=== PATIENT | male | born 1945 | race Asian ===

== ENCOUNTER 2022-03-04 07:07 | Day surgery (SDC) | payer MEDICARE ==
[2022-03-04] MEDS ORDERED: SODIUM CHLORIDE 0.9% 500 ML 500 ML IV SCH (08:00)
[2022-03-04] MEDS: SODIUM CHLORIDE 0.9% 1000 ML 1,000 ML IV SCH ×2 (08:05→10:15)
[2022-03-04 08:22] LABS: Calcium 8.8 mg/dL (8.4-10.2)
[2022-03-04] MEDS ORDERED: ASPIRIN 325 MG TAB PO NR (08:27)
[2022-03-04] MEDS ORDERED: DOBUTamine 100 MG in DEXTROSE 5% IN WATER 92 ML IV ONE (09:00)
[2022-03-04] MEDS ORDERED: HEPARIN/NS 5000 UNIT/500ML 1,000 ML IR ONE (09:47)
[2022-03-04] MEDS ORDERED: HEPARIN 10,000 UNITS/10 ML VIAL ONE (09:47)
[2022-03-04] MEDS ORDERED: LIDOCAINE (2%) 20 MG/1 ML VIAL 50 ML MDV INFILTRATI ONE (09:48)
[2022-03-04] MEDS ORDERED: MIDAZOLAM 2 MG/2 ML INJ ONE (09:48)
[2022-03-04] MEDS ORDERED: fentaNYL 100 MCG/2 ML INJ ONE (09:48)
[2022-03-04] MEDS ORDERED: NITROGLYCERIN SYRINGE 0 ML ONE (09:49)
[2022-03-04] MEDS ORDERED: DOBUTamine/D5W 500 MG/250 ML 500 MG/250 ML BAG IV ONE (09:52)
[2022-03-04] MEDS ORDERED: ASPIRIN EC 325 MG TAB PO SCH ×2 (10:00)
[2022-03-04] MEDS ORDERED: CLOPIDOGREL 75 MG TAB PO ONE (10:30)
[2022-03-04] MEDS ORDERED: traMADol 50 MG TAB PO PRN (11:45)
[2022-03-04] MEDS ORDERED: HYDROcodone/ACETAMINOPHEN 5-325 MG TAB PO PRN (11:45)
--- NOTE | 2022-03-04 12:02 | Short Stay Summary ---
Short Stay Documentation Date of service: 03/04/22 - History H&P: obtained from office - Allergies and Medications Current Medications: Allergies No Known Allergies Allergy (Verified 09/17/13 02:48) Home Medications Medication Instructions Recorded Confirmed Last Taken Type Aspirin EC [Halfprin EC] 81 mg PO DAILY 09/16/13 03/04/22 03/03/22 History Famotidine [Pepcid] 20 mg PO DAILY #30 tablet 09/20/13 03/04/22 03/03/22 Rx AtorvaSTATin [Lipitor] 20 mg PO BID 03/04/22 03/04/22 03/03/22 History Clopidogrel [Plavix] 75 mg PO QDAY 03/04/22 03/04/22 03/04/22 History Glimepiride [Amaryl] 2 mg PO QAM 03/04/22 03/04/22 03/03/22 History Ketoconazole 2% [Nizoral] 1 applicatio TP QDAY 03/04/22 03/04/22 03/03/22 History Losartan [Cozaar] 100 mg PO QDAY 03/04/22 03/04/22 03/03/22 History Phenytoin [Dilantin] 100 mg PO BID 03/04/22 03/04/22 03/03/22 History allopurinoL [Zyloprim] 100 mg PO QDAY 03/04/22 03/04/22 03/03/22 History carvediloL [Coreg] 25 mg PO BID 03/04/22 03/04/22 03/03/22 History hydroCHLOROthiazide 1 cap PO DAILY 03/04/22 03/04/22 03/01/22 History [Hydrochlorothiazide] Active Medications Hydrocodone Bitart/Acetaminophen (Hydrocodone/Acetaminophen 5-325 Mg Tab) 1 each PO Q4H PRN PRN Reason: Pain, Moderate (4-6) Sodium Chloride (Nacl 0.9% 500 Ml) 500 mls @ 50 mls/hr IV DIRECT REID Stop: 03/04/22 17:59 Sodium Chloride (Nacl 0.9% 1000 Ml) 1,000 mls @ 75 mls/hr IV DIRECT REID Last Admin: 03/04/22 10:15 Dose: 75 mls/hr Dobutamine HCl 100 mg/ (Dextrose) 100 mls @ 24.494 mls/hr IV ONCE ONE; Protocol Stop: 03/04/22 13:04 Last Admin: 03/04/22 11:15 Dose: 0 mls Tramadol HCl (Tramadol 50 Mg Tab) 50 mg PO Q4H PRN PRN Reason: Pain, Mild (1-3) - Brief post op/procedure progress note Date of procedure: 03/04/22 Pre-op diagnosis: Aortic stenosis Post-op diagnosis: same Anesthesia: local Estimated blood loss: minimal - Hospital course Hospital course: Patient presents today for cardiac cath. Patient tolerated procedure well with no complications. Patient to be discharged home and follow-up in the office as an outpatient. See cardiac cath report for full detail - Disposition Condition at discharge: Good Disposition: 01 HOME / SELF CARE / HOMELESS - Discharge Diagnoses (1) Chronic renal insufficiency Status: Acute (2) CAD (coronary artery disease) Status: Chronic (3) Cardiomyopathy Status: Chronic (4) Diabetes Status: Chronic (5) HTN (hypertension) Status: Chronic (6) History of CVA (cerebrovascular accident) Status: Chronic Short Stay Discharge Plan Activity: advance as tolerated Diet: low fat, low cholesterol, low salt Wound: keep clean and dry, per your surgeon's advice Follow up with: TOI STOUT [Other] - 7 Days CLARA ZEE MD [Staff Physician] - 03/17/22 8:30 am (Patient with follow- up appointment in our [place] office on 03/17/2022 at 8:30 AM. Phone #[phone])
[2022-03-04 16:06] VITALS: BP 144/60
--- NOTE | 2022-03-04 16:28 | Cardiac Catherization Report ---
DATE OF SERVICE: 03/04/2022 LEFT AND RIGHT HEART CATHETERIZATION CLINICAL INFORMATION: A 76-year-old male with history of coronary arterial disease with myocardial infarction 10 years ago with PCI of the LAD and RCA, has a stroke, had an echocardiogram, which shows decreased LV function from 5 years ago down to 25% with suspected aortic stenosis and has moderate fixed anterior apical, apical, and inferior segment defects, here for left and right heart catheterization, done with moderate sedation, started at 10:34, finished at 11:24 ,which is 50 minutes of moderate sedation. DESCRIPTION OF PROCEDURE: Procedure was done via the right common femoral artery, 6-Nauruan groin sheath sewn in, sterile technique and local anesthesia. A 6-Nauruan groin sheath placed in the common femoral vein. The right heart catheterization was done first, which revealed wedge of 16 mmHg, PA of 34/15 mmHg, RV is 40/10 mmHg, RA was mean of 13 mmHg. Aortic sat was 88%, RV sat was 67%, RA sat was 70%, PA sat 67%. The patient's SVR was 730. The patient's cardiac output by Bro was 7.34 and cardiac index 4.06. Then left heart catheterization was done and left systemt engaged_ with JL4 catheter. Left main is large and patent, mild luminal irregularities. LAD proximal has in-stent restenosis of 99%. Diagonal 1 small, was patent and the mid to distal LAD is filled via collaterals. Ramus is a small to medium caliber vessel, ostial 99% lesion. Circumflex is a large caliber vessel, mid 30%, bifurcates to a medium to large OM1 that is patent with mild luminal irregularities. OM2 is medium caliber, was patent, mild luminal irregularities. We see extensive collateralization from left to right feeding into the distal RCA into the mid-portion. RCA engaged with an AR mod catheter, comes from left coronary cusp. Proximal is patent, mid in-stent restenosis 100%. LV gram done in TURKMEN and RAMIREZ shows severe LV dysfunction. The patient's LVEDP is 34 mmHg, LV is 176, aortic is 176/75. No gradient across the aortic valve on pullback. The patient was infused with dobutamine at 10 mcg. LV is 150/31 mmHg. Aortic is 150/64 at dobutamine 20 mcg, LV is 170/33 mmHg and aortic is 170/72, so this is pseudo on echo as there was no increase in gradient across the aortic valve. Catheter was pulled back into the aorta. No difference from the femoral artery and the aortic artery. All catheters were taken over guidewire. A 6-Nauruan groin sheath was discontinued, manual pressure held. No hematoma, no bleeding. SUMMARY: Left main patent, LAD proximal in-stent restenosis 100% with left to left collaterals feeding into mid to distal LAD, ramus has an ostial 99%. Circumflex, proximal patent, mid 30%. OM1 patent, mild luminal irregularities, large caliber vessel. OM2 medium caliber, was patent. with left to right collaterals feeding into the mid to distal RCA. RCA comes through left coronary cusp, proximal patent, mid 100% in-stent restenosis, severe LV dysfunction, LVEDP of 34 mmHg. The patient has cardiac output 7.34. Cardiac index 4.06. No significant step-up and step-down. PA was 34/15 mmHg. Wedge was 16 mmHg, RV was 40/10 mmHg, RA was 13 mmHg. Cardiac output 7.34. Cardiac index 4.06. Discussed this with the patient's daughter and discussed for possible MACHINE II CUTTER of the LAD and RCA in view of decreased LV function. TID: [id number] RECEIPT: [id number] KATHY/ANA/JESUS/ETTA VIERA
--- NOTE | 2022-03-06 15:10 | Electrocardiograph Report ---
[facility] Test Date: 2022-03-04 Test Time: 08:00:45 Pat Name: JA FORBES Department: Room: Gender: M Fur Nailer: FALGUNI : 1945 Requested By: CLARA ZEE Order Number: [id number] Reading MD: Alexus Castillo Measurements Intervals Frakes Rate: 58 P: 38 LA: 195 QRS: 19 QRSD: 138 T: 190 QT: 458 QTc: 450 Interpretive Statements Sinus bradycardia Nonspecific intraventricular conduction delay Inferior infarct, age indeterminate Probable anteroseptal infarct, recent No previous ECG available for comparison Electronically Signed On 03-06-2022 15:10:12 EDT by Alexus Castillo
== END 2022-03-04 17:40 | disposition home or self-care (01) ==
LOC: CATHLABREC 07:07
PROVIDERS: ATTEND Internal Medicine
DX: I25.10 Atherosclerotic heart disease of native coronary artery without angina pectoris (principal); I25.2 Old myocardial infarction; I13.0 Hypertensive heart and chronic kidney disease with heart failure and stage 1 through stage 4 chronic kidney disease, or unspecified chronic kidney disease; E11.22 Type 2 diabetes mellitus with diabetic chronic kidney disease; N18.9 Chronic kidney disease, unspecified; I50.9 Heart failure, unspecified; E78.5 Hyperlipidemia, unspecified; D64.9 Anemia, unspecified; G40.909 Epilepsy, unspecified, not intractable, without status epilepticus; G93.41 Metabolic encephalopathy; Z79.899 Other long term (current) drug therapy; Z79.84 Long term (current) use of oral hypoglycemic drugs; Z79.82 Long term (current) use of aspirin; Z86.73 Personal history of transient ischemic attack (TIA), and cerebral infarction without residual deficits; Z95.5 Presence of coronary angioplasty implant and graft; Z87.01 Personal history of pneumonia (recurrent); Z98.890 Other specified postprocedural states
CPT/HCPCS: 36415; 80048; 93005; 93460; 99156; 99157; C1894; J1250; J1644; J2250; J3010; J3490; J7030; J7060; J1815; Q9967

== ENCOUNTER 2022-03-06 13:07 | Inpatient (IN) | payer MEDICARE ==
[2022-03-06] MEDS ORDERED: LACTATED RINGERS 1,000 ML IV ONE (14:01)
[2022-03-06] MEDS ORDERED: LACTULOSE 20 GM/30 ML ORAL LIQD PO ONE (14:02)
[2022-03-06] MEDS ORDERED: DOCUSATE SODIUM 100 MG/10 ML ORAL LIQD PO ONE (14:02)
--- NOTE | 2022-03-06 14:09 | Emergency Department Report ---
ED General Adult HPI - General Chief complaint: Abdominal Pain Stated complaint: CONSTIPATION PUI?: No Time Seen by Provider: 03/06/22 13:22 Source: patient, EMS Mode of arrival: Stretcher Limitations: No Limitations - History of Present Illness Initial comments: This is a pleasant 76-year-old male who speaks broken Serbian but we were able to communicate with each other and also the nurse; according to the patient he has a history of stroke in the past and is unable to move from waist down as well as he is right upper extremity. Patient also has a history of hypertension also diabetes. The reason Patient came into the ER today is due to constipation which according to patient he has not had a good bowel movement for several days. Patient himself states that he denies any other discomfort. Denies being on pain medication. Patient denies fever chill night sweat dizziness blurred vision lightheadedness headache tinnitus ear pain runny nose sore throat loss of taste loss of smell chest pain palpitation short breath cough abdominal pain nausea vomiting diarrhea dysuria myalgia arthralgia new rash and heat or cold intolerance. - Related Data Home Medications Medication Instructions Recorded Confirmed Last Taken Aspirin EC [Halfprin EC] 81 mg PO DAILY 09/16/13 03/04/22 03/03/22 AtorvaSTATin [Lipitor] 20 mg PO BID 03/04/22 03/04/22 03/03/22 Clopidogrel [Plavix] 75 mg PO QDAY 03/04/22 03/04/22 03/04/22 Glimepiride [Amaryl] 2 mg PO QAM 03/04/22 03/04/22 03/03/22 Ketoconazole 2% [Nizoral] 1 applicatio TP QDAY 03/04/22 03/04/22 03/03/22 Losartan [Cozaar] 100 mg PO QDAY 03/04/22 03/04/22 03/03/22 Phenytoin [Dilantin] 100 mg PO BID 03/04/22 03/04/22 03/03/22 allopurinoL [Zyloprim] 100 mg PO QDAY 03/04/22 03/04/22 03/03/22 carvediloL [Coreg] 25 mg PO BID 03/04/22 03/04/22 03/03/22 hydroCHLOROthiazide 1 cap PO DAILY 03/04/22 03/04/22 03/01/22 [Hydrochlorothiazide] Previous Rx's Medication Instructions Recorded Last Taken Type Famotidine [Pepcid] 20 mg PO DAILY #30 tablet 09/20/13 03/03/22 Rx Sennosides/Docusate Sodium 1 each PO DAILY 7 Days #7 03/06/22 Unknown Rx [Docusate Sodium-Senna Tablet] Simethicone 125 mg PO Q12H 5 Days #10 cap 03/06/22 Unknown Rx Allergies Allergy/AdvReac Type Severity Reaction Status Date / Time No Known Allergies Allergy Verified 03/06/22 13:09 ED Review of Systems ROS: Stated complaint: CONSTIPATION Other details as noted in HPI Comment: All other systems reviewed and negative Constitutional: no symptoms reported, see HPI Eyes: as per HPI ENT: as per HPI Respiratory: no symptoms reported Cardiovascular: as per HPI Endocrine: no symptoms reported, see HPI Gastrointestinal: constipation. denies: abdominal pain, nausea, vomiting, diarrhea, hematemesis, melena, hematochezia Musculoskeletal: as per HPI Skin: as per HPI Neurological: as per HPI Psychiatric: as per HPI Hematological/Lymphatic: as per HPI ED Past Medical Hx - Past Medical History Previous Medical History?: Yes Hx Hypertension: Yes Hx CVA: Yes Hx Heart Attack/AMI: Yes Hx Congestive Heart Failure: Yes Hx Diabetes: Yes - Surgical History Hx Coronary Stent: Yes (05/23/2003) - Social History Smoking Status: Never Smoker - Medications Home Medications: Home Medications Medication Instructions Recorded Confirmed Last Taken Type Aspirin EC [Halfprin EC] 81 mg PO DAILY 09/16/13 03/04/22 03/03/22 History Famotidine [Pepcid] 20 mg PO DAILY #30 tablet 09/20/13 03/04/22 03/03/22 Rx AtorvaSTATin [Lipitor] 20 mg PO BID 03/04/22 03/04/22 03/03/22 History Clopidogrel [Plavix] 75 mg PO QDAY 03/04/22 03/04/22 03/04/22 History Glimepiride [Amaryl] 2 mg PO QAM 03/04/22 03/04/22 03/03/22 History Ketoconazole 2% [Nizoral] 1 applicatio TP QDAY 03/04/22 03/04/22 03/03/22 History Losartan [Cozaar] 100 mg PO QDAY 03/04/22 03/04/22 03/03/22 History Phenytoin [Dilantin] 100 mg PO BID 03/04/22 03/04/22 03/03/22 History allopurinoL [Zyloprim] 100 mg PO QDAY 03/04/22 03/04/22 03/03/22 History carvediloL [Coreg] 25 mg PO BID 03/04/22 03/04/22 03/03/22 History hydroCHLOROthiazide 1 cap PO DAILY 03/04/22 03/04/22 03/01/22 History [Hydrochlorothiazide] Sennosides/Docusate Sodium 1 each PO DAILY 7 Days #7 03/06/22 Unknown Rx [Docusate Sodium-Senna Tablet] Simethicone 125 mg PO Q12H 5 Days #10 cap 03/06/22 Unknown Rx ED Physical Exam - General Limitations: No Limitations, Language Barrier (MILD LANGUAGE BARRIER BUT ABLE TO UNDERSTAND PATIENT STATES CONSTIPATION "NO POOP POOP") General appearance: alert, in no apparent distress - Head Head exam: Present: atraumatic, normocephalic, normal inspection - Eye Eye exam: Present: normal appearance, PERRL, EOMI Pupils: Present: normal accommodation - ENT ENT exam: Present: normal exam, mucous membranes moist - Neck Neck exam: Present: normal inspection - Respiratory Respiratory exam: Present: normal lung sounds bilaterally - Cardiovascular Cardiovascular Exam: Present: regular rate, normal rhythm - GI/Abdominal GI/Abdominal exam: Present: soft, diminished bowel sounds. Absent: distended, tenderness, guarding, rebound, rigid, normal bowel sounds - Extremities Exam Extremities exam: Present: normal inspection, normal capillary refill, other (Paralized bilateral lower extremity and right upper extremity.) - Back Exam Back exam: Present: normal inspection - Neurological Exam Neurological exam: Present: alert, oriented X3 - Psychiatric Psychiatric exam: Present: normal affect, normal mood - Skin Skin exam: Present: normal color ED Course Vital Signs 03/06/22 03/06/22 03/06/22 13:07 13:49 13:51 Temperature 98.7 F Pulse Rate 80 82 86 Respiratory 20 27 H 29 H Rate Blood Pressure Blood Pressure 86/55 [Left] O2 Sat by Pulse 99 100 Oximetry 03/06/22 03/06/22 03/06/22 14:01 14:41 15:01 Temperature Pulse Rate 81 74 73 Respiratory 20 20 22 Rate Blood Pressure 80/48 74/48 80/47 Blood Pressure [Left] O2 Sat by Pulse 100 100 100 Oximetry 03/06/22 03/06/22 03/06/22 15:41 17:01 17:11 Temperature Pulse Rate 77 82 Respiratory 20 24 Rate Blood Pressure 113/59 93/51 Blood Pressure [Left] O2 Sat by Pulse 100 100 96 Oximetry 03/06/22 18:01 Temperature Pulse Rate 87 Respiratory 22 Rate Blood Pressure 100/53 Blood Pressure [Left] O2 Sat by Pulse 98 Oximetry - Reevaluation(s) Reevaluation #1: 03/06/22 19:51 AFTER 1 LITER OF FLUID AND RECHECK OF PATIENT'S BMP; THERE IS NO SIGNIFICANT CHANGES IN PATIENT'S RENAL FUNCTION SINCE 03/04; WHICH LIKELY CKD. REST OF LABS UNREMARKABLE. IMAGE REVEALS NO SBO/LBO AND NO OTHER ACUTE FINDING. WILL GIVE SIMETHCONE AND ALSO GOOD BOWEL REGIMEN. 03/06/22 20:07 ED Medical Decision Making - Lab Data Result diagrams: 03/06/22 18:27 Critical care attestation.: If time is entered above; I have spent that time in minutes in the direct care of this critically ill patient, excluding procedure time. ED Disposition Clinical Impression: Abdominal bloating with cramps Disposition: 01 HOME / SELF CARE / HOMELESS Is pt being admited?: No Does the pt Need Aspirin: No Condition: Stable Additional Instructions: MAKE A FOLLOW UP APPOINTMENT WITH YOUR PRIMARY CARE PROVIDER TO BE SEEN WITHIN 3-5 DAYS. IN THE MEANTIME, TAKE THE MEDICATION THAT'S PRESCRIBED FOR YOU. Prescriptions: Sennosides/Docusate Sodium [Docusate Sodium-Senna Tablet] 1 each PO DAILY 7 Days #7 Simethicone 125 mg PO Q12H 5 Days #10 cap Referrals: PRIMARY CARE, [Primary Care Provider] - 3-5 Days Time of Disposition: 20:02
--- NOTE | 2022-03-06 14:42 | XRay Report ---
ABDOMEN 1 VIEW 03/06/2022 1:57 PM INDICATION / CLINICAL INFORMATION: CONSTIPATION. COMPARISON: None available. FINDINGS: TUBES / LINES: None. BOWEL GAS PATTERN: There is gaseous distention of the stomach. There is gas noted throughout the angelica l. The bowel is normal in caliber. There is small amount of stool noted in the colon. FREE AIR / EXTRALUMINAL GAS: None. ADDITIONAL FINDINGS: No significant additional findings. IMPRESSION: 1. No acute abnormality. Signer Name: Jose A Collier MD Signed: 03/06/2022 2:38 PM Workstation Name: [id number]
[2022-03-06] MEDS ORDERED: POLYETHYLENE GLYCOL 3350 17 GM POWDER PO ONE (15:00)
[2022-03-06] MEDS ORDERED: SIMETHICONE 80 MG CHEW TAB PO ONE (16:10)
[2022-03-06 19:23] LABS: Calcium 8.1 mg/dL (8.4-10.2)
[2022-03-07] MEDS ORDERED: MORPHINE 2 MG/1 ML INJ IV ONE (11:44)
[2022-03-07] MEDS ORDERED: ONDANSETRON 4 MG/2 ML INJ IV ONE (11:44)
--- NOTE | 2022-03-07 11:44 | History and Physical Report ---
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 Patient has diminished cognition and provides minimal history. Patient is bedbound and nonambulatory and has a palliative performance score 30% and requires 6/6 assistance with activities of daily living. Patient history taken from EMS staff, ED staff, as well as patient daughter who is at bedside during exam and interview. As per daughter the patient has experienced right leg swelling and redness over the past 2 days with persistent and worsening symptoms over the same timeframe. EMS was notified and upon arrival the patient was found to be in distress and subsequent transported to [facility] for further care and evaluation of the aforementioned symptoms. The patient was seen and evaluated in the emergency department. All lab and imaging studies reviewed. Patient found to be hypotensive with a systolic blood pressure in the 70s. Patient found to have encephalopathy, acute kidney injury, suspected right femoral artery injury, malnutrition, and debility, as well as clinical symptoms consistent with CHF decompensation. Patient admitted to telemetry due to inc reased risk of worsening symptoms after medical stabilization. Vascular surgery team consulted in ED. Cardiology team consulted in ED. Patient has diminished cognition but has a positive gag reflex and is able to protect his airway without difficulty at the time my evaluation. No reports of fever, chills, chest pain, palpitation, skin rash, recent contact, or known exposure to COVID- 19. No prior admission for review. All medication listed at time of admission has been reconciled. Advanced care planning conducted in E. Past History Past Medical History: acute CT, CAD, diabetes, seizures, stroke, other (See HPI) Past Surgical History: Other (Cardiac stent placement) Social history: single. denies: smoking, alcohol abuse, prescription drug abuse Family history: diabetes, hypertension Medications and Allergies Allergies Allergy/AdvReac Type Severity Reaction Status Date / Time No Known Allergies Allergy Verified 03/06/22 13:09 Home Medications Medication Instructions Recorded Confirmed Last Taken Type Aspirin EC [Halfprin EC] 81 mg PO DAILY 09/16/13 03/04/22 03/03/22 History Famotidine [Pepcid] 20 mg PO DAILY #30 tablet 09/20/13 03/04/22 03/03/22 Rx AtorvaSTATin [Lipitor] 20 mg PO BID 03/04/22 03/04/22 03/03/22 History Clopidogrel [Plavix] 75 mg PO QDAY 03/04/22 03/04/22 03/04/22 History Glimepiride [Amaryl] 2 mg PO QAM 03/04/22 03/04/22 03/03/22 History Ketoconazole 2% [Nizoral] 1 applicatio TP QDAY 03/04/22 03/04/22 03/03/22 History Losartan [Cozaar] 100 mg PO QDAY 03/04/22 03/04/22 03/03/22 History Phenytoin [Dilantin] 100 mg PO BID 03/04/22 03/04/22 03/03/22 History allopurinoL [Zyloprim] 100 mg PO QDAY 03/04/22 03/04/22 03/03/22 History carvediloL [Coreg] 25 mg PO BID 03/04/22 03/04/22 03/03/22 History hydroCHLOROthiazide 1 cap PO DAILY 03/04/22 03/04/22 03/01/22 History [Hydrochlorothiazide] Sennosides/Docusate Sodium 1 each PO DAILY 7 Days #7 03/06/22 Unknown Rx [Docusate Sodium-Senna Tablet] Simethicone 125 mg PO Q12H 5 Days #10 cap 03/06/22 Unknown Rx Review of Systems ROS unobtainable: due to mental status Exam - Constitutional Vitals: Temp Pulse Resp BP Pulse Ox 98.7 F 87 22 100/53 98 03/06/22 13:07 03/06/22 18:01 03/06/22 18:01 03/06/22 18:01 03/06/22 18:01 General appearance: Present: mild distress, cachectic - EENT Eyes: Present: PERRL ENT: hearing intact, clear oral mucosa - Neck Neck: Present: supple - Respiratory Respiratory effort: normal Respiratory: bilateral: diminished - Cardiovascular Heart Sounds: Present: S1 & S2. Absent: rub, click - Extremities Extremities: pulses symmetrical Extremity abnormal: edema, erythema, tenderness, other (Right groin) Peripheral Pulses: abnormal - Abdominal General gastrointestinal: Present: soft, non-tender, non-distended, normal bowel sounds Male genitourinary: Present: normal - Integumentary Integumentary: Present: clear, dry - Musculoskeletal Musculoskeletal: generalized weakness - Psychiatric Psychiatric: no appropriate mood/affect, no intact judgment & insight, no memory intact - Neurologic Neurologic: CNII-XII intact, focal deficits, no moves all extremities, no gait normal Results - Labs CBC & Chem 7: 03/06/22 18:27 Labs: Abnormal lab results 03/06/22 Range/Units 18:27 Potassium 5.2 H (3.6-5.0) mmol/L BUN 25 H (9-20) mg/dL Creatinine 1.8 H (0.8-1.3) mg/dL Glucose 150 H (75-100) mg/dL Calcium 8.1 L (8.4-10.2) mg/dL Assessment and Plan - Patient Problems (1) Injury of femoral artery Current Visit: Yes Status: Acute Plan to address problem: Vascular surgery team consulted, right lower extremity Doppler, apply pressure dressing to right lower extremity, (2) CHF (congestive heart failure) Current Visit: Yes Status: Acute Qualifiers: Heart failure type: systolic Heart failure chronicity: acute on chronic Qualified Code(s): I50.23 - Acute on chronic systolic (congestive) heart failure Plan to address problem: Strict I's/O, monitor urine output every shift, daily weight, afterload reduction, blood pressure control, supplemental oxygen, cardiology team consulted. (3) ALEXIS (acute kidney injury) Current Visit: Yes Status: Acute Plan to address problem: Monitor urine output every shift, daily weight, monitor fluid balance, (4) Seizure disorder Current Visit: Yes Status: Acute Plan to address problem: Continue antiepileptic therapy, supportive care. (5) Metabolic encephalopathy Current Visit: Yes Status: Acute Plan to address problem: Neuro check, seizure precautions, supportive care, aspiration precautions, fall precautions. (6) Malnutrition Current Visit: Yes Status: Acute Qualifiers: Malnutrition type: protein-calorie malnutrition Protein-calorie malnutrition severity: moderate Qualified Code(s): E44.0 - Moderate protein- calorie malnutrition Plan to address problem: Encourage increased protein intake when awake and alert only, dietary supplementation. (7) Vascular dementia Current Visit: Yes Status: Acute Qualifiers: Dementia behavioral disturbance: without behavioral disturbance Qualified Code(s): F01.50 - Vascular dementia without behavioral disturbance Plan to address problem: Verbal prompting, verbal redirection, benzodiazepine therapy as clinically ind icated. (8) Cerebral atherosclerosis Current Visit: Yes Status: Acute Plan to address problem: Risk factor reduction, antiplatelet therapy, supportive care. (9) Diabetes Current Visit: Yes Status: Acute Plan to address problem: Consistent carbohydrate diet, Accu-Chek, insulin protocol, hypoglycemia protocol (10) Hyperlipidemia Current Visit: Yes Status: Acute Qualifiers: Hyperlipidemia type: mixed hyperlipidemia Qualified Code(s): E78.2 - Mixed hyperlipidemia Plan to address problem: Statin therapy, supportive care. (11) Hypertension Current Visit: Yes Status: Acute Plan to address problem: Monitor blood pressure occasionally. Patient currently hypotensive. Hold antihypertensive therapy for systolic blood pressure less than equal to 110 mmHg. (12) DVT prophylaxis Current Visit: Yes Status: Acute Plan to address problem: SCD to bilateral lower extremities while in bed (13) Advance care planning Current Visit: Yes Status: Acute Plan to address problem: Disease education conducted, care plan discussed, diagnoses discussed, prognosis discussed, patient is full code. Patient family acknowledged understanding and agreement with care plan, +30 minutes. (14) Preventative health care Current Visit: Yes Status: Acute Plan to address problem: Patient family counseled regarding home safety, outpatient follow-up with primary care physician for all age and risk factor appropriate screening test. +30 minutes.
[2022-03-07] MEDS ORDERED: HYDROmorphone 0.5 MG/0.5 ML INJ IV PRN (11:54)
[2022-03-07] MEDS ORDERED: ONDANSETRON 4 MG/2 ML INJ IV PRN (11:54)
[2022-03-07] MEDS ORDERED: ALBUTEROL 2.5 MG/3 ML NEBU IH PRN (11:54)
[2022-03-07] MEDS ORDERED: DEXTROSE 50% IN WATER (25GM) 50 ML SYRINGE IV PRN (11:58)
--- NOTE | 2022-03-07 12:35 | Consultation ---
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 History is taken from patient's daughter due to patient inability to communicate. However, per patients daughter who was at bedside she reports that the patient has right lower extremity pain with bruising and blisters at the site where patient had a cardiac cath on 03/04/2022. Patient's daughter reports that the facility which patient was staying is refusing to take patient back. Patient is followed by Dr. Neff of our practice. Cardiology consulted for hematoma. Past History Past Medical History: CAD, diabetes, hypertension, hyperlipidemia, stroke Past Surgical History: No surgical history Social history: denies: smoking Medications and Allergies Allergies Allergy/AdvReac Type Severity Reaction Status Date / Time No Known Allergies Allergy Verified 03/06/22 13:09 Home Medications Medication Instructions Recorded Confirmed Last Taken Type Aspirin EC [Halfprin EC] 81 mg PO DAILY 09/16/13 03/04/22 03/03/22 History Famotidine [Pepcid] 20 mg PO DAILY #30 tablet 09/20/13 03/04/22 03/03/22 Rx AtorvaSTATin [Lipitor] 20 mg PO BID 03/04/22 03/04/22 03/03/22 History Clopidogrel [Plavix] 75 mg PO QDAY 03/04/22 03/04/22 03/04/22 History Glimepiride [Amaryl] 2 mg PO QAM 03/04/22 03/04/22 03/03/22 History Ketoconazole 2% [Nizoral] 1 applicatio TP QDAY 03/04/22 03/04/22 03/03/22 History Losartan [Cozaar] 100 mg PO QDAY 03/04/22 03/04/22 03/03/22 History Phenytoin [Dilantin] 100 mg PO BID 03/04/22 03/04/22 03/03/22 History allopurinoL [Zyloprim] 100 mg PO QDAY 03/04/22 03/04/22 03/03/22 History carvediloL [Coreg] 25 mg PO BID 03/04/22 03/04/22 03/03/22 History hydroCHLOROthiazide 1 cap PO DAILY 03/04/22 03/04/22 03/01/22 History [Hydrochlorothiazide] Sennosides/Docusate Sodium 1 each PO DAILY 7 Days #7 03/06/22 Unknown Rx [Docusate Sodium-Senna Tablet] Simethicone 125 mg PO Q12H 5 Days #10 cap 03/06/22 Unknown Rx Active Meds: Active Medications Acetaminophen (Acetaminophen 325 Mg Tab) 650 mg PO Q4H PRN PRN Reason: Pain MILD(1-3)/Fever >100.5/[place] Albuterol (Albuterol 2.5 Mg/3 Ml Nebu) 2.5 mg IH Q4HRT PRN PRN Reason: Shortness Of Breath Allopurinol (Allopurinol 100 Mg Tab) 100 mg PO QDAY REID Atorvastatin Calcium (Atorvastatin 20 Mg Tab) 20 mg PO QHS REID Atorvastatin Calcium (Atorvastatin 40 Mg Tab) 20 mg PO BID [facility] Dextrose (Dextrose 50% In Water (25gm) 50 Ml Syringe) 50 ml IV Q30MIN PRN; Protocol PRN Reason: Hypoglycemia Famotidine (Famotidine 10 Mg Tab) 20 mg PO DAILY [facility] Hydromorphone HCl (Hydromorphone 0.5 Mg/0.5 Ml Inj) 0.5 mg IV Q3H PRN PRN Reason: Pain , Severe (7-10) Sodium Chloride (Nacl 0.9% 1000 Ml) 1,000 mls @ 42 mls/hr IV DIRECT [facility] Insulin Human Lispro (Insulin Lispro 100 Unit/Ml) 0 unit SUB-Q ACHS REID; Protocol Ketoconazole (Ketoconazole 2% Cream 15 Gm) 1 applic TP QDAY [facility] Ondansetron HCl (Ondansetron 4 Mg/2 Ml Inj) 4 mg IV Q8H PRN PRN Reason: Nausea And Vomiting Oxycodone/Acetaminophen (Oxycodone /Acetaminophen 5-325mg Tab) 1 tab PO Q6H PRN PRN Reason: Pain, Moderate (4-6) Phenytoin (Phenytoin 100 Mg Capsule.Er) 100 mg PO BID [facility] Sodium Chloride (Sodium Chloride 0.9% 10 Ml Flush Syringe) 10 ml IV BID REID Sodium Chloride (Sodium Chloride 0.9% 10 Ml Flush Syringe) 10 ml IV PRN PRN PRN Reason: LINE FLUSH Review of Systems Constitutional: no weight loss, no weight gain, no fever, no chills Ears, nose, mouth and throat: no sinus pressure, no sinus pain Cardiovascular: no chest pain, no orthopnea Respiratory: no shortness of breath, no dyspnea on exertion Gastrointestinal: abdominal pain, constipation Genitourinary Male: no dysuria Integumentary: sores, blisters, color changes Neurological: no head injury, no transient paralysis Psychiatric: no anxiety, no memory loss Physical Examination Vital Signs Temp Pulse Resp BP Pulse Ox 98.7 F 80 20 86/55 99 03/06/22 13:07 03/06/22 13:07 03/06/22 13:07 03/06/22 13:07 03/06/22 13:07 General appearance: no acute distress Neck: Positive: trachea midline Cardiac: Positive: Reg Rate and Rhythm Lungs: Positive: Normal Breath Sounds Neuro: Positive: Grossly Intact Abdomen: Positive: Soft Skin: Positive: Other Extremities: Present: upper extr. pulses. Absent: edema Results 03/06/22 18:27 Comprehensive Metabolic Panel 03/06/22 Range/Units 18:27 Sodium 138 (137-145) mmol/L Potassium 5.2 H (3.6-5.0) mmol/L Chloride 106.9 (98-107) mmol/L Carbon Dioxide 22 (22-30) mmol/L BUN 25 H (9-20) mg/dL Creatinine 1.8 H (0.8-1.3) mg/dL Glucose 150 H (75-100) mg/dL Calcium 8.1 L (8.4-10.2) mg/dL - Imaging and Cardiology Echo: report reviewed Cardiac cath: report reviewed Assessment and Plan Patient is a 76-year-old male with a past medical history of ischemic cardiomyopathy, hypertension, chronic renal sufficiency, history of CVA, susana betes who presents to the ED for leg pain. Hematoma/pseudoaneurysm? Chronic systolic heart failure Ischemic cardiomyopathy Coronary artery disease Hypertension Diabetes Chronic renal insufficiency History of CVA Echocardiogram 02/23/2022- LV chamber is moderately dilated. There is borderline LV hypertrophy. LV systolic function is severely reduced. The estimated left ventricle ejection fraction is 25-30%. Normal left atrial pressure with Grade I diastolic dysfunction. There is basal septal hypokinesis. There is mid anterior, mid septal, apical septal, apical lateral akinesis. There is normal right ventricular size, wall dimension, and systolic function. The aortic valve leaflet excursion is moderately reduced. There is mild aortic regurgitation. There is mild aortic valve stenosis. AV Mean gradient: 7.07 mmHg. AV Peak gradient: 11.6 mmHg. There is no mitral regurgitation. There is trace tricuspid regurgitation. There is no pulmonic regurgitation. No left ventricular thrombus noted with LV contrast images Cardiac cath 03/04/2022-left main patent, LAD proximal in-stent restenosis 100% with left to left collaterals feeding into the mid to ostial LAD, ramus has an ostial 99%. Circumflex, proximal patent mid 30%. OM1 patent, mild luminary irregularities, large caliber vessel. OM2 medium caliber was patent with left to right collaterals feeding into the mid to distal RCA. RCA comes to the left coronary cusp, proximal pain, mid 100% in-stent restenosis, severe LV dysfunction Outpatient medications: Aspirin, plavix, Losartan 100mg PO QD, atorvastatin 20mg PO QHs, Coreg 25mg PO BID, HCTZ 12.5mg PO QD Plan: Patient found to have hematoma with blisters on right lower extremity cardiac catheterization site on 03/04/2022 Stat arterial duplex rule shows a small pseudoaneurysm off the right proximal superficial femoral artery. Vascular following will defer to their recommendations. Apply pressure dressing Stat CBC ordered Will resume atorvastatin Will hold off on GDMT due to patient's hypotension at this time Will hold off on aspirin and Plavix until CBC results to ensure patient is not anemic Patient seen in conjunction with Dr. Neff who agrees with this plan of care - Patient Problems (1) Renal insufficiency Current Visit: Yes Status: Acute (2) Hematoma Current Visit: Yes Status: Acute (3) Pseudoaneurysm Current Visit: Yes Status: Acute (4) CAD (coronary artery disease) Current Visit: No Status: Chronic (5) Cardiomyopathy Current Visit: No Status: Chronic (6) Diabetes Current Visit: No Status: Chronic (7) HTN (hypertension) Current Visit: No Status: Chronic (8) History of CVA (cerebrovascular accident) Current Visit: No Status: Chronic
--- NOTE | 2022-03-07 12:39 | Vascular Lab Report ---
DUPLEX DOPPLER LOWER EXTREMITY ARTERIAL, RIGHT INDICATION / CLINICAL INFORMATION: r/o pseudoanerysm. TECHNIQUE: Arterial duplex examination of the right lower extremity performed using B-mode, color sheba w and spectral Doppler assessment. FINDINGS: RIGHT: Common Femoral Artery: PSV 100 cm/sec. Triphasic waveform. Proximal SFA: PSV 80 cm/sec. Triphasic waveform. Mid SFA: PSV 123 cm/sec. Biphasic waveform. Distal SFA: PSV 65 cm/sec. Triphasic waveform. Popliteal Artery: PSV 95 cm/sec. Triphasic waveform. Posterior tibial artery: Not well seen Dorsalis Pedis Artery: Not well seen ADDITIONAL FINDINGS: There is a pseudoaneurysm off of the common femoral artery. This pseudoaneurysm has a neck measuring 3 mm and the pseudoaneurysm itself measures 0.6 x 0.5 cm RIGHT ANANYA: Not measured IMPRESSION: 1. Pseudoaneurysm noted off the right common femoral artery with a 3 mm neck. The pseudoaneurysm itse lf measures approximately 0.6 x 0.5 cm. Ankle-Brachial Index (ANANYA): - Calcified arteries > 1.4 - Normal = 0.9-1.4 - Mild PAD = 0.7-0.89 - Moderate PAD = 0.51-0.69 - Severe PAD < 0.5 Doppler Waveform: - Triphasic is normal. - Biphasic is abnormal if clear transition from triphasic signal along vascular tree. - Monophasic is abnormal. Signer Name: Jason Jack DO Signed: 03/07/2022 12:34 PM Workstation Name: [id number]
--- NOTE | 2022-03-07 13:29 | Consultation ---
History of Present Illness - Reason for Consult Consult date: 03/07/22 Psuedoaneurysm Requesting physician: LCARA ZEE - History of Present Illness 76 YO Male Assisted Living Facility Resident with CVA complicated by RHP and Dysarthria on DAPT, Debilty, DM, [place], CHF, HLD, Gout, HTN, CAD S/P Stent placement presents ED for evaluation. Patient has diminished cognition and is unable to provide detailed history. This is a pleasant 76-year-old male who speaks broken Welsh but we were able to communicate with each other and also the nurse; according to the patient he has a history of stroke in the past and is unable to move from waist down as well as he is right upper extremity. Patient also has a history of hypertension also diabetes. The reason Patient came into the ER today is due to constipation which according to patient he has not had a good bowel movement for several days. Patient himself states that he denies any other discomfort. Denies being on pain medication. Patient denies fever chill night sweat dizziness blurred vision lightheadedness headache tinnitus ear pain runny nose sore throat loss of taste loss of smell chest pain palpitation short breath cough abdominal pain nausea vomiting diarrhea dysuria myalgia arthralgia new rash and heat or cold intolerance. Past History Past Medical History: CAD, diabetes, hypertension, hyperlipidemia, stroke Past Surgical History: No surgical history Social history: denies: smoking Medications and Allergies Allergies Allergy/AdvReac Type Severity Reaction Status Date / Time No Known Allergies Allergy Verified 03/06/22 13:09 Home Medications Medication Instructions Recorded Confirmed Last Taken Type Aspirin EC [Halfprin EC] 81 mg PO DAILY 09/16/13 03/04/22 03/03/22 History Famotidine [Pepcid] 20 mg PO DAILY #30 tablet 09/20/13 03/04/22 03/03/22 Rx AtorvaSTATin [Lipitor] 20 mg PO BID 03/04/22 03/04/22 03/03/22 History Clopidogrel [Plavix] 75 mg PO QDAY 03/04/22 03/04/22 03/04/22 History Glimepiride [Amaryl] 2 mg PO QAM 03/04/22 03/04/22 03/03/22 History Ketoconazole 2% [Nizoral] 1 applicatio TP QDAY 03/04/22 03/04/22 03/03/22 History Losartan [Cozaar] 100 mg PO QDAY 03/04/22 03/04/22 03/03/22 History Phenytoin [Dilantin] 100 mg PO BID 03/04/22 03/04/22 03/03/22 History allopurinoL [Zyloprim] 100 mg PO QDAY 03/04/22 03/04/22 03/03/22 History carvediloL [Coreg] 25 mg PO BID 03/04/22 03/04/22 03/03/22 History hydroCHLOROthiazide 1 cap PO DAILY 03/04/22 03/04/22 03/01/22 History [Hydrochlorothiazide] Sennosides/Docusate Sodium 1 each PO DAILY 7 Days #7 03/06/22 Unknown Rx [Docusate Sodium-Senna Tablet] Simethicone 125 mg PO Q12H 5 Days #10 cap 03/06/22 Unknown Rx Active Meds: Active Medications Acetaminophen (Acetaminophen 325 Mg Tab) 650 mg PO Q4H PRN PRN Reason: Pain MILD(1-3)/Fever >100.5/[place] Albuterol (Albuterol 2.5 Mg/3 Ml Nebu) 2.5 mg IH Q4HRT PRN PRN Reason: Shortness Of Breath Allopurinol (Allopurinol 100 Mg Tab) 100 mg PO QDAY [facility] Atorvastatin Calcium (Atorvastatin 20 Mg Tab) 20 mg PO QHS REID Atorvastatin Calcium (Atorvastatin 40 Mg Tab) 20 mg PO BID [facility] Dextrose (Dextrose 50% In Water (25gm) 50 Ml Syringe) 50 ml IV Q30MIN PRN; Protocol PRN Reason: Hypoglycemia Famotidine (Famotidine 10 Mg Tab) 20 mg PO DAILY [facility] Hydromorphone HCl (Hydromorphone 0.5 Mg/0.5 Ml Inj) 0.5 mg IV Q3H PRN PRN Reason: Pain , Severe (7-10) Sodium Chloride (Nacl 0.9% 1000 Ml) 1,000 mls @ 42 mls/hr IV DIRECT [facility] Insulin Human Lispro (Insulin Lispro 100 Unit/Ml) 0 unit SUB-Q ACHS [facility]; Protocol Ketoconazole (Ketoconazole 2% Cream 15 Gm) 1 applic TP QDAY [facility] Ondansetron HCl (Ondansetron 4 Mg/2 Ml Inj) 4 mg IV Q8H PRN PRN Reason: Nausea And Vomiting Oxycodone/Acetaminophen (Oxycodone /Acetaminophen 5-325mg Tab) 1 tab PO Q6H PRN PRN Reason: Pain, Moderate (4-6) Phenytoin (Phenytoin 100 Mg Capsule.Er) 100 mg PO BID [facility] Sodium Chloride (Sodium Chloride 0.9% 10 Ml Flush Syringe) 10 ml IV BID [facility] Sodium Chloride (Sodium Chloride 0.9% 10 Ml Flush Syringe) 10 ml IV PRN PRN PRN Reason: LINE FLUSH Review of Systems All systems: negative Exam - Constitutional Vitals: Temp Pulse Resp BP Pulse Ox 98.7 F 87 16 115/61 98 03/06/22 13:07 03/07/22 12:13 03/07/22 12:13 03/07/22 12:13 03/07/22 12:13 General appearance: Present: mild distress (Right groin and thigh pain, large hematoma) - EENT Eyes: Present: EOM intact ENT: hearing intact - Respiratory Respiratory effort: normal - Extremities Extremities: normal temperature, normal color, abnormal (Large hematoma of the right thigh with some lateral areas of blistering and some medial areas of skin breakdown.) - Abdominal General gastrointestinal: Present: soft, non-tender - Psychiatric Psychiatric: appropriate mood/affect, agitated Results - Labs CBC & Chem 7: 03/06/22 18:27 Labs: Abnormal lab results 03/06/22 Range/Units 18:27 Potassium 5.2 H (3.6-5.0) mmol/L BUN 25 H (9-20) mg/dL Creatinine 1.8 H (0.8-1.3) mg/dL Glucose 150 H (75-100) mg/dL Calcium 8.1 L (8.4-10.2) mg/dL - Imaging and Cardiology Venous US: report reviewed, image reviewed (Arterial ultrasound) Assessment and Plan 76-year-old male with recent right and left heart cath for coronary artery disease and aortic stenosis who had the cath performed on 03/04/2022 and this was complicated by right groin hematoma with pseudoaneurysm. Patient is on dual antiplatelet therapy. Patient has a moderate amount of discomfort of the right thigh. He has chronic deficits of the right thigh and foot with limited motor function at baseline. The bilateral calves and feet are warm and well-perfused. Ultrasound demonstrates a small 6 mm pseudoaneurysm off the right proximal superficial femoral artery with a 1 to 2 mm neck. Pressure dressing applied to the right groin which will be removed tomorrow. Repeat ultrasound will be performed tomorrow. The pseudoaneurysm is below the typical size requiring solitario tment. Hopefully this will thrombose overnight. Will need wound care for management of the skin breakdown.
[2022-03-07] MEDS: INSULIN LISPRO 100 UNIT/ML SUB-Q SCH ×2 (18:50→21:30)
[2022-03-07] MEDS: PHENYTOIN 100 MG CAPSULE.ER PO SCH (21:48)
[2022-03-08 07:28] LABS: Mean Corpuscular HGB Conc 32 % (32-34); Mean Corpuscular Volume 96 fl (84-94); Platelet Count 184 K/mm3 (140-440); Red Blood Count 1.88 M/mm3 (3.65-5.03); Red Cell Distribution Width 14.4 % (13.2-15.2)
[2022-03-08 08:00] LABS: Hemoglobin 5.8 gm/dl (11.8-15.2)
[2022-03-08] MEDS ORDERED: SODIUM CHLORIDE 0.9% 500 ML 500 ML IV NR (08:14)
--- NOTE | 2022-03-08 08:25 | Progress Note ---
<KIERRA GUTIERREZ - Last Filed: 03/08/22 16:13> Assessment and Plan - Patient Problems (1) ALEXIS (acute kidney injury) Current Visit: Yes Status: Acute Plan to address problem: Likely secondary to dehydration/blood loss Monitor kidney function. We will consult chin strap cutter if needed Avoid nephrotoxic drugs including nonsteroidal anti-inflammatory agents. (2) CHF (congestive heart failure) Current Visit: Yes Status: Acute Qualifiers: Heart failure type: systolic Heart failure chronicity: acute on chronic Qualified Code(s): I50.23 - Acute on chronic systolic (congestive) heart failure Plan to address problem: Strict I's/O, monitor urine output every shift, daily weight Monitor blood pressureBP med on hold due to low blood pressure likely secondary to blood loss from hematoma Patient is status post cardiac cathc03/04/22-family brought him back due to right groin hematoma and bruises patient has history of ischemic cardiomyopathy, CVA and right-sided paraplegic. (3) Anemia Current Visit: Yes Status: Acute Plan to address problem: Likely secondary from blood loss left thigh hematoma post catheterization Transfuse 2 units of packed red blood cells Monitor H&H, start multivitamin and folic acid supplement Abdominal x-ray and chest x-ray doneno acute finding (4) Hypertension Current Visit: Yes Status: Acute Plan to address problem: Monitor blood pressure Hold blood pressure medicine presentlypatient has low blood pressure likely secondary to blood loss. Will resume antihypertensive if needed when patient is stable. 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 Position change every 2 hours and keep patient clean and dry. PT OT when patient is stable (8) Seizure disorder Current Visit: Yes Status: Acute Plan to address problem: Continue antiplatelet/seizure disorder Seizure precaution/fall precaution History Interval history: 03/08/22-Patient seen at bedside with patient nurse present. He is status post left femoral cardiac cath with hematoma and pressure dressing present. No evidence of bleeding noted on the dressing. Bilateral pedal pulses positive. I reviewed lab, medication record, and vital signs. H&H 5.8 today. Patient is typed and crossed for 2 units packed red blood cells. Blood pressure 94/54. 250 normal saline bolus x1. O2 sat 90 to 95%. Patient on continuous monitor and oxygen 2 L nasal cannula till completion of blood transfusion. I reviewed plan of care with the attending. Hospitalist Physical - Constitutional Vitals: Temp Pulse Resp BP Pulse Ox 98.4 F 81 18 104/55 97 03/08/22 04:12 03/08/22 04:12 03/08/22 04:12 03/08/22 04:12 03/08/22 08:03 General appearance: Present: mild distress - Respiratory Respiratory effort: other (Patient seen on room airplaced on nasal cannula 2 L. O2 sat 95 to 98%) Respiratory: bilateral: CTA - Extremities Extremity abnormal: other (Left groin hematomapositive pedal pulses) - Abdominal General gastrointestinal: non-tender - Integumentary Integumentary: Present: clear, warm - Allied Health Allied health notes reviewed: nursing, PT Results - Labs CBC & Chem 7: 03/08/22 06:18 03/08/22 06:18 Labs: Laboratory Last Values WBC 13.6 K/mm3 (4.5-11.0) H 03/08/22 06:18 RBC 1.88 M/mm3 (3.65-5.03) L 03/08/22 06:18 Hgb 5.8 gm/dl (11.8-15.2) L* 03/08/22 06:18 Hct 18.0 % (35.5-45.6) L* 03/08/22 06:18 MCV 96 fl (84-94) H 03/08/22 06:18 MCH 32 pg (28-32) 03/08/22 06:18 MCHC 32 % (32-34) 03/08/22 06:18 RDW 14.4 % (13.2-15.2) 03/08/22 06:18 Plt Count 184 K/mm3 (140-440) 03/08/22 06:18 Sodium 141 mmol/L (137-145) 03/08/22 06:18 Potassium 4.5 mmol/L (3.6-5.0) 03/08/22 06:18 Chloride 107.1 mmol/L (98-107) H 03/08/22 06:18 Carbon Dioxide 22 mmol/L (22-30) 03/08/22 06:18 Anion Gap 16 mmol/L 03/08/22 06:18 BUN 36 mg/dL (9-20) H 03/08/22 06:18 Creatinine 2.0 mg/dL (0.8-1.3) H 03/08/22 06:18 Estimated GFR 33 ml/min 03/08/22 06:18 BUN/Creatinine Ratio 18 % 03/08/22 06:18 Glucose 95 mg/dL (75-100) 03/08/22 06:18 POC Glucose 98 mg/dL (70-105) 03/08/22 07:37 Calcium 8.0 mg/dL (8.4-10.2) L 03/08/22 06:18 Win/IV: Voiding Method Condom Catheter Active Medications - Current Medications Current Medications: Generic Name Dose Route Start Last Admin Trade Name Freq PRN Reason Stop Dose Admin Acetaminophen 650 mg 03/07/22 11:54 Acetaminophen 325 Mg Tab PO Q4H PRN Pain MILD(1-3)/Fever >100.5/CALLOWAY Albuterol 2.5 mg 03/07/22 11:54 Albuterol 2.5 Mg/3 Ml Nebu IH Q4HRT PRN Shortness Of Breath Allopurinol 100 mg 03/08/22 10:00 Allopurinol 100 Mg Tab PO QDAY REID Atorvastatin Calcium 20 mg 03/07/22 22:00 03/07/22 21:48 Atorvastatin 20 Mg Tab PO 20 mg QHS REID Administration Dextrose 50 ml 03/07/22 11:58 Dextrose 50% In Water (25gm) 50 Ml Syringe IV Q30MIN PRN Hypoglycemia Protocol Famotidine 20 mg 03/08/22 10:00 Famotidine 10 Mg Tab PO DAILY REID Hydromorphone HCl 0.5 mg 03/07/22 11:54 Hydromorphone 0.5 Mg/0.5 Ml Inj IV Q3H PRN Pain , Severe (7-10) Sodium Chloride 1,000 mls @ 42 mls/hr 03/07/22 12:00 Nacl 0.9% 1000 Ml IV DIRECT REID Sodium Chloride 500 mls @ 0 mls/hr 03/08/22 08:14 Nacl 0.9% 500 Ml IV 03/08/22 15:00 ONCE NR As Directed Insulin Human Lispro 0 unit 03/07/22 16:30 03/07/22 21:30 Insulin Lispro 100 Unit/Ml SUB-Q Not Given ACHS REID Protocol Ketoconazole 1 applic 03/08/22 10:00 Ketoconazole 2% Cream 15 Gm TP QDAY REID Ondansetron HCl 4 mg 03/07/22 11:54 Ondansetron 4 Mg/2 Ml Inj IV Q8H PRN Nausea And Vomiting Oxycodone/Acetaminophen 1 tab 03/07/22 11:54 Oxycodone /Acetaminophen 5-325mg Tab PO Q6H PRN Pain, Moderate (4-6) Phenytoin 100 mg 03/07/22 22:00 03/07/22 21:48 Phenytoin 100 Mg Capsule.Er PO 100 mg BID REID Administration Sodium Chloride 10 ml 03/07/22 22:00 03/07/22 21:49 Sodium Chloride 0.9% 10 Ml Flush Syringe IV 10 ml BID REID Administration Sodium Chloride 10 ml 03/07/22 11:54 Sodium Chloride 0.9% 10 Ml Flush Syringe IV PRN PRN LINE FLUSH <PAUL CRISTINA - Last Filed: 03/09/22 07:28> Assessment and Plan Assessment and plan: I saw and evaluated the patient. I agree with the findings and the plan of care as documented in the Nurse Practitioner's~note, with the following corrections and additions. Hospitalist Physical - Constitutional Vitals: Temp Pulse Resp BP Pulse Ox 98 F 80 20 120/50 97 03/09/22 02:30 03/09/22 02:30 03/09/22 02:30 03/09/22 02:30 03/09/22 02:30 Results - Labs CBC & Chem 7: 03/09/22 05:31 03/08/22 06:18 Labs: Laboratory Last Values WBC 11.9 K/mm3 (4.5-11.0) H 03/09/22 05:31 RBC 3.22 M/mm3 (3.65-5.03) L 03/09/22 05:31 Hgb 9.7 gm/dl (11.8-15.2) L D 03/09/22 05:31 Hct 29.5 % (35.5-45.6) L D 03/09/22 05:31 MCV 92 fl (84-94) 03/09/22 05:31 MCH 30 pg (28-32) 03/09/22 05:31 MCHC 33 % (32-34) 03/09/22 05:31 RDW 15.6 % (13.2-15.2) H 03/09/22 05:31 Plt Count 216 K/mm3 (140-440) 03/09/22 05:31 Sodium 141 mmol/L (137-145) 03/08/22 06:18 Potassium 4.5 mmol/L (3.6-5.0) 03/08/22 06:18 Chloride 107.1 mmol/L (98-107) H 03/08/22 06:18 Carbon Dioxide 22 mmol/L (22-30) 03/08/22 06:18 Anion Gap 16 mmol/L 03/08/22 06:18 BUN 36 mg/dL (9-20) H 03/08/22 06:18 Creatinine 2.0 mg/dL (0.8-1.3) H 03/08/22 06:18 Estimated GFR 33 ml/min 03/08/22 06:18 BUN/Creatinine Ratio 18 % 03/08/22 06:18 Glucose 95 mg/dL (75-100) 03/08/22 06:18 POC Glucose 79 mg/dL (70-105) 03/08/22 20:56 Hemoglobin A1c < 4.0 % (4-6) L 03/08/22 14:25 Calcium 8.0 mg/dL (8.4-10.2) L 03/08/22 06:18 Blood Type A POSITIVE 03/08/22 14:00 Antibody Screen Negative 03/08/22 14:00 Crossmatch See Detail 03/08/22 14:00 Win/IV: Voiding Method Condom Catheter Active Medications - Current Medications Current Medications: Generic Name Dose Route Start Last Admin Trade Name Freq PRN Reason Stop Dose Admin Acetaminophen 650 mg 03/07/22 11:54 03/08/22 12:24 Acetaminophen 325 Mg Tab PO 650 mg Q4H PRN Administration Pain MILD(1-3)/Fever >100.5/[place]AY Albuterol 2.5 mg 03/07/22 11:54 Albuterol 2.5 Mg/3 Ml Nebu IH Q4HRT PRN Shortness Of Breath Allopurinol 100 mg 03/08/22 10:00 03/08/22 12:22 Allopurinol 100 Mg Tab PO 100 mg QDAY REID Administration Aspirin 81 mg 03/08/22 10:00 03/08/22 12:22 Aspirin 81 Mg Tab Chew PO 81 mg QDAY REID Administration Atorvastatin Calcium 20 mg 03/07/22 22:00 03/08/22 21:47 Atorvastatin 20 Mg Tab PO 20 mg QHS REID Administration Clopidogrel Bisulfate 75 mg 03/08/22 10:00 03/08/22 12:22 Clopidogrel 75 Mg Tab PO 75 mg QDAY REID Administration Dextrose 50 ml 03/07/22 11:58 Dextrose 50% In Water (25gm) 50 Ml Syringe IV Q30MIN PRN Hypoglycemia Protocol Famotidine 20 mg 03/08/22 10:00 03/08/22 12:22 Famotidine 10 Mg Tab PO 20 mg DAILY REID Administration Heparin Sodium (Porcine) 5,000 unit 03/08/22 12:00 03/08/22 22:07 Heparin 5,000 Unit/1 Ml Vial SUB-Q 5,000 unit Q12HR REID Administration Hydromorphone HCl 0.5 mg 03/07/22 11:54 Hydromorphone 0.5 Mg/0.5 Ml Inj IV Q3H PRN Pain , Severe (7-10) Sodium Chloride 1,000 mls @ 42 mls/hr 03/07/22 12:00 Nacl 0.9% 1000 Ml IV DIRECT REID Sodium Chloride 500 mls @ 0 mls/hr 03/08/22 13:33 Nacl 0.9% 500 Ml IV ONCE REID As Directed Insulin Human Lispro 0 unit 03/07/22 16:30 03/08/22 22:20 Insulin Lispro 100 Unit/Ml SUB-Q Not Given ACHS [facility] Protocol Ketoconazole 1 applic 03/08/22 10:00 Ketoconazole 2% Cream 15 Gm TP QDAY REID Metoclopramide HCl 5 mg 03/08/22 09:30 Metoclopramide 10 Mg Tab PO Q6H PRN Nausea And Vomiting Ondansetron HCl 4 mg 03/08/22 09:30 Ondansetron 4 Mg/2 Ml Inj IV Q8H PRN Nausea And Vomiting Oxycodone/Acetaminophen 1 tab 03/07/22 11:54 Oxycodone /Acetaminophen 5-325mg Tab PO Q6H PRN Pain, Moderate (4-6) Phenytoin 100 mg 03/07/22 22:00 03/08/22 21:47 Phenytoin 100 Mg Capsule.Er PO 100 mg BID REID Administration Senna 8.6 mg 03/08/22 10:00 Sennosides 8.6 Mg Tab PO Q12HR PRN Constipation Sodium Chloride 10 ml 03/07/22 22:00 03/08/22 21:47 Sodium Chloride 0.9% 10 Ml Flush Syringe IV 10 ml BID REID Administration Sodium Chloride 10 ml 03/07/22 11:54 Sodium Chloride 0.9% 10 Ml Flush Syringe IV PRN PRN LINE FLUSH Nutrition/Malnutrition Assess - Dietary Evaluation Nutrition/Malnutrition Findings: Nutrition Notes Start: 03/08/22 17:41 Freq: Status: Active Protocol: Document 03/08/22 17:41 AYDEN (Rec: 03/08/22 18:20 AYDEN [id number]) Nutrition Notes 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 Labs/Tests 03/08: Cl 107.1, BUN 36, Crea 2.0, Ca 8.0. Pertinent Medications 03/08: Nutritionally unremarkable. 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 Weight Status Appropriate Subjective/Other Information RD consult for skin risk assessment. Pt is currently on NPO for possible procedure, but apparently has been suspended, and RN will request breakfast for tomorrow, as she informed me over the phone. Pt is on Room Air, O2 saturation @ 96%, according to Physical Assessment History notes. Pt presents a R-thigh skin breakdown and blisters as signs of concern for skin risk at the time, according to Physical Assessment History notes. I will prescribe dietary supplements to support wound healing processes. Pt lives on an Assisted Living Facility, according to Progress notes. Percent of energy/protein needs met: Pt is currently on NPO. When pertinent start prescribed Cardiac Diet provides for energy/protein needs (2,230 Kcal/85 g) during LOS; additionally, Dietary Supplements will support wound healing processes with 190 Kcal and 5 g of protein. 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 Etiology R-Femoral Artery injury. As Evidenced by Signs and Symptoms Pseudoaneurysm/Hematoma, R- thigh skin breakdown and blisters. Is patient on ventilator? No Is Patient Ambulatory and/or Out of Bed No REE-([facility]-confined to bed) 1716.816 Kcal/Kg value to use for calculation 26 Approximate Energy Requirements Using 1887 kcal/Kg Calculation Used for Recommendations Kcal/kg Additional Notes Protein: 1.25-1.5 g/Kg ABW; 91 -110 g/day. Fluids: 1 ml/Kcal, or as per MD. Nutrition Intervention Change Diet Order: When pertinent advance to Cardiac Diet. Add Supplement/Snack (indicate name/kcal Start 28.8 g pkt. Fabio; BID. /protein ) Provides kCal: 190 Provides Protein (gm) 5 Goal #1 Support, through dietary supplementation, wound healing processes during LOS. Goal #2 Adjust the dietary intervention to better serve Pt's needs and clinical conditions during LOS. Follow-Up By: 03/09/22 Additional Comments Continue monitoring food tolerance, %PO intake of meals and ONS, and BM.
[2022-03-08] MEDS ORDERED: FUROSEMIDE 40 MG/4 ML INJ IV NR (08:49)
[2022-03-08] MEDS ORDERED: SODIUM CHLORIDE 0.9% 250ML 250 ML ONE (09:25)
[2022-03-08] MEDS ORDERED: SODIUM CHLORIDE 0.9% 250ML 250 ML IV SCH (09:30)
[2022-03-08] MEDS ORDERED: ONDANSETRON 4 MG/2 ML INJ IV PRN (09:30)
[2022-03-08] MEDS ORDERED: METOCLOPRAMIDE 10 MG TAB PO PRN (09:30)
[2022-03-08] MEDS ORDERED: SENNOSIDES 8.6 MG TAB PO PRN (10:00)
--- NOTE | 2022-03-08 11:01 | Progress Note ---
Assessment and Plan Patient is a 76-year-old male with a past medical history of ischemic cardiomyopathy, hypertension, chronic renal sufficiency, history of CVA, diabetes who presents to the ED for leg pain. Hematoma/pseudoaneurysm Anemia Chronic systolic heart failure Ischemic cardiomyopathy Coronary artery disease Hypertension Diabetes Chronic renal insufficiency History of CVA Echocardiogram 02/23/2022- LV chamber is moderately dilated. There is borderline LV hypertrophy. LV systolic function is severely reduced. The estimated left ventricle ejection fraction is 25-30%. Normal left atrial pressure with Grade I diastolic dysfunction. There is basal septal hypokinesis. There is mid anterior, mid septal, apical septal, apical lateral akinesis. There is normal right ventricular size, wall dimension, and systolic function. The aortic valve leaflet excursion is moderately reduced. There is mild aortic regu rgitation. There is mild aortic valve stenosis. AV Mean gradient: 7.07 mmHg. AV Peak gradient: 11.6 mmHg. There is no mitral regurgitation. There is trace tricuspid regurgitation. There is no pulmonic regurgitation. No left ventricular thrombus noted with LV contrast images Cardiac cath 03/04/2022-left main patent, LAD proximal in-stent restenosis 100% with left to left collaterals feeding into the mid to ostial LAD, ramus has an ostial 99%. Circumflex, proximal patent mid 30%. OM1 patent, mild luminary irregularities, large caliber vessel. OM2 medium caliber was patent with left to right collaterals feeding into the mid to distal RCA. RCA comes to the left coronary cusp, proximal pain, mid 100% in-stent restenosis, severe LV dysfunction Outpatient medications: Aspirin, plavix, Losartan 100mg PO QD, atorvastatin 20mg PO QHs, Coreg 25mg PO BID, HCTZ 12.5mg PO QD Plan: Patient found to have hematoma with blisters on right lower extremity cardiac catheterization site on 03/04/2022 Arterial duplex rule shows a small pseudoaneurysm off the right proximal superficial femoral artery. Vascular following will defer to their recommendations. Continue atorvastatin Will hold off on GDMT due to patient's hypotension at this time Resume aspirin and Plavix Patient currently being transfused PBRCs. Will initiate Lasix 20 mg IV following transfusion to avoid volume overload in patient with chronic systolic heart failure and low EF Following PRBC transfusion we will obtain statin CBC to monitor H&H and transfuse if hemoglobin less than 7 Initiate subcu heparin for DVT prophylaxis Plan of care discussed with patient's daughter who verbalized understanding and acknowledgment Patient seen in conjunction with Dr. Neff who agrees with this plan of care - Patient Problems (1) Renal insufficiency Current Visit: Yes Status: Acute (2) Hematoma Current Visit: Yes Status: Acute (3) Pseudoaneurysm Current Visit: Yes Status: Acute (4) CAD (coronary artery disease) Current Visit: No Status: Chronic (5) Cardiomyopathy Current Visit: No Status: Chronic (6) Diabetes Current Visit: No Status: Chronic (7) HTN (hypertension) Current Visit: No Status: Chronic (8) History of CVA (cerebrovascular accident) Current Visit: No Status: Chronic Subjective Date of service: 03/08/22 Principal diagnosis: Pseudoaneurysm, anemia Interval history: Patient resting in bed in distress Sinus 70s on monitor with no events Objective Vital Signs Temp Pulse Resp BP BP Pulse Ox 03/08/22 08:03 97 03/08/22 04:12 98.4 F 81 18 104/55 98 03/07/22 22:00 96 03/07/22 20:59 98.3 F 83 18 99/36 93 03/07/22 20:11 81 03/07/22 18:20 85 99 03/07/22 18:19 83 111/25 98 03/07/22 17:05 96/51 03/07/22 16:01 72 18 99/54 97 03/07/22 15:01 77 22 104/50 100 03/07/22 14:01 77 22 109/44 97 03/07/22 13:01 79 26 H 115/58 97 03/07/22 12:29 121/60 100 03/07/22 12:13 87 16 115/61 98 03/07/22 11:01 110/55 99 - Physical Examination General: No Apparent Distress HEENT: Positive: PERRL Neck: Positive: trachea midline Cardiac: Positive: Reg Rate and Rhythm Lungs: Positive: Normal Breath Sounds Neuro: Positive: Grossly Intact Abdomen: Positive: Soft Skin: Positive: Other Extremities: Present: upper extr. pulses. Absent: edema - Labs and Meds CBC 03/08/22 Range/Units 06:18 WBC 13.6 H (4.5-11.0) K/mm3 RBC 1.88 L (3.65-5.03) M/mm3 Hgb 5.8 L* (11.8-15.2) gm/dl Hct 18.0 L* (35.5-45.6) % Plt Count 184 (140-440) K/mm3 Comprehensive Metabolic Panel 03/08/22 Range/Units 06:18 Sodium 141 (137-145) mmol/L Potassium 4.5 (3.6-5.0) mmol/L Chloride 107.1 H (98-107) mmol/L Carbon Dioxide 22 (22-30) mmol/L BUN 36 H (9-20) mg/dL Creatinine 2.0 H (0.8-1.3) mg/dL Glucose 95 (75-100) mg/dL Calcium 8.0 L (8.4-10.2) mg/dL - Imaging and Cardiology Echo: report reviewed Cardiac cath: report reviewed - Telemetry EKG Rhythm: Sinus Rhythm
[2022-03-08] MEDS: CLOPIDOGREL 75 MG TAB PO SCH (12:22)
[2022-03-08] MEDS: FAMOTIDINE 10 MG TAB PO SCH (12:22)
[2022-03-08] MEDS: ASPIRIN 81 MG TAB CHEW PO SCH (12:22)
[2022-03-08] MEDS: PHENYTOIN 100 MG CAPSULE.ER PO SCH ×2 (12:22→21:47)
[2022-03-08] MEDS: allopurinoL 100 MG TAB PO SCH (12:22)
[2022-03-08] MEDS: ACETAMINOPHEN 325 MG TAB PO PRN (12:24)
[2022-03-08] MEDS ORDERED: SODIUM CHLORIDE 0.9% 500 ML 500 ML IV SCH (13:33)
[2022-03-08] MEDS ORDERED: FUROSEMIDE 40 MG/4 ML INJ IV SCH (14:01)
--- NOTE | 2022-03-08 14:11 | Vascular Lab Report ---
DUPLEX DOPPLER LOWER EXTREMITY ARTERIAL, RIGHT INDICATION / CLINICAL INFORMATION: reassess pseudoaneurysm. TECHNIQUE: Arterial duplex examination of the right lower extremity performed using B-mode, color sheba w and spectral Doppler assessment. FINDINGS: RIGHT: Common Femoral Artery: PSV 81 cm/sec. Triphasic waveform. Proximal SFA: PSV 66 cm/sec. Triphasic waveform. Mid SFA: PSV 63 cm/sec. Triphasic waveform. Distal SFA: PSV 51 cm/sec. Triphasic waveform. Popliteal Artery: PSV 81 cm/sec. Triphasic waveform. Posterior tibial artery: Not visualized. Dorsalis Pedis Artery: Not visualized. ADDITIONAL FINDINGS: Small pseudoaneurysm is again visualized off of the proximal femoral artery av uring 5 x 6 mm with the neck measuring 2 mm, previously 3 mm. Large groin hematoma is also visualized . RIGHT ANANYA: Not calculated. IMPRESSION: 1. Previously visualized small pseudoaneurysm is stable in size measuring 5 x 6 mm. Large hematoma is also noted in the right groin. Ankle-Brachial Index (ANANYA): - Calcified arteries > 1.4 - Normal = 0.9-1.4 - Mild PAD = 0.7-0.89 - Moderate PAD = 0.51-0.69 - Severe PAD < 0.5 Doppler Waveform: - Triphasic is normal. - Biphasic is abnormal if clear transition from triphasic signal along vascular tree. - Monophasic is abnormal. Scribed by: Davina Landaverde RDMS, RVT, RATNAKS Scribed: 03/08/2022 12:37 PM I have reviewed the images, agree with this report, and edited this report as needed. Signer Name: Bhaskar Bryant MD Signed: 03/08/2022 2:07 PM Workstation Name: [email or web address]
[2022-03-08] MEDS: HEPARIN 5,000 UNIT/1 ML VIAL SUB-Q SCH ×2 (14:50→22:07)
--- NOTE | 2022-03-08 15:01 | Progress Note ---
Assessment and Plan 76-year-old male with recent right and left heart cath for coronary artery disease and aortic stenosis who had the cath performed on 03/04/2022 and this was complicated by right groin hematoma with pseudoaneurysm. The pseudoaneurysm has thrombosed overnight with pressure dressing placement. This was removed. There is only a small residual neck of the pseudoaneurysm measuring 1 to 2 mm at this time. This should hopefully resolve in the next week or 2. Will need wound care for the right thigh. Will need wound care for the skin breakdown and blistering. This will need to be a priority of the care for the next few weeks. Recommend wound care consult with followup at wound care center. It will take a few months for the hematoma to completely resolve. Follow-up in 2 weeks with vascular with arterial ultrasound. Subjective Date of service: 03/08/22 Principal diagnosis: Pseudoaneurysm, anemia Interval history: Overnight pressure dressing and repeat arterial study demonstrated that the pseudoaneurysm has thrombosed and there is only a 1 to 2 mm residual neck without a pseudoaneurysm. This should thrombosed in the next few weeks. Patient reports he is feeling better than yesterday. Objective - Constitutional Vitals: Vital Signs - 12hr 03/08/22 03/08/22 03/08/22 04:12 08:03 12:24 Temperature 98.4 F Pulse Rate 81 Respiratory 18 20 Rate Blood Pressure 104/55 O2 Sat by Pulse 98 97 Oximetry General appearance: Present: mild distress (With palpation of the right thigh) - EENT Eyes: EOM intact ENT: hearing intact - Respiratory Respiratory effort: normal Extremities: normal temperature, normal color, abnormal (Diffuse hematoma with ecchymosis of the right upper thigh. No focal hematoma. Some skin breakdown. Some blistering.) - Gastrointestinal General gastrointestinal: Present: soft, non-tender - Neurologic Neurologic: other (Right upper and lower extremity hemiparesis) - Psychiatric Psychiatric: appropriate mood/affect, cooperative - Labs CBC & Chem 7: 03/08/22 06:18 03/08/22 06:18 Labs: Abnormal lab results 03/08/22 03/08/22 Range/Units 06:18 06:18 WBC 13.6 H (4.5-11.0) K/mm3 RBC 1.88 L (3.65-5.03) M/mm3 Hgb 5.8 L* (11.8-15.2) gm/dl Hct 18.0 L* (35.5-45.6) % MCV 96 H (84-94) fl Chloride 107.1 H (98-107) mmol/L BUN 36 H (9-20) mg/dL Creatinine 2.0 H (0.8-1.3) mg/dL Calcium 8.0 L (8.4-10.2) mg/dL Medications & Allergies - Medications Allergies/Adverse Reactions: Allergies No Known Allergies Allergy (Verified 03/06/22 13:09) Home Medications: Home Medications Medication Instructions Recorded Confirmed Last Taken Type Aspirin EC [Halfprin EC] 81 mg PO DAILY 09/16/13 03/07/22 03/06/22 History Famotidine [Pepcid] 20 mg PO DAILY #30 tablet 09/20/13 03/07/22 03/06/22 Rx AtorvaSTATin [Lipitor] 20 mg PO BID 03/04/22 03/07/22 03/06/22 History Clopidogrel [Plavix] 75 mg PO QDAY 03/04/22 03/07/22 03/06/22 History Glimepiride [Amaryl] 2 mg PO QAM 03/04/22 03/07/22 03/06/22 History Ketoconazole 2% [Nizoral] 1 applicatio TP QDAY 03/04/22 03/07/22 03/06/22 History Losartan [Cozaar] 100 mg PO QDAY 03/04/22 03/07/22 03/06/22 History Phenytoin [Dilantin] 100 mg PO BID 03/04/22 03/07/22 03/06/22 History allopurinoL [Zyloprim] 100 mg PO QDAY 03/04/22 03/07/22 03/06/22 History carvediloL [Coreg] 25 mg PO BID 03/04/22 03/07/22 03/06/22 History hydroCHLOROthiazide 1 cap PO DAILY 03/04/22 03/07/22 03/06/22 History [Hydrochlorothiazide] Sennosides/Docusate Sodium 1 each PO DAILY 7 Days #7 03/06/22 Unknown Rx [Docusate Sodium-Senna Tablet] Simethicone 125 mg PO Q12H 5 Days #10 cap 03/06/22 Unknown Rx Tamsulosin [Flomax] 0.4 mg PO DAILY 03/07/22 03/07/22 03/06/22 History Active Medications: Generic Name Dose Route Start Last Admin Trade Name Freq PRN Reason Stop Dose Admin Acetaminophen 650 mg 03/07/22 11:54 03/08/22 12:24 Acetaminophen 325 Mg Tab PO 650 mg Q4H PRN Administration Pain MILD(1-3)/Fever >100.5/[place] Albuterol 2.5 mg 03/07/22 11:54 Albuterol 2.5 Mg/3 Ml Nebu IH Q4HRT PRN Shortness Of Breath Allopurinol 100 mg 03/08/22 10:00 03/08/22 12:22 Allopurinol 100 Mg Tab PO 100 mg QDAY REID Administration Aspirin 81 mg 03/08/22 10:00 03/08/22 12:22 Aspirin 81 Mg Tab Chew PO 81 mg QDAY REID Administration Atorvastatin Calcium 20 mg 03/07/22 22:00 03/07/22 21:48 Atorvastatin 20 Mg Tab PO 20 mg QHS REID Administration Clopidogrel Bisulfate 75 mg 03/08/22 10:00 03/08/22 12:22 Clopidogrel 75 Mg Tab PO 75 mg QDAY REID Administration Dextrose 50 ml 03/07/22 11:58 Dextrose 50% In Water (25gm) 50 Ml Syringe IV Q30MIN PRN Hypoglycemia Protocol Famotidine 20 mg 03/08/22 10:00 03/08/22 12:22 Famotidine 10 Mg Tab PO 20 mg DAILY REID Administration Furosemide 20 mg 03/08/22 14:01 Furosemide 40 Mg/4 Ml Inj IV 03/08/22 23:00 ONCE REID Heparin Sodium (Porcine) 5,000 unit 03/08/22 12:00 03/08/22 14:50 Heparin 5,000 Unit/1 Ml Vial SUB-Q 5,000 unit Q12HR REID Administration Hydromorphone HCl 0.5 mg 03/07/22 11:54 Hydromorphone 0.5 Mg/0.5 Ml Inj IV Q3H PRN Pain , Severe (7-10) Sodium Chloride 1,000 mls @ 42 mls/hr 03/07/22 12:00 Nacl 0.9% 1000 Ml IV DIRECT REID Sodium Chloride 500 mls @ 0 mls/hr 03/08/22 08:14 Nacl 0.9% 500 Ml IV 03/08/22 15:00 ONCE NR As Directed Sodium Chloride 500 mls @ 0 mls/hr 03/08/22 13:33 Nacl 0.9% 500 Ml IV ONCE REID As Directed Insulin Human Lispro 0 unit 03/07/22 16:30 03/07/22 21:30 Insulin Lispro 100 Unit/Ml SUB-Q Not Given ACHS [facility] Protocol Ketoconazole 1 applic 03/08/22 10:00 Ketoconazole 2% Cream 15 Gm TP QDAY REID Metoclopramide HCl 5 mg 03/08/22 09:30 Metoclopramide 10 Mg Tab PO Q6H PRN Nausea And Vomiting Ondansetron HCl 4 mg 03/08/22 09:30 Ondansetron 4 Mg/2 Ml Inj IV Q8H PRN Nausea And Vomiting Oxycodone/Acetaminophen 1 tab 03/07/22 11:54 Oxycodone /Acetaminophen 5-325mg Tab PO Q6H PRN Pain, Moderate (4-6) Phenytoin 100 mg 03/07/22 22:00 03/08/22 12:22 Phenytoin 100 Mg Capsule.Er PO 100 mg BID REID Administration Senna 8.6 mg 03/08/22 10:00 Sennosides 8.6 Mg Tab PO Q12HR PRN Constipation Sodium Chloride 10 ml 03/07/22 22:00 03/07/22 21:49 Sodium Chloride 0.9% 10 Ml Flush Syringe IV 10 ml BID REID Administration Sodium Chloride 10 ml 03/07/22 11:54 Sodium Chloride 0.9% 10 Ml Flush Syringe IV PRN PRN LINE FLUSH
[2022-03-08] MEDS: INSULIN LISPRO 100 UNIT/ML SUB-Q SCH (22:20)
[2022-03-09] MEDS ORDERED: FUROSEMIDE 40 MG/4 ML INJ IV SCH (02:00)
[2022-03-09 05:51] LABS: Hematocrit 29.5 % (35.5-45.6); Hemoglobin 9.7 gm/dl (11.8-15.2); Mean Corpuscular HGB Conc 33 % (32-34); Mean Corpuscular Volume 92 fl (84-94); Platelet Count 216 K/mm3 (140-440); Red Blood Count 3.22 M/mm3 (3.65-5.03); Red Cell Distribution Width 15.6 % (13.2-15.2)
[2022-03-09] MEDS: INSULIN LISPRO 100 UNIT/ML SUB-Q SCH ×5 (08:09→22:34)
--- NOTE | 2022-03-09 08:24 | Progress Note ---
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 Patient has diminished cognition and provides minimal history. Patient is bedbound and nonambulatory and has a palliative performance score 30% and requires 6/6 assistance with activities of daily living. Patient history taken from EMS staff, ED staff, as well as patient daughter who is at bedside during exam and interview. As per daughter the patient has experienced right leg swelling and redness over the past 2 days with persistent and worsening symptoms over the same timeframe. In the ER the patient was found to be hypotensive with a systolic blood pressure in the 70s. Patient found to have encephalopathy, acute kidney injury, suspected right femoral artery injury, malnutrition, and debility, as well as clinical symptoms consistent with CHF decompensation. Patient admitted to telemetry due to increased risk of worsening symptoms after medical stabilization. Vascular surgery team consulted in ED. Cardiology team consulted in ED. Patient has diminished cognition but has a positive gag reflex and is able to protect his airway without difficulty at the time my evaluation. No reports of fever, chills, chest pain, palpitation, skin rash, recent contact, or known exposure to COVID-19. No prior admission for review. All medication listed at time of admission has been reconciled. Advanced care planning conducted in E. Echocardiogram 02/23/2022- LV chamber is moderately dilated. There is borderli ne LV hypertrophy. LV systolic function is severely reduced. The estimated left ventricle ejection fraction is 25-30%. Normal left atrial pressure with Grade I diastolic dysfunction. There is basal septal hypokinesis. There is mid anterior, mid septal, apical septal, apical lateral akinesis. There is normal right ventricular size, wall dimension, and systolic function. The aortic valve leaflet excursion is moderately reduced. There is mild aortic regurgitation. There is mild aortic valve stenosis. AV Mean gradient: 7.07 mmHg. AV Peak gradient: 11.6 mmHg. There is no mitral regurgitation. There is trace tricuspid regurgitation. There is no pulmonic regurgitation. No left ventricular thrombus noted with LV contrast images Cardiac cath 03/04/2022-left main patent, LAD proximal in-stent restenosis 100% with left to left collaterals feeding into the mid to ostial LAD, ramus has an ostial 99%. Circumflex, proximal patent mid 30%. OM1 patent, mild luminary irregularities, large caliber vessel. OM2 medium caliber was patent with left to right collaterals feeding into the mid to distal RCA. RCA comes to the left coronary cusp, proximal pain, mid 100% in-stent restenosis, severe LV dysfunction Outpatient medications: Aspirin, plavix, Losartan 100mg PO QD, atorvastatin 20mg PO QHs, Coreg 25mg PO BID, HCTZ 12.5mg PO QD 03/08/22-Patient seen at bedside with patient nurse present. He is status post left femoral cardiac cath with hematoma and pressure dressing present. No evidence of bleeding noted on the dressing. Bilateral pedal pulses positive. I reviewed lab, medication record, and vital signs. H&H 5.8 today. Patient is typed and crossed for 2 units packed red blood cells. Blood pressure 94/54. 250 normal saline bolus x1. O2 sat 90 to 95%. Patient on continuous monitor and oxygen 2 L nasal cannula till completion of blood transfusion. I reviewed plan of care with the attending. 03/09: Vascular input is appreciated patient continues on pressure dressing for noted pseudoaneurysm with complicated by right groin hematoma. Patient required transfusion of 2 unit packed red blood cell with appropriate response of hemoglobin today. Lasix was also given to prevent fluid overload considering patient's ejection fraction. Awaiting wound care evaluation as vascular notes that" and for patient to follow-up in 2 weeks with vascular for arterial ultrasound Will need wound care for the right thigh. Will need wound care for the skin breakdown and blistering. This will need to be a priority of the care for the next few weeks. Recommend wound care consult with followup at wound care center. Patient maintains good pulses distal to the site. Renal function had gone up to 2 we will await repeat study today. Anticipate discharge in a.m. following wound care evaluation. And if cleared by cardiology. (1) Injury of femoral artery/pseudoaneurysm with right groin hematoma Current Visit: Yes Status: Acute Plan to address problem: Vascular surgery team consulted, right lower extremity Doppler, apply pressure dressing to right lower extremity, (2) CHF (congestive heart failure)/ischemic cardiomyopathy Current Visit: Yes Status: Acute Qualifiers: Heart failure type: systolic Heart failure chronicity: acute on chronic Qualified Code(s): I50.23 - Acute on chronic systolic (congestive) heart failure Plan to address problem: Strict I's/O, monitor urine output every shift, daily weight, afterload reduction, blood pressure control, supplemental oxygen, cardiology team consulted. (3) ALEXIS (acute kidney injury) secondary to vasomotor nephropathy Current Visit: Yes Status: Acute Plan to address problem: Monitor urine output every shift, daily weight, monitor fluid balance, (4) Seizure disorder Current Visit: Yes Status: Acute Plan to address problem: Continue antiepileptic therapy, supportive care. (5) Metabolic encephalopathy Current Visit: Yes Status: Acute Plan to address problem: Neuro check, seizure precautions, supportive care, aspiration precautions, fall precautions. (6) Malnutrition Current Visit: Yes Status: Acute Qualifiers: Malnutrition type: protein-calorie malnutrition Protein-calorie malnutrition severity: moderate Qualified Code(s): E44.0 - Moderate protein- calorie malnutrition Plan to address problem: Encourage increased protein intake when awake and alert only, dietary supplementation. (7) Vascular dementia/CVA per history Current Visit: Yes Status: Acute Qualifiers: Dementia behavioral disturbance: without behavioral disturbance Qualified Code(s): F01.50 - Vascular dementia without behavioral disturbance Plan to address problem: Verbal prompting, verbal redirection, benzodiazepine therapy as clinically indicated. (8) Cerebral atherosclerosis Current Visit: Yes Status: Acute Plan to address problem: Risk factor reduction, antiplatelet therapy, supportive care. (9) Diabetes melitis Current Visit: Yes Status: Acute Plan to address problem: Consistent carbohydrate diet, Accu-Chek, insulin protocol, hypoglycemia protocol (10) Hyperlipidemia Current Visit: Yes Status: Acute Qualifiers: Hyperlipidemia type: mixed hyperlipidemia Qualified Code(s): E78.2 - Mixed hyperlipidemia Plan to address problem: Statin therapy, supportive care. (11) Hypertension Current Visit: Yes Status: Acute Plan to address problem: Monitor blood pressure occasionally. Patient currently hypotensive. Hold antihypertensive therapy for systolic blood pressure less than equal to 110 mmHg. (12) Acute blood loss anemia (13) DVT prophylaxis Current Visit: Yes Status: Acute Plan to address problem: SCD to bilateral lower extremities while in bed (14) Advance care planning Current Visit: Yes Status: Acute Plan to address problem: Disease education conducted, care plan discussed, diagnoses discussed, prognosis discussed, patient is full code. Patient family acknowledged understanding and agreement with care plan, +30 minutes. (15) Preventative health care Current Visit: Yes Status: Acute Plan to address problem: Patient family counseled regarding home safety, outpatient follow-up with primary care physician for all age and risk factor appropriate screening test. +30 minutes. History Interval history: Patient seen and examined, Hospitalist Physical - Physical exam Narrative exam: VITAL SIGNS: Reviewed. GENERAL: The patient appears normally developed, uncomfortable, vital signs as documented. HEAD: No signs of head trauma. EYES: Pupils are equal. Extraocular motions intact. EARS: Hearing grossly intact. MOUTH: Oropharynx is normal. NECK: No adenopathy, no JVD. CHEST: Chest with clear breath sounds bilaterally. No wheezes, rales, or rhonchi. CARDIAC: Regular rate and rhythm. S1 and S2, without murmurs, gallops, or rubs. VASCULAR: No Edema. Peripheral pulses normal and equal in all extremities. ABDOMEN: Soft, non tender and non distended. No rebound or guarding, and no masses palpated. Bowel Sounds normal. MUSCULOSKELETAL: Left groin hematoma, pressure dressing still in place mild ecchymosis noted, tender to touch positive pedal pulses distal to the area good range of motion of all major joints. Extremities without clubbing, cyanosis or edema. NEUROLOGIC EXAM: Alert and oriented x 3 No focal sensory or strength deficits. Speech normal. Follows commands. PSYCHIATRIC: Mood normal. SKIN: detail exam as documented in skin assessment T - Constitutional Vitals: Temp Pulse Resp BP Pulse Ox 98.6 F 70 18 113/70 99 03/09/22 07:43 03/09/22 07:43 03/09/22 07:43 03/09/22 07:43 03/09/22 07:43 General appearance: Present: mild distress Results - Labs CBC & Chem 7: 03/09/22 05:31 03/09/22 08:57 Labs: Laboratory Last Values WBC 11.9 K/mm3 (4.5-11.0) H 03/09/22 05:31 RBC 3.22 M/mm3 (3.65-5.03) L 03/09/22 05:31 Hgb 9.7 gm/dl (11.8-15.2) L D 03/09/22 05:31 Hct 29.5 % (35.5-45.6) L D 03/09/22 05:31 MCV 92 fl (84-94) 03/09/22 05:31 MCH 30 pg (28-32) 03/09/22 05:31 MCHC 33 % (32-34) 03/09/22 05:31 RDW 15.6 % (13.2-15.2) H 03/09/22 05:31 Plt Count 216 K/mm3 (140-440) 03/09/22 05:31 Sodium 141 mmol/L (137-145) 03/08/22 06:18 Potassium 4.5 mmol/L (3.6-5.0) 03/08/22 06:18 Chloride 107.1 mmol/L (98-107) H 03/08/22 06:18 Carbon Dioxide 22 mmol/L (22-30) 03/08/22 06:18 Anion Gap 16 mmol/L 03/08/22 06:18 BUN 36 mg/dL (9-20) H 03/08/22 06:18 Creatinine 2.0 mg/dL (0.8-1.3) H 03/08/22 06:18 Estimated GFR 33 ml/min 03/08/22 06:18 BUN/Creatinine Ratio 18 % 03/08/22 06:18 Glucose 95 mg/dL (75-100) 03/08/22 06:18 POC Glucose 93 mg/dL (70-105) 03/09/22 07:40 Hemoglobin A1c < 4.0 % (4-6) L 03/08/22 14:25 Calcium 8.0 mg/dL (8.4-10.2) L 03/08/22 06:18 Blood Type A POSITIVE 03/08/22 14:00 Antibody Screen Negative 03/08/22 14:00 Crossmatch See Detail 03/08/22 14:00 Win/IV: Voiding Method Condom Catheter Active Medications - Current Medications Current Medications: Generic Name Dose Route Start Last Admin Trade Name Freq PRN Reason Stop Dose Admin Acetaminophen 650 mg 03/07/22 11:54 03/08/22 12:24 Acetaminophen 325 Mg Tab PO 650 mg Q4H PRN Administration Pain MILD(1-3)/Fever >100.5/[place] Albuterol 2.5 mg 03/07/22 11:54 Albuterol 2.5 Mg/3 Ml Nebu IH Q4HRT PRN Shortness Of Breath Allopurinol 100 mg 03/08/22 10:00 03/08/22 12:22 Allopurinol 100 Mg Tab PO 100 mg QDAY REID Administration Aspirin 81 mg 03/08/22 10:00 03/08/22 12:22 Aspirin 81 Mg Tab Chew PO 81 mg QDAY REID Administration Atorvastatin Calcium 20 mg 03/07/22 22:00 03/08/22 21:47 Atorvastatin 20 Mg Tab PO 20 mg QHS REID Administration Clopidogrel Bisulfate 75 mg 03/08/22 10:00 03/08/22 12:22 Clopidogrel 75 Mg Tab PO 75 mg QDAY REID Administration Dextrose 50 ml 03/07/22 11:58 Dextrose 50% In Water (25gm) 50 Ml Syringe IV Q30MIN PRN Hypoglycemia Protocol Famotidine 20 mg 03/08/22 10:00 03/08/22 12:22 Famotidine 10 Mg Tab PO 20 mg DAILY REID Administration Heparin Sodium (Porcine) 5,000 unit 03/08/22 12:00 03/08/22 22:07 Heparin 5,000 Unit/1 Ml Vial SUB-Q 5,000 unit Q12HR REID Administration Hydromorphone HCl 0.5 mg 03/07/22 11:54 Hydromorphone 0.5 Mg/0.5 Ml Inj IV Q3H PRN Pain , Severe (7-10) Sodium Chloride 1,000 mls @ 42 mls/hr 03/07/22 12:00 Nacl 0.9% 1000 Ml IV DIRECT REID Sodium Chloride 500 mls @ 0 mls/hr 03/08/22 13:33 Nacl 0.9% 500 Ml IV ONCE REID As Directed Insulin Human Lispro 0 unit 03/07/22 16:30 03/08/22 22:20 Insulin Lispro 100 Unit/Ml SUB-Q Not Given ACHS [facility] Protocol Ketoconazole 1 applic 03/08/22 10:00 Ketoconazole 2% Cream 15 Gm TP QDAY REID Metoclopramide HCl 5 mg 03/08/22 09:30 Metoclopramide 10 Mg Tab PO Q6H PRN Nausea And Vomiting Ondansetron HCl 4 mg 03/08/22 09:30 Ondansetron 4 Mg/2 Ml Inj IV Q8H PRN Nausea And Vomiting Oxycodone/Acetaminophen 1 tab 03/07/22 11:54 Oxycodone /Acetaminophen 5-325mg Tab PO Q6H PRN Pain, Moderate (4-6) Phenytoin 100 mg 03/07/22 22:00 03/08/22 21:47 Phenytoin 100 Mg Capsule.Er PO 100 mg BID REID Administration Senna 8.6 mg 03/08/22 10:00 Sennosides 8.6 Mg Tab PO Q12HR PRN Constipation Sodium Chloride 10 ml 03/07/22 22:00 03/08/22 21:47 Sodium Chloride 0.9% 10 Ml Flush Syringe IV 10 ml BID REID Administration Sodium Chloride 10 ml 03/07/22 11:54 Sodium Chloride 0.9% 10 Ml Flush Syringe IV PRN PRN LINE FLUSH Nutrition/Malnutrition Assess - Dietary Evaluation Nutrition/Malnutrition Findings: Nutrition Notes Start: 03/08/22 17:41 Freq: Status: Active Protocol: Document 03/08/22 17:41 AYDEN (Rec: 03/08/22 18:20 AYDEN [id number]) Nutrition Notes Need for Assessment generated from: supervisor blood Initial or Follow up Assessment Current Diagnosis Acute Kidney Injury,Coronary Artery Disease,Diabetes, Hypertension,Malnutrition, Stroke,Hyperlipidemia Other Pertinent Diagnosis Pseudoaneurysm/Hematoma s/p Femoral Artery Injury, Metabolic Encephalopathy Current Diet NPO (since admision). Labs/Tests 03/08: Cl 107.1, BUN 36, Crea 2.0, Ca 8.0. Pertinent Medications 03/08: Nutritionally unremarkable. Height 5 ft 8 in Weight 72.575 kg [place] Body Weight (kg) 70.00 BMI 24.3 Intake Prior to Admission Good Weight change and time frame Pt denies having loss body weight [employer]. Weight Status Appropriate Subjective/Other Information RD consult for skin risk assessment. Pt is currently on NPO for possible procedure, but apparently has been suspended, and RN will request breakfast for tomorrow, as she informed me over the phone. Pt is on Room Air, O2 saturation @ 96%, according to Physical Assessment History notes. Pt presents a R-thigh skin breakdown and blisters as signs of concern for skin risk at the time, according to Physical Assessment History notes. I will prescribe dietary supplements to support wound healing processes. Pt lives on an Assisted Living Facility, according to Progress notes. Percent of energy/protein needs met: Pt is currently on NPO. When pertinent start prescribed Cardiac Diet provides for energy/protein needs (2,230 Kcal/85 g) during LOS; additionally, Dietary Supplements will support wound healing processes with 190 Kcal and 5 g of protein. Burn Absent Trauma Absent GI Symptoms None Food Allergy No Skin Integrity/Comment R-thigh skin breakdown and blisters Current % PO Other Minimum of two criteria No Fluid Accumulation N/A Reduced Clinical Support Nurse Strength N/A (non-severe) Protein-Calorie Malnutrition N\\A #1 Nutrition Diagnosis Increased nutrient needs ( specify in comment below) Comments: Protein to support wound healing processes. Etiology R-Femoral Artery injury. As Evidenced by Signs and Symptoms Pseudoaneurysm/Hematoma, R- thigh skin breakdown and blisters. Is patient on ventilator? No Is Patient Ambulatory and/or Out of Bed No REE-([place]-confined to bed) 1716.816 Kcal/Kg value to use for calculation 26 Approximate Energy Requirements Using 1887 kcal/Kg Calculation Used for Recommendations Kcal/kg Additional Notes Protein: 1.25-1.5 g/Kg ABW; 91 -110 g/day. Fluids: 1 ml/Kcal, or as per MD. Nutrition Intervention Change Diet Order: When pertinent advance to Cardiac Diet. Add Supplement/Snack (indicate name/kcal Start 28.8 g pkt. Fabio; BID. /protein ) Provides kCal: 190 Provides Protein (gm) 5 Goal #1 Support, through dietary supplementation, wound healing processes during LOS. Goal #2 Adjust the dietary intervention to better serve Pt's needs and clinical conditions during LOS. Follow-Up By: 03/09/22 Additional Comments Continue monitoring food tolerance, %PO intake of meals and ONS, and BM.
[2022-03-09 09:42] LABS: Calcium 8.5 mg/dL (8.4-10.2)
--- NOTE | 2022-03-09 10:37 | Progress Note ---
Assessment and Plan Patient is a 76-year-old male with a past medical history of ischemic cardiomyopathy, hypertension, chronic renal sufficiency, history of CVA, diabetes who presents to the ED for leg pain. Hematoma/pseudoaneurysm- Vascualr following Anemia Chronic systolic heart failure Ischemic cardiomyopathy Coronary artery disease Hypertension Diabetes Chronic renal insufficiency History of CVA Echocardiogram 02/23/2022- LV chamber is moderately dilated. There is borderline LV hypertrophy. LV systolic function is severely reduced. The estimated left ventricle ejection fraction is 25-30%. Normal left atrial pressure with Grade I diastolic dysfunction. There is basal septal hypokinesis. There is mid anterior, mid septal, apical septal, apical lateral akinesis. There is normal right ventricular size, wall dimension, and systolic function. The aortic valve leaflet excursion is moderately reduced. There is mild aortic regurgitation. There is mild aortic valve stenosis. AV Mean gradient: 7.07 mmHg. AV Peak gradient: 11.6 mmHg. There is no mitral regurgitation. There is trace tricuspid regurgitation. There is no pulmonic regurgitation. No left ventricular thrombus noted with LV contrast images Cardiac cath 03/04/2022-left main patent, LAD proximal in-stent restenosis 100% w ith left to left collaterals feeding into the mid to ostial LAD, ramus has an ostial 99%. Circumflex, proximal patent mid 30%. OM1 patent, mild luminary irregularities, large caliber vessel. OM2 medium caliber was patent with left to right collaterals feeding into the mid to distal RCA. RCA comes to the left coronary cusp, proximal pain, mid 100% in-stent restenosis, severe LV dysfunction Outpatient medications: Aspirin, plavix, Losartan 100mg PO QD, atorvastatin 20mg PO QHs, Coreg 25mg PO BID, HCTZ 12.5mg PO QD Plan: Patient found to have hematoma with blisters on right lower extremity cardiac catheterization site on 03/04/2022 Arterial duplex rule shows a small pseudoaneurysm off the right proximal superficial femoral artery. Vascular following will defer to their recommendations. Continue atorvastatin Continue aspirin and Plavix Patient recieved 2 units of PRBCs and lasix. H&H improved and patient appears euvolemic on exam Repeat CBC in AM Will hold off on GDMT due to patient's soft BP at this time. Will resume on discharge Patient seen in conjunction with Dr. Mathews who agrees with this plan of care - Patient Problems (1) Renal insufficiency Current Visit: Yes Status: Acute (2) Hematoma Current Visit: Yes Status: Acute (3) Pseudoaneurysm Current Visit: Yes Status: Acute (4) CAD (coronary artery disease) Current Visit: No Status: Chronic (5) Cardiomyopathy Current Visit: No Status: Chronic (6) Diabetes Current Visit: No Status: Chronic (7) HTN (hypertension) Current Visit: No Status: Chronic (8) History of CVA (cerebrovascular accident) Current Visit: No Status: Chronic Subjective Date of service: 03/09/22 Principal diagnosis: Pseudoaneurysm, anemia Interval history: Patient resting in bed in distress Sinus 70s on monitor with few PVCs Objective Vital Signs Temp Pulse Resp BP Pulse Ox 03/09/22 07:43 98.6 F 70 18 113/70 99 03/09/22 05:01 97.2 F L 67 18 131/58 99 03/09/22 02:30 98 F 80 20 120/50 97 03/09/22 02:16 97.8 F 74 18 126/56 100 03/09/22 01:55 98.2 F 74 18 109/60 99 03/09/22 01:46 97.8 F 75 18 119/56 100 03/09/22 01:30 98.2 F 68 18 115/51 100 03/09/22 00:32 98.3 F 79 18 122/56 100 03/09/22 00:00 98.0 F 73 18 114/51 96 03/08/22 23:45 98 F 72 18 110/42 98 03/08/22 23:31 98.2 F 71 18 108/41 99 03/08/22 22:56 97.8 F 75 72 H 112/34 96 03/08/22 22:55 97.8 F 78 18 112/37 98 03/08/22 22:30 98.2 F 75 18 114/43 99 03/08/22 22:00 98.2 F 79 20 104/33 99 03/08/22 21:30 98.0 F 84 18 95/43 100 03/08/22 21:09 98 03/08/22 21:00 98.0 F 80 18 103/31 100 03/08/22 20:30 97.9 F 73 18 97/2 100 03/08/22 20:00 98.4 F 80 18 102/34 100 03/08/22 19:45 98.3 F 81 20 114/53 100 03/08/22 16:01 97.8 F 77 16 99/47 99 03/08/22 14:00 80 97 03/08/22 12:24 20 - Physical Examination General: No Apparent Distress HEENT: Positive: PERRL Neck: Positive: trachea midline Cardiac: Positive: Reg Rate and Rhythm Lungs: Positive: Normal Breath Sounds Neuro: Positive: Grossly Intact Abdomen: Positive: Soft Skin: Positive: Other (Brusing at site of hematoma) Extremities: Present: upper extr. pulses, warm. Absent: edema - Labs and Meds CBC 03/09/22 Range/Units 05:31 WBC 11.9 H (4.5-11.0) K/mm3 RBC 3.22 L (3.65-5.03) M/mm3 Hgb 9.7 L D (11.8-15.2) gm/dl Hct 29.5 L D (35.5-45.6) % Plt Count 216 (140-440) K/mm3 Comprehensive Metabolic Panel 03/09/22 Range/Units 08:57 Sodium 137 (137-145) mmol/L Potassium 4.5 (3.6-5.0) mmol/L Chloride 103.7 (98-107) mmol/L Carbon Dioxide 20 L (22-30) mmol/L BUN 36 H (9-20) mg/dL Creatinine 1.6 H (0.8-1.3) mg/dL Glucose 98 (75-100) mg/dL Calcium 8.5 (8.4-10.2) mg/dL - Imaging and Cardiology Echo: report reviewed Cardiac cath: report reviewed
[2022-03-09] MEDS: ACETAMINOPHEN 325 MG TAB PO PRN (11:22)
[2022-03-09] MEDS: PHENYTOIN 100 MG CAPSULE.ER PO SCH ×2 (11:23→21:40)
[2022-03-09] MEDS: FAMOTIDINE 10 MG TAB PO SCH (11:23)
[2022-03-09] MEDS: CLOPIDOGREL 75 MG TAB PO SCH (11:23)
[2022-03-09] MEDS: ASPIRIN 81 MG TAB CHEW PO SCH (11:23)
[2022-03-09] MEDS: allopurinoL 100 MG TAB PO SCH (11:23)
[2022-03-09] MEDS: HEPARIN 5,000 UNIT/1 ML VIAL SUB-Q SCH ×2 (11:24→21:41)
[2022-03-09] MEDS: KETOCONAZOLE 2% CREAM 15 GM TP SCH (11:26)
[2022-03-09] MEDS: oxyCODONE /ACETAMINOPHEN 5-325MG TAB PO PRN (14:54)
[2022-03-10 08:20] LABS: Hematocrit 29.7 % (35.5-45.6); Hemoglobin 9.7 gm/dl (11.8-15.2); Mean Corpuscular HGB Conc 33 % (32-34); Mean Corpuscular Volume 92 fl (84-94); Platelet Count 262 K/mm3 (140-440); Red Blood Count 3.24 M/mm3 (3.65-5.03); Red Cell Distribution Width 15.3 % (13.2-15.2)
[2022-03-10] MEDS: INSULIN LISPRO 100 UNIT/ML SUB-Q SCH ×9 (09:16→22:02)
--- NOTE | 2022-03-10 10:35 | Progress Note ---
Assessment and Plan Patient is a 76-year-old male with a past medical history of ischemic cardiomyopathy, hypertension, chronic renal sufficiency, history of CVA, diabetes who presents to the ED for leg pain. Hematoma/pseudoaneurysm- Vascualr following Anemia Chronic systolic heart failure Ischemic cardiomyopathy Coronary artery disease Hypertension Diabetes Chronic renal insufficiency History of CVA Echocardiogram 02/23/2022- LV chamber is moderately dilated. There is borderline LV hypertrophy. LV systolic function is severely reduced. The estimated left ventricle ejection fraction is 25-30%. Normal left atrial pressure with Grade I diastolic dysfunction. There is basal septal hypokinesis. There is mid anterior, mid septal, apical septal, apical lateral akinesis. There is normal right ventricular size, wall dimension, and systolic function. The aortic valve leaflet excursion is moderately reduced. There is mild aortic regurgitation. There is mild aortic valve stenosis. AV Mean gradient: 7.07 mmHg. AV Peak gradient: 11.6 mmHg. There is no mitral regurgitation. There is trace tricuspid regurgitation. There is no pulmonic regurgitation. No left ventricular thrombus noted with LV contrast images Cardiac cath 03/04/2022-left main patent, LAD proximal in-stent restenosis 100% w ith left to left collaterals feeding into the mid to ostial LAD, ramus has an ostial 99%. Circumflex, proximal patent mid 30%. OM1 patent, mild luminary irregularities, large caliber vessel. OM2 medium caliber was patent with left to right collaterals feeding into the mid to distal RCA. RCA comes to the left coronary cusp, proximal pain, mid 100% in-stent restenosis, severe LV dysfunction Outpatient medications: Aspirin, plavix, Losartan 100mg PO QD, atorvastatin 20mg PO QHs, Coreg 25mg PO BID, HCTZ 12.5mg PO QD Plan: Patient found to have hematoma with blisters on right lower extremity cardiac catheterization site on 03/04/2022 Arterial duplex rule shows a small pseudoaneurysm off the right proximal superficial femoral artery. Vascular following will defer to their recommendations. Continue atorvastatin Continue aspirin and Plavix H&H stable Patient's BP has improved we will resume outpatient medications losartan 100 mg p.o. daily, carvedilol 25 mg p.o. twice daily, hydrochlorothiazide 12.5 mg p.o. daily Cardiac status otherwise stable Patient has a follow up appointmenr with Aishwarya Kaur, [facility], on 03/17/2022 at 8:30 AM in our [place] [employer] location. Patient seen in conjunction with Dr. Mathews who agrees with this plan of care - Patient Problems (1) Renal insufficiency Current Visit: Yes Status: Acute (2) Hematoma Current Visit: Yes Status: Acute (3) Pseudoaneurysm Current Visit: Yes Status: Acute (4) CAD (coronary artery disease) Current Visit: No Status: Chronic (5) Cardiomyopathy Current Visit: No Status: Chronic (6) Diabetes Current Visit: No Status: Chronic (7) HTN (hypertension) Current Visit: No Status: Chronic (8) History of CVA (cerebrovascular accident) Current Visit: No Status: Chronic Subjective Date of service: 03/10/22 Principal diagnosis: Pseudoaneurysm, anemia Interval history: Patient resting in bed in distress Sinus 70s on monitor with few PVCs Objective Vital Signs Temp Pulse Resp BP BP Pulse Ox 03/10/22 08:18 98.4 F 70 16 133/72 97 03/10/22 07:00 96 03/10/22 04:20 98.1 F 74 18 134/65 97 03/09/22 20:58 98.4 F 84 18 116/57 99 03/09/22 19:45 96 03/09/22 19:42 78 03/09/22 15:33 98.4 F 78 16 102/49 95 03/09/22 14:54 20 03/09/22 13:00 78 03/09/22 11:22 20 03/09/22 11:00 98.0 F 75 16 119/54 96 - Physical Examination General: No Apparent Distress HEENT: Positive: PERRL Neck: Positive: trachea midline Cardiac: Positive: Reg Rate and Rhythm Lungs: Positive: Normal Breath Sounds Neuro: Positive: Grossly Intact Abdomen: Positive: Soft Skin: Positive: Other (Brusing at site of hematoma) Extremities: Present: upper extr. pulses, warm. Absent: edema - Labs and Meds CBC 03/10/22 Range/Units 07:31 WBC 12.1 H (4.5-11.0) K/mm3 RBC 3.24 L (3.65-5.03) M/mm3 Hgb 9.7 L (11.8-15.2) gm/dl Hct 29.7 L (35.5-45.6) % Plt Count 262 (140-440) K/mm3 Comprehensive Metabolic Panel 03/10/22 Range/Units 07:31 Sodium 140 (137-145) mmol/L Potassium 4.2 (3.6-5.0) mmol/L Chloride 105.0 (98-107) mmol/L Carbon Dioxide 23 (22-30) mmol/L BUN 35 H (9-20) mg/dL Creatinine 1.6 H (0.8-1.3) mg/dL Glucose 116 H (75-100) mg/dL Calcium 8.0 L (8.4-10.2) mg/dL - Imaging and Cardiology Echo: report reviewed Cardiac cath: report reviewed - Telemetry EKG Rhythm: Sinus Rhythm - EKG Sinus rhythms and dysrhythmias: sinus rhythm
--- NOTE | 2022-03-10 11:21 | Discharge Summary ---
Providers - Providers Date of Admission: 03/07/22 11:54 Attending physician: PAUL CRISTINA MD 03/06/22 20:33 Consult to Case Management [CONS] Stat Services Needed at Discharge: [employer] Notified:: . Comment:: family did call back, she was on the phone w/the pts facility @ the time gb Additional Physician Instructions: Facility where patient came from unable to take patient back; family not answering phone call too. 03/07/22 11:54 Consult to Physician [CONS] Routine Comment: Consulting Provider: CLARA ZEE Physician Instructions: Reason For Exam: Hematoma 03/07/22 11:57 Consult to Case Management [CONS] Routine Services Needed at Discharge: Other Notified:: in am Additional Physician Instructions: Please send our for SNF/PCH Placement Physical Therapy Evaluation and Treat [CONS] Routine Comment: Reason For Exam: weakness 03/08/22 10:00 Consult to Wound/ET Nurse [CONS] Routine Reason For Exam: right thigh 03/08/22 13:23 Consult to Dietitian/Nutrition [CONS] Routine Physician Instructions: Reason For Exam: Reason for Consult: Poor oral intake 03/08/22 13:32 Occupational Therapy Evaluate and Treat [CONS] Routine Comment: Reason For Exam: Weakness Primary care physician: SUPERVISOR HARD CANDY Hospitalization Reason for admission: Right leg swelling Condition: Stable Hospital course: 76 YO Male Assisted Living Facility 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 Patient has diminished cognition and provides minimal history. Patient is bedbound and nonambulatory and has a palliative performance score 30% and requires 6/6 assistance with activities of daily living. Patient history taken from EMS staff, ED staff, as well as patient daughter who is at bedside during exam and interview. As per daughter the patient has experienced right leg swelling and redness over the past 2 days with persistent and worsening symptoms over the same timeframe. In the ER the patient was found to be hypotensive with a systolic blood pressure in the 70s. Patient found to have encephalopathy, acute kidney injury, suspected right femoral artery injury, malnutrition, and debility, as well as clinical symptoms consistent with CHF decompensation. Patient admitted to telemetry due to increased risk of worsening symptoms after medical stabilization. Vascular surgery team consulted in ED. Cardiology team consulted in ED. Patient has diminished cognition but has a positive gag reflex and is able to protect his airway without difficulty at the time my evaluation. No reports of fever, chills, chest pain, palpitation, skin rash, recent contact, or known exposure to COVID-19. No prior admission for review. All medication listed at time of admission has been reconciled. Advanced care planning conducted in E. Echocardiogram 02/23/2022- LV chamber is moderately dilated. There is borderline LV hypertrophy. LV systolic function is severely reduced. The estimated left ventricle ejection fraction is 25-30%. Normal left atrial pressure with Grade I diastolic dysfunction. There is basal septal hypokinesis. There is mid anterior, mid septal, apical septal, apical lateral akinesis. There is normal right ventricular size, wall dimension, and systolic function. The aortic valve leaflet excursion is moderately reduced. There is mild aortic regu rgitation. There is mild aortic valve stenosis. AV Mean gradient: 7.07 mmHg. AV Peak gradient: 11.6 mmHg. There is no mitral regurgitation. There is trace tricuspid regurgitation. There is no pulmonic regurgitation. No left ventricular thrombus noted with LV contrast images Cardiac cath 03/04/2022-left main patent, LAD proximal in-stent restenosis 100% with left to left collaterals feeding into the mid to ostial LAD, ramus has an ostial 99%. Circumflex, proximal patent mid 30%. OM1 patent, mild luminary irregularities, large caliber vessel. OM2 medium caliber was patent with left to right collaterals feeding into the mid to distal RCA. RCA comes to the left coronary cusp, proximal pain, mid 100% in-stent restenosis, severe LV dysfunction Outpatient medications: Aspirin, plavix, Losartan 100mg PO QD, atorvastatin 20mg PO QHs, Coreg 25mg PO BID, HCTZ 12.5mg PO QD 03/08/22-Patient seen at bedside with patient nurse present. He is status post left femoral cardiac cath with hematoma and pressure dressing present. No evidence of bleeding noted on the dressing. Bilateral pedal pulses positive. I reviewed lab, medication record, and vital signs. H&H 5.8 today. Patient is typed and crossed for 2 units packed red blood cells. Blood pressure 94/54. 250 normal saline bolus x1. O2 sat 90 to 95%. Patient on continuous monitor and oxygen 2 L nasal cannula till completion of blood transfusion. I reviewed plan of care with the attending. 03/09: Vascular input is appreciated patient continues on pressure dressing for noted pseudoaneurysm with complicated by right groin hematoma. Patient required transfusion of 2 unit packed red blood cell with appropriate response of hemoglobin today. Lasix was also given to prevent fluid overload considering patient's ejection fraction. Awaiting wound care evaluation as vascular notes that" and for patient to follow-up in 2 weeks with vascular for arterial ultrasound Will need wound care for the right thigh. Will need wound care for the skin breakdown and blistering. This will need to be a priority of the care for the next few weeks. Recommend wound care consult with followup at wound care center. Patient maintains good pulses distal to the site. Renal function had gone up to 2 we will await repeat study today. Anticipate discharge in a.m. following wound care evaluation. And if cleared by cardiology. 03/10: Patient seen and examined pulses dopplered at the right posterior tibialis and dorsalis pedis are present.. Patient cleared for discharge to follow-up with cardiology and vascular outpatient also recommended to follow-up at the wound clinic. This has been stressed to the family. Information provided. Hemoglobin is stable posttransfusion and renal function is improved back to baseline. Discharge pending placement. called and update (1) Injury of femoral artery/pseudoaneurysm with right groin hematoma Current Visit: Yes Status: Acute Plan to address problem: Vascular surgery team consulted, right lower extremity Doppler, apply pressure dressing to right lower extremity, (2) CHF (congestive heart failure)/ischemic cardiomyopathy Current Visit: Yes Status: Acute Qualifiers: Heart failure type: systolic Heart failure chronicity: acute on chronic Qualified Code(s): I50.23 - Acute on chronic systolic (congestive) heart failure Plan to address problem: Strict I's/O, monitor urine output every shift, daily weight, afterload reduction, blood pressure control, supplemental oxygen, cardiology team consulted. (3) ALEXIS (acute kidney injury) secondary to vasomotor nephropathy Current Visit: Yes Status: Acute Plan to address problem: Monitor urine output every shift, daily weight, monitor fluid balance, (4) Seizure disorder Current Visit: Yes Status: Acute Plan to address problem: Continue antiepileptic therapy, supportive care. (5) Metabolic encephalopathy Current Visit: Yes Status: Acute Plan to address problem: Neuro check, seizure precautions, supportive care, aspiration precautions, fall precautions. (6) Malnutrition Current Visit: Yes Status: Acute Qualifiers: Malnutrition type: protein-calorie malnutrition Protein-calorie malnutrition severity: moderate Qualified Code(s): E44.0 - Moderate protein- calorie malnutrition Plan to address problem: Encourage increased protein intake when awake and alert only, dietary supplementation. (7) Vascular dementia/CVA per history Current Visit: Yes Status: Acute Qualifiers: Dementia behavioral disturbance: without behavioral disturbance Qualified Code(s): F01.50 - Vascular dementia without behavioral disturbance Plan to address problem: Verbal prompting, verbal redirection, benzodiazepine therapy as clinically indicated. (8) Cerebral atherosclerosis Current Visit: Yes Status: Acute Plan to address problem: Risk factor reduction, antiplatelet therapy, supportive care. (9) Diabetes melitis Current Visit: Yes Status: Acute Plan to address problem: Consistent carbohydrate diet, Accu-Chek, insulin protocol, hypoglycemia protocol (10) Hyperlipidemia Current Visit: Yes Status: Acute Qualifiers: Hyperlipidemia type: mixed hyperlipidemia Qualified Code(s): E78.2 - Mixed hyperlipidemia Plan to address problem: Statin therapy, supportive care. (11) Hypertension Current Visit: Yes Status: Acute Plan to address problem: Monitor blood pressure occasionally. Patient currently hypotensive. Hold antihypertensive therapy for systolic blood pressure less than equal to 110 mmHg. (12) Acute blood loss anemia (13) DVT prophylaxis Current Visit: Yes Status: Acute Plan to address problem: SCD to bilateral lower extremities while in bed (14) Advance care planning Current Visit: Yes Status: Acute Plan to address problem: Disease education conducted, care plan discussed, diagnoses discussed, prognosis discussed, patient is full code. Patient family acknowledged understanding and agreement with care plan, +30 minutes. (15) Preventative health care Current Visit: Yes Status: Acute Plan to address problem: Patient family counseled regarding home safety, outpatient follow-up with primary care physician for all age and risk factor appropriate screening test. +30 minutes. Disposition: [facility] Final Discharge Diagnosis (Prints w/discharge instructions): Injury of femoral artery/pseudoaneurysm with right groin hematoma Time spent for discharge: 35-minute Core Measure Documentation - Palliative Care Palliative Care/ Comfort Measures: Not Applicable - Core Measures Any of the following diagnoses?: none Exam - Physical Exam Narrative exam: VITAL SIGNS: Reviewed. GENERAL: The patient appears normally developed, uncomfortable, vital signs as documented. HEAD: No signs of head trauma. EYES: Pupils are equal. Extraocular motions intact. EARS: Hearing grossly intact. MOUTH: Oropharynx is normal. NECK: No adenopathy, no JVD. CHEST: Chest with clear breath sounds bilaterally. No wheezes, rales, or rhonchi. CARDIAC: Regular rate and rhythm. S1 and S2, without murmurs, gallops, or rubs. VASCULAR: No Edema. Peripheral pulses normal and equal in all extremities. ABDOMEN: Soft, non tender and non distended. No rebound or guarding, and no masses palpated. Bowel Sounds normal. MUSCULOSKELETAL: Left groin hematoma, pressure dressing still in place mild ecchymosis noted, tender to touch positive pedal pulses distal to the area good range of motion of all major joints. Extremities without clubbing, cyanosis or edema. NEUROLOGIC EXAM: Alert and oriented x 3 No focal sensory or strength deficits. Speech normal. Follows commands. PSYCHIATRIC: Mood normal. SKIN: detail exam as documented in skin assessment T - Constitutional Vitals: Temp Pulse Resp BP Pulse Ox 98.0 F 76 18 136/64 100 03/10/22 11:01 03/10/22 11:01 03/10/22 11:01 03/10/22 11:01 03/10/22 11:01 Plan Activity: advance as tolerated, fall precautions Diet: low fat Special Instructions: record daily weights, record daily BP diary Plan of Treatment: Continue aspirin and Plavix. Follow-up with vascular for ultrasound. And follow-up with cardiology. Follow up with: PRIMARY MD MARIANA [Primary Care Provider] - 3-5 Days CLARA ZEE MD [Staff Physician] - 03/17/22 8:30 am PIPPA TYSON MD [Staff Physician] - 10 Days Prescriptions: Sennosides/Docusate Sodium [Docusate Sodium-Senna Tablet] 1 each PO DAILY 7 Days #7 oxyCODONE /ACETAMINOPHEN [Percocet 5/325 mg] 1 tab PO Q6H PRN #10 tablet PRN Reason: Pain, Moderate (4-6) Simethicone 125 mg PO Q12H 5 Days #10 cap
[2022-03-10] MEDS: LOSARTAN 50 MG TAB PO SCH (13:02)
[2022-03-10] MEDS: PHENYTOIN 100 MG CAPSULE.ER PO SCH ×2 (13:04→21:36)
[2022-03-10] MEDS: hydroCHLOROthiazide 12.5 MG CAP PO SCH (13:04)
[2022-03-10] MEDS: ASPIRIN 81 MG TAB CHEW PO SCH (13:04)
[2022-03-10] MEDS: CLOPIDOGREL 75 MG TAB PO SCH (13:04)
[2022-03-10] MEDS: FAMOTIDINE 10 MG TAB PO SCH (13:06)
[2022-03-10] MEDS: HEPARIN 5,000 UNIT/1 ML VIAL SUB-Q SCH ×2 (13:13→21:39)
[2022-03-10] MEDS: allopurinoL 100 MG TAB PO SCH (13:26)
[2022-03-10] MEDS: KETOCONAZOLE 2% CREAM 15 GM TP SCH ×2 (17:50→17:51)
[2022-03-10] MEDS: carvediloL 25 MG TAB PO SCH (21:38)
[2022-03-11] MEDS: INSULIN LISPRO 100 UNIT/ML SUB-Q SCH ×4 (08:25→23:47)
[2022-03-11] MEDS: ASPIRIN 81 MG TAB CHEW PO SCH (09:18)
[2022-03-11] MEDS: hydroCHLOROthiazide 12.5 MG CAP PO SCH (09:19)
[2022-03-11] MEDS: PHENYTOIN 100 MG CAPSULE.ER PO SCH ×2 (09:19→21:34)
[2022-03-11] MEDS: allopurinoL 100 MG TAB PO SCH (09:19)
[2022-03-11] MEDS: HEPARIN 5,000 UNIT/1 ML VIAL SUB-Q SCH ×2 (09:19→21:34)
[2022-03-11] MEDS: CLOPIDOGREL 75 MG TAB PO SCH (09:19)
[2022-03-11] MEDS: KETOCONAZOLE 2% CREAM 15 GM TP SCH (09:24)
[2022-03-11] MEDS: carvediloL 25 MG TAB PO SCH ×2 (09:40→21:34)
[2022-03-11] MEDS: FAMOTIDINE 10 MG TAB PO SCH ×2 (09:40→11:05)
[2022-03-11 09:53] LABS: Basophils # (Auto) 0.1 K/mm3 (0.0-0.1); Basophils % (Auto) 0.5 % (0.0-1.8); Eosinophils # (Auto) 0.5 K/mm3 (0.0-0.4); Eosinophils % (Auto) 4.7 % (0.0-4.3); Hematocrit 30.5 % (35.5-45.6); Lymphocytes # (Auto) 1.2 K/mm3 (1.2-5.4); Mean Corpuscular HGB Conc 33 % (32-34); Mean Corpuscular Volume 93 fl (84-94); Monocytes % (Auto) 9.1 % (0.0-7.3); Platelet Count 307 K/mm3 (140-440); Red Blood Count 3.27 M/mm3 (3.65-5.03); Red Cell Distribution Width 15.1 % (13.2-15.2)
[2022-03-11 10:04] LABS: Calcium 7.9 mg/dL (8.4-10.2)
--- NOTE | 2022-03-11 10:53 | Progress Note ---
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 Patient has diminished cognition and provides minimal history. Patient is bedbound and nonambulatory and has a palliative performance score 30% and requires 6/6 assistance with activities of daily living. Patient history taken from EMS staff, ED staff, as well as patient daughter who is at bedside during exam and interview. As per daughter the patient has experienced right leg swelling and redness over the past 2 days with persistent and worsening symptoms over the same timeframe. In the ER the patient was found to be hypotensive with a systolic blood pressure in the 70s. Patient found to have encephalopathy, acute kidney injury, suspected right femoral artery injury, malnutrition, and debility, as well as clinical symptoms consistent with CHF decompensation. Patient admitted to telemetry due to increased risk of worsening symptoms after medical stabilization. Vascular surgery team consulted in ED. Cardiology team consulted in ED. Patient has diminished cognition but has a positive gag reflex and is able to protect his airway without difficulty at the time my evaluation. No reports of fever, chills, chest pain, palpitation, skin rash, recent contact, or known exposure to COVID-19. No prior admission for review. All medication listed at time of admission has been reconciled. Advanced care planning conducted in E. Echocardiogram 02/23/2022- LV chamber is moderately dilated. There is borderli ne LV hypertrophy. LV systolic function is severely reduced. The estimated left ventricle ejection fraction is 25-30%. Normal left atrial pressure with Grade I diastolic dysfunction. There is basal septal hypokinesis. There is mid anterior, mid septal, apical septal, apical lateral akinesis. There is normal right ventricular size, wall dimension, and systolic function. The aortic valve leaflet excursion is moderately reduced. There is mild aortic regurgitation. There is mild aortic valve stenosis. AV Mean gradient: 7.07 mmHg. AV Peak gradient: 11.6 mmHg. There is no mitral regurgitation. There is trace tricuspid regurgitation. There is no pulmonic regurgitation. No left ventricular thrombus noted with LV contrast images Cardiac cath 03/04/2022-left main patent, LAD proximal in-stent restenosis 100% with left to left collaterals feeding into the mid to ostial LAD, ramus has an ostial 99%. Circumflex, proximal patent mid 30%. OM1 patent, mild luminary irregularities, large caliber vessel. OM2 medium caliber was patent with left to right collaterals feeding into the mid to distal RCA. RCA comes to the left coronary cusp, proximal pain, mid 100% in-stent restenosis, severe LV dysfunction Outpatient medications: Aspirin, plavix, Losartan 100mg PO QD, atorvastatin 20mg PO QHs, Coreg 25mg PO BID, HCTZ 12.5mg PO QD 03/08/22-Patient seen at bedside with patient nurse present. He is status post left femoral cardiac cath with hematoma and pressure dressing present. No evidence of bleeding noted on the dressing. Bilateral pedal pulses positive. I reviewed lab, medication record, and vital signs. H&H 5.8 today. Patient is typed and crossed for 2 units packed red blood cells. Blood pressure 94/54. 250 normal saline bolus x1. O2 sat 90 to 95%. Patient on continuous monitor and oxygen 2 L nasal cannula till completion of blood transfusion. I reviewed plan of care with the attending. 03/09: Vascular input is appreciated patient continues on pressure dressing for noted pseudoaneurysm with complicated by right groin hematoma. Patient required transfusion of 2 unit packed red blood cell with appropriate response of hemoglobin today. Lasix was also given to prevent fluid overload considering patient's ejection fraction. Awaiting wound care evaluation as vascular notes that" and for patient to follow-up in 2 weeks with vascular for arterial ultrasound Will need wound care for the right thigh. Will need wound care for the skin breakdown and blistering. This will need to be a priority of the care for the next few weeks. Recommend wound care consult with followup at wound care center. Patient maintains good pulses distal to the site. Renal function had gone up to 2 we will await repeat study today. Anticipate discharge in a.m. following wound care evaluation. And if cleared by cardiology. 03/11: Patient seen and examined, no new complaints, awaiting placement. Continue current management. creatinine improving some (1) Injury of femoral artery/pseudoaneurysm with right groin hematoma Current Visit: Yes Status: Acute Plan to address problem: Vascular surgery team consulted, right lower extremity Doppler, apply pressure dressing to right lower extremity, (2) CHF (congestive heart failure)/ischemic cardiomyopathy Current Visit: Yes Status: Acute Qualifiers: Heart failure type: systolic Heart failure chronicity: acute on chronic Qualified Code(s): I50.23 - Acute on chronic systolic (congestive) heart failure Plan to address problem: Strict I's/O, monitor urine output every shift, daily weight, afterload reduction, blood pressure control, supplemental oxygen, cardiology team consulted. (3) ALEXIS (acute kidney injury) secondary to vasomotor nephropathy Current Visit: Yes Status: Acute Plan to address problem: Monitor urine output every shift, daily weight, monitor fluid balance, (4) Seizure disorder Current Visit: Yes Status: Acute Plan to address problem: Continue antiepileptic therapy, supportive care. (5) Metabolic encephalopathy Current Visit: Yes Status: Acute Plan to address problem: Neuro check, seizure precautions, supportive care, aspiration precautions, fall precautions. (6) Malnutrition Current Visit: Yes Status: Acute Qualifiers: Malnutrition type: protein-calorie malnutrition Protein-calorie malnutrition severity: moderate Qualified Code(s): E44.0 - Moderate protein- calorie malnutrition Plan to address problem: Encourage increased protein intake when awake and alert only, dietary supplementation. (7) Vascular dementia/CVA per history Current Visit: Yes Status: Acute Qualifiers: Dementia behavioral disturbance: without behavioral disturbance Qualified Code(s): F01.50 - Vascular dementia without behavioral disturbance Plan to address problem: Verbal prompting, verbal redirection, benzodiazepine therapy as clinically indicated. (8) Cerebral atherosclerosis Current Visit: Yes Status: Acute Plan to address problem: Risk factor reduction, antiplatelet therapy, supportive care. (9) Diabetes melitis Current Visit: Yes Status: Acute Plan to address problem: Consistent carbohydrate diet, Accu-Chek, insulin protocol, hypoglycemia protocol (10) Hyperlipidemia Current Visit: Yes Status: Acute Qualifiers: Hyperlipidemia type: mixed hyperlipidemia Qualified Code(s): E78.2 - Mixed hyperlipidemia Plan to address problem: Statin therapy, supportive care. (11) Hypertension Current Visit: Yes Status: Acute Plan to address problem: Monitor blood pressure occasionally. Patient currently hypotensive. Hold antihypertensive therapy for systolic blood pressure less than equal to 110 mmHg. (12) Acute blood loss anemia (13) DVT prophylaxis Current Visit: Yes Status: Acute Plan to address problem: SCD to bilateral lower extremities while in bed (14) Advance care planning Current Visit: Yes Status: Acute Plan to address problem: Disease education conducted, care plan discussed, diagnoses discussed, prognosis discussed, patient is full code. Patient family acknowledged understanding and agreement with care plan, +30 minutes. (15) Preventative health care Current Visit: Yes Status: Acute Plan to address problem: Patient family counseled regarding home safety, outpatient follow-up with primary care physician for all age and risk factor appropriate screening test. +30 minutes. History Interval history: Patient seen and examined, no new complaints. Bilateral lower extremities warm to the touch. Hospitalist Physical - Physical exam Narrative exam: VITAL SIGNS: Reviewed. GENERAL: The patient appears normally developed, uncomfortable, vital signs as documented. HEAD: No signs of head trauma. EYES: Pupils are equal. Extraocular motions intact. EARS: Hearing grossly intact. MOUTH: Oropharynx is normal. NECK: No adenopathy, no JVD. CHEST: Chest with clear breath sounds bilaterally. No wheezes, rales, or rhonchi. CARDIAC: Regular rate and rhythm. S1 and S2, without murmurs, gallops, or rubs. VASCULAR: No Edema. Peripheral pulses normal and equal in all extremities. ABDOMEN: Soft, non tender and non distended. No rebound or guarding, and no masses palpated. Bowel Sounds normal. MUSCULOSKELETAL: Left groin hematoma, pressure dressing still in place mild ecchymosis noted, tender to touch positive pedal pulses distal to the area good range of motion of all major joints. Extremities without clubbing, cyanosis or edema. NEUROLOGIC EXAM: Alert and oriented x 3 No focal sensory or strength deficits. Speech normal. Follows commands. PSYCHIATRIC: Mood normal. SKIN: detail exam as documented in skin assessment T - Constitutional Vitals: Temp Pulse Resp BP Pulse Ox 98.2 F 82 18 127/61 96 03/11/22 07:00 03/11/22 09:40 03/11/22 07:00 03/11/22 09:40 03/11/22 07:00 General appearance: Present: mild distress Results - Labs CBC & Chem 7: 03/11/22 09:19 03/11/22 09:19 Labs: Laboratory Last Values WBC 10.9 K/mm3 (4.5-11.0) 03/11/22 09:19 RBC 3.27 M/mm3 (3.65-5.03) L 03/11/22 09:19 Hgb 10.0 gm/dl (11.8-15.2) L 03/11/22 09:19 Hct 30.5 % (35.5-45.6) L 03/11/22 09:19 MCV 93 fl (84-94) 03/11/22 09:19 MCH 31 pg (28-32) 03/11/22 09:19 MCHC 33 % (32-34) 03/11/22 09:19 RDW 15.1 % (13.2-15.2) 03/11/22 09:19 Plt Count 307 K/mm3 (140-440) 03/11/22 09:19 Lymph % (Auto) 11.0 % (13.4-35.0) L 03/11/22 09:19 [place] % (Auto) 9.1 % (0.0-7.3) H 03/11/22 09:19 Eos % (Auto) 4.7 % (0.0-4.3) H 03/11/22 09:19 Baso % (Auto) 0.5 % (0.0-1.8) 03/11/22 09:19 Lymph # (Auto) 1.2 K/mm3 (1.2-5.4) 03/11/22 09:19 [place] # (Auto) 1.0 K/mm3 (0.0-0.8) H 03/11/22 09:19 Eos # (Auto) 0.5 K/mm3 (0.0-0.4) H 03/11/22 09:19 Baso # (Auto) 0.1 K/mm3 (0.0-0.1) 03/11/22 09:19 Seg Neutrophils % 74.7 % (40.0-70.0) H 03/11/22 09:19 Seg Neutrophils # 8.1 K/mm3 (1.8-7.7) H 03/11/22 09:19 Sodium 139 mmol/L (137-145) 03/11/22 09:19 Potassium 4.3 mmol/L (3.6-5.0) 03/11/22 09:19 Chloride 105.5 mmol/L (98-107) 03/11/22 09:19 Carbon Dioxide 23 mmol/L (22-30) 03/11/22 09:19 Anion Gap 15 mmol/L 03/11/22 09:19 BUN 30 mg/dL (9-20) H 03/11/22 09:19 Creatinine 1.5 mg/dL (0.8-1.3) H 03/11/22 09:19 Estimated GFR 45 ml/min 03/11/22 09:19 BUN/Creatinine Ratio 20 % 03/11/22 09:19 Glucose 124 mg/dL (75-100) H 03/11/22 09:19 POC Glucose 141 mg/dL (70-105) H 03/11/22 08:09 Hemoglobin A1c < 4.0 % (4-6) L 03/08/22 14:25 Calcium 7.9 mg/dL (8.4-10.2) L 03/11/22 09:19 Blood Type A POSITIVE 03/08/22 14:00 Antibody Screen Negative 03/08/22 14:00 Crossmatch See Detail 03/08/22 14:00 Win/IV: Voiding Method Condom Catheter Active Medications - Current Medications Current Medications: Generic Name Dose Route Start Last Admin Trade Name Freq PRN Reason Stop Dose Admin Acetaminophen 650 mg 03/07/22 11:54 03/09/22 11:22 Acetaminophen 325 Mg Tab PO 650 mg Q4H PRN Administration Pain MILD(1-3)/Fever >100.5/[place] Albuterol 2.5 mg 03/07/22 11:54 Albuterol 2.5 Mg/3 Ml Nebu IH Q4HRT PRN Shortness Of Breath Allopurinol 100 mg 03/08/22 10:00 03/11/22 09:19 Allopurinol 100 Mg Tab PO 100 mg QDAY REID Administration Aspirin 81 mg 03/08/22 10:00 03/11/22 09:18 Aspirin 81 Mg Tab Chew PO 81 mg QDAY REID Administration Atorvastatin Calcium 20 mg 03/07/22 22:00 03/10/22 21:35 Atorvastatin 20 Mg Tab PO 20 mg QHS REID Administration Carvedilol 25 mg 03/10/22 22:00 03/11/22 09:40 Carvedilol 25 Mg Tab PO 25 mg BID REID Administration Clopidogrel Bisulfate 75 mg 03/08/22 10:00 03/11/22 09:19 Clopidogrel 75 Mg Tab PO 75 mg QDAY REID Administration Dextrose 50 ml 03/07/22 11:58 Dextrose 50% In Water (25gm) 50 Ml Syringe IV Q30MIN PRN Hypoglycemia Protocol Famotidine 20 mg 03/08/22 10:00 03/11/22 09:40 Famotidine 10 Mg Tab PO Not Given DAILY [facility] Heparin Sodium (Porcine) 5,000 unit 03/08/22 12:00 03/11/22 09:19 Heparin 5,000 Unit/1 Ml Vial SUB-Q 5,000 unit Q12HR REID Administration Hydrochlorothiazide 12.5 mg 03/10/22 11:00 03/11/22 09:19 Hydrochlorothiazide 12.5 Mg Cap PO 12.5 mg QDAY REID Administration Hydromorphone HCl 0.5 mg 03/07/22 11:54 03/10/22 11:58 Hydromorphone 0.5 Mg/0.5 Ml Inj IV 0.5 mg Q3H PRN Administration Pain , Severe (7-10) Sodium Chloride 1,000 mls @ 42 mls/hr 03/07/22 12:00 Nacl 0.9% 1000 Ml IV DIRECT [facility] Insulin Human Lispro 0 unit 03/07/22 16:30 03/11/22 08:25 Insulin Lispro 100 Unit/Ml SUB-Q Not Given ACHS [facility] Protocol Ketoconazole 1 applic 03/08/22 10:00 03/11/22 09:24 Ketoconazole 2% Cream 15 Gm TP 1 applic QDAY REID Administration Losartan Potassium 100 mg 03/10/22 11:00 03/10/22 13:02 Losartan 50 Mg Tab PO 100 mg QDAY REID Administration Metoclopramide HCl 5 mg 03/08/22 09:30 Metoclopramide 10 Mg Tab PO Q6H PRN Nausea And Vomiting Ondansetron HCl 4 mg 03/08/22 09:30 Ondansetron 4 Mg/2 Ml Inj IV Q8H PRN Nausea And Vomiting Oxycodone/Acetaminophen 1 tab 03/07/22 11:54 03/09/22 14:54 Oxycodone /Acetaminophen 5-325mg Tab PO 1 tab Q6H PRN Administration Pain, Moderate (4-6) Phenytoin 100 mg 03/07/22 22:00 03/11/22 09:19 Phenytoin 100 Mg Capsule.Er PO 100 mg BID REID Administration Senna 8.6 mg 03/08/22 10:00 Sennosides 8.6 Mg Tab PO Q12HR PRN Constipation Sodium Chloride 10 ml 07/18/22 22:00 03/11/22 09:19 Sodium Chloride 0.9% 10 Ml Flush Syringe IV 10 ml BID REID Administration Sodium Chloride 10 ml 03/07/22 11:54 Sodium Chloride 0.9% 10 Ml Flush Syringe IV PRN PRN LINE FLUSH Nutrition/Malnutrition Assess - Dietary Evaluation Nutrition/Malnutrition Findings: Nutrition Notes Start: 03/08/22 17:41 Freq: Status: Active Protocol: Document 03/09/22 14:00 AYDEN (Rec: 03/09/22 14:09 AYDEN [email or web address]) Nutrition Notes Initial or Follow up Brief Note Current Diagnosis Acute Kidney Injury,Coronary Artery Disease,Diabetes, Hypertension,Malnutrition, Stroke,Hyperlipidemia Other Pertinent Diagnosis Pseudoaneurysm/Hematoma s/p Femoral Artery Injury, Metabolic Encephalopathy Current Diet Cardiac/Consistent Carbohydrates Diet+D Suppl ( since L 03/09). Height 5 ft 8 in Weight 72.575 kg [place] Body Weight (kg) 70.00 BMI 24.3 Weight change and time frame No body weight change reported in 1 day. Weight Status Appropriate Subjective/Other Information RD consult for routine F/U on dietary advancement. Pt's PO intake of meals has been Poor (25%) but well tolerated, according to ADL notes. Pt is on Room Air, O2 saturation @ 98%, according to Physical Assessment History notes. Percent of energy/protein needs met: Prescribed Cardiac/Consistent Carbohydrates Diet provides for energy/protein needs (1, 977 Kcal/86 g) during LOS. #1 Nutrition Diagnosis Increased nutrient needs ( specify in comment below) Comments: Protein to support wound healing processes. Diagnosis Progress(for reassessment Continues documentation) Is patient on ventilator? No Is Patient Ambulatory and/or Out of Bed No REE-([facility]-confined to bed) 1716.816 Kcal/Kg value to use for calculation 26 Approximate Energy Requirements Using 1887 kcal/Kg Calculation Used for Recommendations Kcal/kg Additional Notes Protein: 1.25-1.5 g/Kg ABW; 91 -110 g/day. Fluids: 1 ml/Kcal, or as per MD. Nutrition Intervention Change Diet Order: Continue Cardiac/Consistent Carbohydrates Diet. Add Supplement/Snack (indicate name/kcal Continue 28.8 g pkt. Fabio; /protein ) BID. Provides kCal: 190 Provides Protein (gm) 5 Goal #1 Support, through dietary supplementation, wound healing processes during LOS. Goal #2 Adjust the dietary intervention to better serve Pt's needs and clinical conditions during LOS. Follow-Up By: 03/16/22 Additional Comments Continue monitoring food tolerance, %PO intake of meals , and BM.
[2022-03-11] MEDS: LOSARTAN 50 MG TAB PO SCH (11:29)
[2022-03-11] MEDS: oxyCODONE /ACETAMINOPHEN 5-325MG TAB PO PRN (23:55)
[2022-03-11] MEDS: SODIUM CHLORIDE 0.9% 1000 ML 1,000 ML IV SCH (23:55)
[2022-03-12] MEDS: INSULIN LISPRO 100 UNIT/ML SUB-Q SCH ×4 (07:19→22:44)
--- NOTE | 2022-03-12 08:57 | Progress Note ---
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 Patient has diminished cognition and provides minimal history. Patient is bedbound and nonambulatory and has a palliative performance score 30% and requires 6/6 assistance with activities of daily living. Patient history taken from EMS staff, ED staff, as well as patient daughter who is at bedside during exam and interview. As per daughter the patient has experienced right leg swelling and redness over the past 2 days with persistent and worsening symptoms over the same timeframe. In the ER the patient was found to be hypotensive with a systolic blood pressure in the 70s. Patient found to have encephalopathy, acute kidney injury, suspected right femoral artery injury, malnutrition, and debility, as well as clinical symptoms consistent with CHF decompensation. Patient admitted to telemetry due to increased risk of worsening symptoms after medical stabilization. Vascular surgery team consulted in ED. Cardiology team consulted in ED. Patient has diminished cognition but has a positive gag reflex and is able to protect his airway without difficulty at the time my evaluation. No reports of fever, chills, chest pain, palpitation, skin rash, recent contact, or known exposure to COVID-19. No prior admission for review. All medication listed at time of admission has been reconciled. Advanced care planning conducted in E. Echocardiogram 02/23/2022- LV chamber is moderately dilated. There is borderli ne LV hypertrophy. LV systolic function is severely reduced. The estimated left ventricle ejection fraction is 25-30%. Normal left atrial pressure with Grade I diastolic dysfunction. There is basal septal hypokinesis. There is mid anterior, mid septal, apical septal, apical lateral akinesis. There is normal right ventricular size, wall dimension, and systolic function. The aortic valve leaflet excursion is moderately reduced. There is mild aortic regurgitation. There is mild aortic valve stenosis. AV Mean gradient: 7.07 mmHg. AV Peak gradient: 11.6 mmHg. There is no mitral regurgitation. There is trace tricuspid regurgitation. There is no pulmonic regurgitation. No left ventricular thrombus noted with LV contrast images Cardiac cath 03/04/2022-left main patent, LAD proximal in-stent restenosis 100% with left to left collaterals feeding into the mid to ostial LAD, ramus has an ostial 99%. Circumflex, proximal patent mid 30%. OM1 patent, mild luminary irregularities, large caliber vessel. OM2 medium caliber was patent with left to right collaterals feeding into the mid to distal RCA. RCA comes to the left coronary cusp, proximal pain, mid 100% in-stent restenosis, severe LV dysfunction Outpatient medications: Aspirin, plavix, Losartan 100mg PO QD, atorvastatin 20mg PO QHs, Coreg 25mg PO BID, HCTZ 12.5mg PO QD 03/08/22-Patient seen at bedside with patient nurse present. He is status post left femoral cardiac cath with hematoma and pressure dressing present. No evidence of bleeding noted on the dressing. Bilateral pedal pulses positive. I reviewed lab, medication record, and vital signs. H&H 5.8 today. Patient is typed and crossed for 2 units packed red blood cells. Blood pressure 94/54. 250 normal saline bolus x1. O2 sat 90 to 95%. Patient on continuous monitor and oxygen 2 L nasal cannula till completion of blood transfusion. I reviewed plan of care with the attending. 03/09: Vascular input is appreciated patient continues on pressure dressing for noted pseudoaneurysm with complicated by right groin hematoma. Patient required transfusion of 2 unit packed red blood cell with appropriate response of hemoglobin today. Lasix was also given to prevent fluid overload considering patient's ejection fraction. Awaiting wound care evaluation as vascular notes that" and for patient to follow-up in 2 weeks with vascular for arterial ultrasound Will need wound care for the right thigh. Will need wound care for the skin breakdown and blistering. This will need to be a priority of the care for the next few weeks. Recommend wound care consult with followup at wound care center. Patient maintains good pulses distal to the site. Renal function had gone up to 2 we will await repeat study today. Anticipate discharge in a.m. following wound care evaluation. And if cleared by cardiology. 03/11: Patient seen and examined, no new complaints, awaiting placement. Continue current management. creatinine improving some 03/12: Patient seen and examined resting carefully. Continue awaiting placement. Wound care input noted on verbal discussion they are also supposed to contact vascular physician to understand any other requirement and address with the patient.. (1) Injury of femoral artery/pseudoaneurysm with right groin hematoma Current Visit: Yes Status: Acute Plan to address problem: Vascular surgery team consulted, right lower extremity Doppler, apply pressure dressing to right lower extremity, (2) CHF (congestive heart failure)/ischemic cardiomyopathy Current Visit: Yes Status: Acute Qualifiers: Heart failure type: systolic Heart failure chronicity: acute on chronic Qualified Code(s): I50.23 - Acute on chronic systolic (congestive) heart failure Plan to address problem: Strict I's/O, monitor urine output every shift, daily weight, afterload reduction, blood pressure control, supplemental oxygen, cardiology team consulted. (3) ALEXIS (acute kidney injury) secondary to vasomotor nephropathy Current Visit: Yes Status: Acute Plan to address problem: Monitor urine output every shift, daily weight, monitor fluid balance, (4) Seizure disorder Current Visit: Yes Status: Acute Plan to address problem: Continue antiepileptic therapy, supportive care. (5) Metabolic encephalopathy Current Visit: Yes Status: Acute Plan to address problem: Neuro check, seizure precautions, supportive care, aspiration precautions, fall precautions. (6) Malnutrition Current Visit: Yes Status: Acute Qualifiers: Malnutrition type: protein-calorie malnutrition Protein-calorie malnutrition severity: moderate Qualified Code(s): E44.0 - Moderate protein- calorie malnutrition Plan to address problem: Encourage increased protein intake when awake and alert only, dietary supplementation. (7) Vascular dementia/CVA per history Current Visit: Yes Status: Acute Qualifiers: Dementia behavioral disturbance: without behavioral disturbance Qualified Code(s): F01.50 - Vascular dementia without behavioral disturbance Plan to address problem: Verbal prompting, verbal redirection, benzodiazepine therapy as clinically indicated. (8) Cerebral atherosclerosis Current Visit: Yes Status: Acute Plan to address problem: Risk factor reduction, antiplatelet therapy, supportive care. (9) Diabetes melitis Current Visit: Yes Status: Acute Plan to address problem: Consistent carbohydrate diet, Accu-Chek, insulin protocol, hypoglycemia protocol (10) Hyperlipidemia Current Visit: Yes Status: Acute Qualifiers: Hyperlipidemia type: mixed hyperlipidemia Qualified Code(s): E78.2 - Mixed hyperlipidemia Plan to address problem: Statin therapy, supportive care. (11) Hypertension Current Visit: Yes Status: Acute Plan to address problem: Monitor blood pressure occasionally. Patient currently hypotensive. Hold antihypertensive therapy for systolic blood pressure less than equal to 110 mmHg. (12) Acute blood loss anemia (13) DVT prophylaxis Current Visit: Yes Status: Acute Plan to address problem: SCD to bilateral lower extremities while in bed (14) Advance care planning Current Visit: Yes Status: Acute Plan to address problem: Disease education conducted, care plan discussed, diagnoses discussed, prognosis discussed, patient is full code. Patient family acknowledged understanding and agreement with care plan, +30 minutes. (15) Preventative health care Current Visit: Yes Status: Acute Plan to address problem: Patient family counseled regarding home safety, outpatient follow-up with primary care physician for all age and risk factor appropriate screening test. +30 minutes. History Interval history: Patient seen and examined, no new complaints. Bilateral lower extremities warm to the touch. Hospitalist Physical - Physical exam Narrative exam: VITAL SIGNS: Reviewed. GENERAL: The patient appears normally developed, uncomfortable, vital signs as documented. HEAD: No signs of head trauma. EYES: Pupils are equal. Extraocular motions intact. EARS: Hearing grossly intact. MOUTH: Oropharynx is normal. NECK: No adenopathy, no JVD. CHEST: Chest with clear breath sounds bilaterally. No wheezes, rales, or rhonchi. CARDIAC: Regular rate and rhythm. S1 and S2, without murmurs, gallops, or rubs. VASCULAR: No Edema. Peripheral pulses normal and equal in all extremities. ABDOMEN: Soft, non tender and non distended. No rebound or guarding, and no masses palpated. Bowel Sounds normal. MUSCULOSKELETAL: Left groin hematoma, pressure dressing still in place mild ecchymosis noted, tender to touch positive pedal pulses distal to the area good range of motion of all major joints. Extremities without clubbing, cyanosis or edema. Moves lower extremities NEUROLOGIC EXAM: Alert and oriented x 3 No focal sensory or strength deficits. Speech normal. Follows commands. PSYCHIATRIC: Mood normal. SKIN: detail exam as documented in skin assessment T - Constitutional Vitals: Temp Pulse Resp BP Pulse Ox 97.6 F 74 18 131/59 96 03/12/22 08:34 03/12/22 08:34 03/12/22 08:34 03/12/22 08:34 03/12/22 08:34 General appearance: Present: mild distress Results - Labs CBC & Chem 7: 03/11/22 09:19 03/11/22 09:19 Labs: Laboratory Last Values WBC 10.9 K/mm3 (4.5-11.0) 03/11/22 09:19 RBC 3.27 M/mm3 (3.65-5.03) L 03/11/22 09:19 Hgb 10.0 gm/dl (11.8-15.2) L 03/11/22 09:19 Hct 30.5 % (35.5-45.6) L 03/11/22 09:19 MCV 93 fl (84-94) 03/11/22 09:19 MCH 31 pg (28-32) 03/11/22 09:19 MCHC 33 % (32-34) 03/11/22 09:19 RDW 15.1 % (13.2-15.2) 03/11/22 09:19 Plt Count 307 K/mm3 (140-440) 03/11/22 09:19 Lymph % (Auto) 11.0 % (13.4-35.0) L 03/11/22 09:19 Haines % (Auto) 9.1 % (0.0-7.3) H 03/11/22 09:19 Eos % (Auto) 4.7 % (0.0-4.3) H 03/11/22 09:19 Baso % (Auto) 0.5 % (0.0-1.8) 03/11/22 09:19 Lymph # (Auto) 1.2 K/mm3 (1.2-5.4) 03/11/22 09:19 Haines # (Auto) 1.0 K/mm3 (0.0-0.8) H 03/11/22 09:19 Eos # (Auto) 0.5 K/mm3 (0.0-0.4) H 03/11/22 09:19 Baso # (Auto) 0.1 K/mm3 (0.0-0.1) 03/11/22 09:19 Seg Neutrophils % 74.7 % (40.0-70.0) H 03/11/22 09:19 Seg Neutrophils # 8.1 K/mm3 (1.8-7.7) H 03/11/22 09:19 Sodium 139 mmol/L (137-145) 03/11/22 09:19 Potassium 4.3 mmol/L (3.6-5.0) 03/11/22 09:19 Chloride 105.5 mmol/L (98-107) 03/11/22 09:19 Carbon Dioxide 23 mmol/L (22-30) 03/11/22 09:19 Anion Gap 15 mmol/L 03/11/22 09:19 BUN 30 mg/dL (9-20) H 03/11/22 09:19 Creatinine 1.5 mg/dL (0.8-1.3) H 03/11/22 09:19 Estimated GFR 45 ml/min 03/11/22 09:19 BUN/Creatinine Ratio 20 % 03/11/22 09:19 Glucose 124 mg/dL (75-100) H 03/11/22 09:19 POC Glucose 102 mg/dL (70-105) 03/12/22 07:11 Hemoglobin A1c < 4.0 % (4-6) L 03/08/22 14:25 Calcium 7.9 mg/dL (8.4-10.2) L 03/11/22 09:19 Blood Type A POSITIVE 03/08/22 14:00 Antibody Screen Negative 03/08/22 14:00 Crossmatch See Detail 03/08/22 14:00 Win/IV: Voiding Method Condom Catheter Active Medications - Current Medications Current Medications: Generic Name Dose Route Start Last Admin Trade Name Freq PRN Reason Stop Dose Admin Acetaminophen 650 mg 03/07/22 11:54 03/09/22 11:22 Acetaminophen 325 Mg Tab PO 650 mg Q4H PRN Administration Pain MILD(1-3)/Fever >100.5/[place] Albuterol 2.5 mg 03/07/22 11:54 Albuterol 2.5 Mg/3 Ml Nebu IH Q4HRT PRN Shortness Of Breath Allopurinol 100 mg 03/08/22 10:00 03/11/22 09:19 Allopurinol 100 Mg Tab PO 100 mg QDAY REID Administration Aspirin 81 mg 03/08/22 10:00 03/11/22 09:18 Aspirin 81 Mg Tab Chew PO 81 mg QDAY REID Administration Atorvastatin Calcium 20 mg 03/07/22 22:00 03/11/22 21:33 Atorvastatin 20 Mg Tab PO 20 mg QHS REID Administration Carvedilol 25 mg 03/10/22 22:00 03/11/22 21:34 Carvedilol 25 Mg Tab PO 25 mg BID REID Administration Clopidogrel Bisulfate 75 mg 03/08/22 10:00 03/11/22 09:19 Clopidogrel 75 Mg Tab PO 75 mg QDAY REID Administration Dextrose 50 ml 03/07/22 11:58 Dextrose 50% In Water (25gm) 50 Ml Syringe IV Q30MIN PRN Hypoglycemia Protocol Famotidine 20 mg 03/08/22 10:00 03/11/22 11:05 Famotidine 10 Mg Tab PO 20 mg DAILY REID Administration Heparin Sodium (Porcine) 5,000 unit 03/08/22 12:00 03/11/22 21:34 Heparin 5,000 Unit/1 Ml Vial SUB-Q 5,000 unit Q12HR REID Administration Hydrochlorothiazide 12.5 mg 03/10/22 11:00 03/11/22 09:19 Hydrochlorothiazide 12.5 Mg Cap PO 12.5 mg QDAY REID Administration Hydromorphone HCl 0.5 mg 03/07/22 11:54 03/10/22 11:58 Hydromorphone 0.5 Mg/0.5 Ml Inj IV 0.5 mg Q3H PRN Administration Pain , Severe (7-10) Sodium Chloride 1,000 mls @ 42 mls/hr 03/07/22 12:00 03/11/22 23:55 Nacl 0.9% 1000 Ml IV 42 mls/hr DIRECT REID Administration Insulin Human Lispro 0 unit 03/07/22 16:30 03/12/22 07:19 Insulin Lispro 100 Unit/Ml SUB-Q Not Given ACHS [facility] Protocol Ketoconazole 1 applic 03/08/22 10:00 03/11/22 09:24 Ketoconazole 2% Cream 15 Gm TP 1 applic QDAY REID Administration Losartan Potassium 100 mg 03/10/22 11:00 03/11/22 11:29 Losartan 50 Mg Tab PO Not Given QDAY REID Metoclopramide HCl 5 mg 03/08/22 09:30 Metoclopramide 10 Mg Tab PO Q6H PRN Nausea And Vomiting Ondansetron HCl 4 mg 03/08/22 09:30 Ondansetron 4 Mg/2 Ml Inj IV Q8H PRN Nausea And Vomiting Oxycodone/Acetaminophen 1 tab 03/07/22 11:54 03/11/22 23:55 Oxycodone /Acetaminophen 5-325mg Tab PO 1 tab Q6H PRN Administration Pain, Moderate (4-6) Phenytoin 100 mg 03/07/22 22:00 03/11/22 21:34 Phenytoin 100 Mg Capsule.Er PO 100 mg BID REID Administration Senna 8.6 mg 03/08/22 10:00 Sennosides 8.6 Mg Tab PO Q12HR PRN Constipation Sodium Chloride 10 ml 03/07/22 22:00 03/11/22 21:35 Sodium Chloride 0.9% 10 Ml Flush Syringe IV 10 ml BID REID Administration Sodium Chloride 10 ml 03/07/22 11:54 Sodium Chloride 0.9% 10 Ml Flush Syringe IV PRN PRN LINE FLUSH Nutrition/Malnutrition Assess - Dietary Evaluation Nutrition/Malnutrition Findings: Nutrition Notes Start: 03/08/22 17:41 Freq: Status: Active Protocol: Document 03/09/22 14:00 AYDEN (Rec: 03/09/22 14:09 AYDEN [id number]) Nutrition Notes Initial or Follow up Brief Note Current Diagnosis Acute Kidney Injury,Coronary Artery Disease,Diabetes, Hypertension,Malnutrition, Stroke,Hyperlipidemia Other Pertinent Diagnosis Pseudoaneurysm/Hematoma s/p Femoral Artery Injury, Metabolic Encephalopathy Current Diet Cardiac/Consistent Carbohydrates Diet+D Suppl ( since L 03/09). Height 5 ft 8 in Weight 72.575 kg [place] Body Weight (kg) 70.00 BMI 24.3 Weight change and time frame No body weight change reported in 1 day. Weight Status Appropriate Subjective/Other Information RD consult for routine F/U on dietary advancement. Pt's PO intake of meals has been Poor (25%) but well tolerated, according to ADL notes. Pt is on Room Air, O2 saturation @ 98%, according to Physical Assessment History notes. Percent of energy/protein needs met: Prescribed Cardiac/Consistent Carbohydrates Diet provides for energy/protein needs (1, 977 Kcal/86 g) during LOS. #1 Nutrition Diagnosis Increased nutrient needs ( specify in comment below) Comments: Protein to support wound healing processes. Diagnosis Progress(for reassessment Continues documentation) Is patient on ventilator? No Is Patient Ambulatory and/or Out of Bed No REE-([place]-confined to bed) 1716.816 Kcal/Kg value to use for calculation 26 Approximate Energy Requirements Using 1887 kcal/Kg Calculation Used for Recommendations Kcal/kg Additional Notes Protein: 1.25-1.5 g/Kg ABW; 91 -110 g/day. Fluids: 1 ml/Kcal, or as per MD. Nutrition Intervention Change Diet Order: Continue Cardiac/Consistent Carbohydrates Diet. Add Supplement/Snack (indicate name/kcal Continue 28.8 g pkt. Fabio; /protein ) BID. Provides kCal: 190 Provides Protein (gm) 5 Goal #1 Support, through dietary supplementation, wound healing processes during LOS. Goal #2 Adjust the dietary intervention to better serve Pt's needs and clinical conditions during LOS. Follow-Up By: 03/16/22 Additional Comments Continue monitoring food tolerance, %PO intake of meals , and BM.
[2022-03-12] MEDS: hydroCHLOROthiazide 12.5 MG CAP PO SCH (09:00)
[2022-03-12] MEDS: HEPARIN 5,000 UNIT/1 ML VIAL SUB-Q SCH ×2 (09:00→21:21)
[2022-03-12] MEDS: FAMOTIDINE 10 MG TAB PO SCH (09:00)
[2022-03-12] MEDS: carvediloL 25 MG TAB PO SCH ×2 (09:00→21:21)
[2022-03-12] MEDS: allopurinoL 100 MG TAB PO SCH (09:00)
[2022-03-12] MEDS: CLOPIDOGREL 75 MG TAB PO SCH (09:00)
[2022-03-12] MEDS: KETOCONAZOLE 2% CREAM 15 GM TP SCH (09:00)
[2022-03-12] MEDS: ASPIRIN 81 MG TAB CHEW PO SCH (09:00)
[2022-03-12] MEDS: PHENYTOIN 100 MG CAPSULE.ER PO SCH ×2 (09:00→21:20)
[2022-03-12] MEDS: LOSARTAN 50 MG TAB PO SCH (13:24)
[2022-03-13 06:44] LABS: Hematocrit 31.3 % (35.5-45.6); Hemoglobin 10.1 gm/dl (11.8-15.2); Mean Corpuscular HGB Conc 32 % (32-34); Mean Corpuscular Volume 93 fl (84-94); Platelet Count 359 K/mm3 (140-440); Red Blood Count 3.36 M/mm3 (3.65-5.03); Red Cell Distribution Width 15.4 % (13.2-15.2)
[2022-03-13 06:58] LABS: Calcium 8.3 mg/dL (8.4-10.2)
[2022-03-13] MEDS: INSULIN LISPRO 100 UNIT/ML SUB-Q SCH ×4 (07:20→21:33)
--- NOTE | 2022-03-13 07:22 | Progress Note ---
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 Patient has diminished cognition and provides minimal history. Patient is bedbound and nonambulatory and has a palliative performance score 30% and requires 6/6 assistance with activities of daily living. Patient history taken from EMS staff, ED staff, as well as patient daughter who is at bedside during exam and interview. As per daughter the patient has experienced right leg swelling and redness over the past 2 days with persistent and worsening symptoms over the same timeframe. In the ER the patient was found to be hypotensive with a systolic blood pressure in the 70s. Patient found to have encephalopathy, acute kidney injury, suspected right femoral artery injury, malnutrition, and debility, as well as clinical symptoms consistent with CHF decompensation. Patient admitted to telemetry due to increased risk of worsening symptoms after medical stabilization. Vascular surgery team consulted in ED. Cardiology team consulted in ED. Patient has diminished cognition but has a positive gag reflex and is able to protect his airway without difficulty at the time my evaluation. No reports of fever, chills, chest pain, palpitation, skin rash, recent contact, or known exposure to COVID-19. No prior admission for review. All medication listed at time of admission has been reconciled. Advanced care planning conducted in E. Echocardiogram 02/23/2022- LV chamber is moderately dilated. There is borderli ne LV hypertrophy. LV systolic function is severely reduced. The estimated left ventricle ejection fraction is 25-30%. Normal left atrial pressure with Grade I diastolic dysfunction. There is basal septal hypokinesis. There is mid anterior, mid septal, apical septal, apical lateral akinesis. There is normal right ventricular size, wall dimension, and systolic function. The aortic valve leaflet excursion is moderately reduced. There is mild aortic regurgitation. There is mild aortic valve stenosis. AV Mean gradient: 7.07 mmHg. AV Peak gradient: 11.6 mmHg. There is no mitral regurgitation. There is trace tricuspid regurgitation. There is no pulmonic regurgitation. No left ventricular thrombus noted with LV contrast images Cardiac cath 03/04/2022-left main patent, LAD proximal in-stent restenosis 100% with left to left collaterals feeding into the mid to ostial LAD, ramus has an ostial 99%. Circumflex, proximal patent mid 30%. OM1 patent, mild luminary irregularities, large caliber vessel. OM2 medium caliber was patent with left to right collaterals feeding into the mid to distal RCA. RCA comes to the left coronary cusp, proximal pain, mid 100% in-stent restenosis, severe LV dysfunction Outpatient medications: Aspirin, plavix, Losartan 100mg PO QD, atorvastatin 20mg PO QHs, Coreg 25mg PO BID, HCTZ 12.5mg PO QD 03/08/22-Patient seen at bedside with patient nurse present. He is status post left femoral cardiac cath with hematoma and pressure dressing present. No evidence of bleeding noted on the dressing. Bilateral pedal pulses positive. I reviewed lab, medication record, and vital signs. H&H 5.8 today. Patient is typed and crossed for 2 units packed red blood cells. Blood pressure 94/54. 250 normal saline bolus x1. O2 sat 90 to 95%. Patient on continuous monitor and oxygen 2 L nasal cannula till completion of blood transfusion. I reviewed plan of care with the attending. 03/09: Vascular input is appreciated patient continues on pressure dressing for noted pseudoaneurysm with complicated by right groin hematoma. Patient required transfusion of 2 unit packed red blood cell with appropriate response of hemoglobin today. Lasix was also given to prevent fluid overload considering patient's ejection fraction. Awaiting wound care evaluation as vascular notes that" and for patient to follow-up in 2 weeks with vascular for arterial ultrasound Will need wound care for the right thigh. Will need wound care for the skin breakdown and blistering. This will need to be a priority of the care for the next few weeks. Recommend wound care consult with followup at wound care center. Patient maintains good pulses distal to the site. Renal function had gone up to 2 we will await repeat study today. Anticipate discharge in a.m. following wound care evaluation. And if cleared by cardiology. 03/11: Patient seen and examined, no new complaints, awaiting placement. Continue current management. creatinine improving some 03/12: Patient seen and examined resting carefully. Continue awaiting placement. Wound care input noted on verbal discussion they are also supposed to contact vascular physician to understand any other requirement and address with the patient. 03/13: Patient was tested for COVID-19 for screening on placement came back positive. Patient does not have any respiratory symptoms at this time. Hemoglobin remained stable. Respiratory status intact. We will continue to monitor while awaiting placement.. (1) Injury of femoral artery/pseudoaneurysm with right groin hematoma Current Visit: Yes Status: Acute Plan to address problem: Vascular surgery team consulted, right lower extremity Doppler, apply pressure dressing to right lower extremity, (2) CHF (congestive heart failure)/ischemic cardiomyopathy Current Visit: Yes Status: Acute Qualifiers: Heart failure type: systolic Heart failure chronicity: acute on chronic Qualified Code(s): I50.23 - Acute on chronic systolic (congestive) heart failure Plan to address problem: Strict I's/O, monitor urine output every shift, daily weight, afterload reduction, blood pressure control, supplemental oxygen, cardiology team consulted. (3) ALEXIS (acute kidney injury) secondary to vasomotor nephropathy Current Visit: Yes Status: Acute Plan to address problem: Monitor urine output every shift, daily weight, monitor fluid balance, (4) Seizure disorder Current Visit: Yes Status: Acute Plan to address problem: Continue antiepileptic therapy, supportive care. (5) Metabolic encephalopathy Current Visit: Yes Status: Acute Plan to address problem: Neuro check, seizure precautions, supportive care, aspiration precautions, fall precautions. (6) Malnutrition Current Visit: Yes Status: Acute Qualifiers: Malnutrition type: protein-calorie malnutrition Protein-calorie malnutrition severity: moderate Qualified Code(s): E44.0 - Moderate protein- calorie malnutrition Plan to address problem: Encourage increased protein intake when awake and alert only, dietary supplementation. (7) Vascular dementia/CVA per history Current Visit: Yes Status: Acute Qualifiers: Dementia behavioral disturbance: without behavioral disturbance Qualified Code(s): F01.50 - Vascular dementia without behavioral disturbance Plan to address problem: Verbal prompting, verbal redirection, benzodiazepine therapy as clinically indicated. (8) Cerebral atherosclerosis Current Visit: Yes Status: Acute Plan to address problem: Risk factor reduction, antiplatelet therapy, supportive care. (9) Diabetes melitis Current Visit: Yes Status: Acute Plan to address problem: Consistent carbohydrate diet, Accu-Chek, insulin protocol, hypoglycemia protocol (10) Hyperlipidemia Current Visit: Yes Status: Acute Qualifiers: Hyperlipidemia type: mixed hyperlipidemia Qualified Code(s): E78.2 - Mixed hyperlipidemia Plan to address problem: Statin therapy, supportive care. (11) Hypertension Current Visit: Yes Status: Acute Plan to address problem: Monitor blood pressure occasionally. Patient currently hypotensive. Hold antihypertensive therapy for systolic blood pressure less than equal to 110 mmHg. (12) Acute blood loss anemia (13) COVID-19 positive (14) DVT prophylaxis Current Visit: Yes Status: Acute Plan to address problem: SCD to bilateral lower extremities while in bed (15) Advance care planning Current Visit: Yes Status: Acute Plan to address problem: Disease education conducted, care plan discussed, diagnoses discussed, prognosis discussed, patient is full code. Patient family acknowledged understanding and agreement with care plan, +30 minutes. (15) Preventative health care Current Visit: Yes Status: Acute Plan to address problem: Patient family counseled regarding home safety, outpatient follow-up with primary care physician for all age and risk factor appropriate screening test. +30 minutes. History Interval history: Patient seen and examined, no new complaints. Bilateral lower extremities warm to the touch. No new complaints, still mild tenderness at the right groin area. Hospitalist Physical - Physical exam Narrative exam: VITAL SIGNS: Reviewed. GENERAL: The patient appears normally developed, vital signs as documented. HEAD: No signs of head trauma. EYES: Pupils are equal. Extraocular motions intact. EARS: Hearing grossly intact. MOUTH: Oropharynx is normal. NECK: No adenopathy, no JVD. CHEST: Chest with clear breath sounds bilaterally. No wheezes, rales, or rhonchi. CARDIAC: Regular rate and rhythm. S1 and S2, without murmurs, gallops, or rubs. VASCULAR: No Edema. Peripheral pulses normal and equal in all extremities. ABDOMEN: Soft, non tender and non distended. No rebound or guarding, and no masses palpated. Bowel Sounds normal. MUSCULOSKELETAL: Left groin hematoma, pressure dressing still in place mild ecchymosis noted, tender to touch positive pedal pulses distal to the area good range of motion of all major joints. Extremities without clubbing, cyanosis or edema. Moves lower extremities NEUROLOGIC EXAM: Alert and oriented x 3 No focal sensory or strength deficits. Speech normal. Follows commands. PSYCHIATRIC: Mood normal. SKIN: detail exam as documented in skin assessment T - Constitutional Vitals: Temp Pulse Resp BP Pulse Ox 98.0 F 79 18 122/69 99 03/13/22 04:54 03/13/22 04:54 03/13/22 04:54 03/13/22 04:54 03/13/22 04:54 General appearance: Present: mild distress Results - Labs CBC & Chem 7: 03/13/22 05:49 03/13/22 05:49 Labs: Laboratory Last Values WBC 10.1 K/mm3 (4.5-11.0) 03/13/22 05:49 RBC 3.36 M/mm3 (3.65-5.03) L 03/13/22 05:49 Hgb 10.1 gm/dl (11.8-15.2) L 03/13/22 05:49 Hct 31.3 % (35.5-45.6) L 03/13/22 05:49 MCV 93 fl (84-94) 03/13/22 05:49 MCH 30 pg (28-32) 03/13/22 05:49 MCHC 32 % (32-34) 03/13/22 05:49 RDW 15.4 % (13.2-15.2) H 03/13/22 05:49 Plt Count 359 K/mm3 (140-440) 03/13/22 05:49 Lymph % (Auto) 11.0 % (13.4-35.0) L 03/11/22 09:19 [place] % (Auto) 9.1 % (0.0-7.3) H 03/11/22 09:19 Eos % (Auto) 4.7 % (0.0-4.3) H 03/11/22 09:19 Baso % (Auto) 0.5 % (0.0-1.8) 03/11/22 09:19 Lymph # (Auto) 1.2 K/mm3 (1.2-5.4) 03/11/22 09:19 [place] # (Auto) 1.0 K/mm3 (0.0-0.8) H 03/11/22 09:19 Eos # (Auto) 0.5 K/mm3 (0.0-0.4) H 03/11/22 09:19 Baso # (Auto) 0.1 K/mm3 (0.0-0.1) 03/11/22 09:19 Seg Neutrophils % 74.7 % (40.0-70.0) H 03/11/22 09:19 Seg Neutrophils # 8.1 K/mm3 (1.8-7.7) H 03/11/22 09:19 Sodium 140 mmol/L (137-145) 03/13/22 05:49 Potassium 4.6 mmol/L (3.6-5.0) 03/13/22 05:49 Chloride 107.1 mmol/L (98-107) H 03/13/22 05:49 Carbon Dioxide 23 mmol/L (22-30) 03/13/22 05:49 Anion Gap 15 mmol/L 03/13/22 05:49 BUN 26 mg/dL (9-20) H 03/13/22 05:49 Creatinine 1.4 mg/dL (0.8-1.3) H 03/13/22 05:49 Estimated GFR 49 ml/min 03/13/22 05:49 BUN/Creatinine Ratio 19 % 03/13/22 05:49 Glucose 95 mg/dL (75-100) 03/13/22 05:49 POC Glucose 97 mg/dL (70-105) 03/12/22 22:07 Hemoglobin A1c < 4.0 % (4-6) L 03/08/22 14:25 Calcium 8.3 mg/dL (8.4-10.2) L 03/13/22 05:49 SARS-CoV-2 (PCR) Positive (Negative) A 03/12/22 10:40 Blood Type A POSITIVE 03/08/22 14:00 Antibody Screen Negative 03/08/22 14:00 Crossmatch See Detail 03/08/22 14:00 Win/IV: Voiding Method Condom Catheter Active Medications - Current Medications Current Medications: Generic Name Dose Route Start Last Admin Trade Name Freq PRN Reason Stop Dose Admin Acetaminophen 650 mg 03/07/22 11:54 03/09/22 11:22 Acetaminophen 325 Mg Tab PO 650 mg Q4H PRN Administration Pain MILD(1-3)/Fever >100.5/[place] Albuterol 2.5 mg 03/07/22 11:54 Albuterol 2.5 Mg/3 Ml Nebu IH Q4HRT PRN Shortness Of Breath Allopurinol 100 mg 03/08/22 10:00 03/12/22 09:00 Allopurinol 100 Mg Tab PO 100 mg QDAY REID Administration Aspirin 81 mg 03/08/22 10:00 03/12/22 09:00 Aspirin 81 Mg Tab Chew PO 81 mg QDAY REID Administration Atorvastatin Calcium 20 mg 03/07/22 22:00 03/12/22 21:21 Atorvastatin 20 Mg Tab PO 20 mg QHS REID Administration Carvedilol 25 mg 03/10/22 22:00 03/12/22 21:21 Carvedilol 25 Mg Tab PO 25 mg BID REID Administration Clopidogrel Bisulfate 75 mg 03/08/22 10:00 03/12/22 09:00 Clopidogrel 75 Mg Tab PO 75 mg QDAY REID Administration Dextrose 50 ml 03/07/22 11:58 Dextrose 50% In Water (25gm) 50 Ml Syringe IV Q30MIN PRN Hypoglycemia Protocol Famotidine 20 mg 03/08/22 10:00 03/12/22 09:00 Famotidine 10 Mg Tab PO 20 mg DAILY REID Administration Heparin Sodium (Porcine) 5,000 unit 03/08/22 12:00 03/12/22 21:21 Heparin 5,000 Unit/1 Ml Vial SUB-Q 5,000 unit Q12HR REID Administration Hydrochlorothiazide 12.5 mg 03/10/22 11:00 03/12/22 09:00 Hydrochlorothiazide 12.5 Mg Cap PO 12.5 mg QDAY REID Administration Hydromorphone HCl 0.5 mg 03/07/22 11:54 03/10/22 11:58 Hydromorphone 0.5 Mg/0.5 Ml Inj IV 0.5 mg Q3H PRN Administration Pain , Severe (7-10) Sodium Chloride 1,000 mls @ 42 mls/hr 03/07/22 12:00 03/11/22 23:55 Nacl 0.9% 1000 Ml IV 42 mls/hr DIRECT REID Administration Insulin Human Lispro 0 unit 03/07/22 16:30 03/12/22 22:44 Insulin Lispro 100 Unit/Ml SUB-Q Not Given ACHS REID Protocol Ketoconazole 1 applic 03/08/22 10:00 03/12/22 09:00 Ketoconazole 2% Cream 15 Gm TP Not Given QDAY REID Losartan Potassium 100 mg 03/10/22 11:00 03/12/22 13:24 Losartan 50 Mg Tab PO Not Given QDAY REID Metoclopramide HCl 5 mg 03/08/22 09:30 Metoclopramide 10 Mg Tab PO Q6H PRN Nausea And Vomiting Ondansetron HCl 4 mg 03/08/22 09:30 Ondansetron 4 Mg/2 Ml Inj IV Q8H PRN Nausea And Vomiting Oxycodone/Acetaminophen 1 tab 03/07/22 11:54 03/11/22 23:55 Oxycodone /Acetaminophen 5-325mg Tab PO 1 tab Q6H PRN Administration Pain, Moderate (4-6) Phenytoin 100 mg 03/07/22 22:00 03/12/22 21:20 Phenytoin 100 Mg Capsule.Er PO 100 mg BID REID Administration Senna 8.6 mg 03/08/22 10:00 Sennosides 8.6 Mg Tab PO Q12HR PRN Constipation Sodium Chloride 10 ml 03/07/22 22:00 03/12/22 21:22 Sodium Chloride 0.9% 10 Ml Flush Syringe IV 10 ml BID REID Administration Sodium Chloride 10 ml 03/07/22 11:54 Sodium Chloride 0.9% 10 Ml Flush Syringe IV PRN PRN LINE FLUSH Nutrition/Malnutrition Assess - Dietary Evaluation Nutrition/Malnutrition Findings: Nutrition Notes Start: 03/08/22 17:41 Freq: Status: Active Protocol: Document 03/09/22 14:00 AYDEN (Rec: 03/09/22 14:09 AYDEN [email or web address]) Nutrition Notes Initial or Follow up Brief Note Current Diagnosis Acute Kidney Injury,Coronary Artery Disease,Diabetes, Hypertension,Malnutrition, Stroke,Hyperlipidemia Other Pertinent Diagnosis Pseudoaneurysm/Hematoma s/p Femoral Artery Injury, Metabolic Encephalopathy Current Diet Cardiac/Consistent Carbohydrates Diet+D Suppl ( since L 03/09). Height 5 ft 8 in Weight 72.575 kg [place] Body Weight (kg) 70.00 BMI 24.3 Weight change and time frame No body weight change reported in 1 day. Weight Status Appropriate Subjective/Other Information RD consult for routine F/U on dietary advancement. Pt's PO intake of meals has been Poor (25%) but well tolerated, according to ADL notes. Pt is on Room Air, O2 saturation @ 98%, according to Physical Assessment History notes. Percent of energy/protein needs met: Prescribed Cardiac/Consistent Carbohydrates Diet provides for energy/protein needs (1, 977 Kcal/86 g) during LOS. #1 Nutrition Diagnosis Increased nutrient needs ( specify in comment below) Comments: Protein to support wound healing processes. Diagnosis Progress(for reassessment Continues documentation) Is patient on ventilator? No Is Patient Ambulatory and/or Out of Bed No REE-([place] Jend-confined to bed) 1716.816 Kcal/Kg value to use for calculation 26 Approximate Energy Requirements Using 1887 kcal/Kg Calculation Used for Recommendations Kcal/kg Additional Notes Protein: 1.25-1.5 g/Kg ABW; 91 -110 g/day. Fluids: 1 ml/Kcal, or as per MD. Nutrition Intervention Change Diet Order: Continue Cardiac/Consistent Carbohydrates Diet. Add Supplement/Snack (indicate name/kcal Continue 28.8 g pkt. Fabio; /protein ) BID. Provides kCal: 190 Provides Protein (gm) 5 Goal #1 Support, through dietary supplementation, wound healing processes during LOS. Goal #2 Adjust the dietary intervention to better serve Pt's needs and clinical conditions during LOS. Follow-Up By: 03/16/22 Additional Comments Continue monitoring food tolerance, %PO intake of meals , and BM.
[2022-03-13] MEDS: allopurinoL 100 MG TAB PO SCH (09:50)
[2022-03-13] MEDS: ASPIRIN 81 MG TAB CHEW PO SCH (09:50)
[2022-03-13] MEDS: CLOPIDOGREL 75 MG TAB PO SCH (09:50)
[2022-03-13] MEDS: FAMOTIDINE 10 MG TAB PO SCH (09:51)
[2022-03-13] MEDS: PHENYTOIN 100 MG CAPSULE.ER PO SCH ×2 (09:52→21:25)
[2022-03-13] MEDS: HEPARIN 5,000 UNIT/1 ML VIAL SUB-Q SCH ×2 (09:53→21:24)
[2022-03-13] MEDS: hydroCHLOROthiazide 12.5 MG CAP PO SCH (09:54)
[2022-03-13] MEDS: carvediloL 25 MG TAB PO SCH ×2 (09:55→21:32)
[2022-03-13] MEDS: KETOCONAZOLE 2% CREAM 15 GM TP SCH (09:56)
[2022-03-13] MEDS: LOSARTAN 50 MG TAB PO SCH (09:56)
[2022-03-14] MEDS: ASPIRIN 81 MG TAB CHEW PO SCH (10:33)
[2022-03-14] MEDS: FAMOTIDINE 10 MG TAB PO SCH (10:33)
[2022-03-14] MEDS: HEPARIN 5,000 UNIT/1 ML VIAL SUB-Q SCH ×2 (10:33→22:17)
[2022-03-14] MEDS: INSULIN LISPRO 100 UNIT/ML SUB-Q SCH ×4 (10:33→22:16)
[2022-03-14] MEDS: LOSARTAN 50 MG TAB PO SCH (10:34)
[2022-03-14] MEDS: hydroCHLOROthiazide 12.5 MG CAP PO SCH (10:34)
[2022-03-14] MEDS: CLOPIDOGREL 75 MG TAB PO SCH (10:34)
[2022-03-14] MEDS: allopurinoL 100 MG TAB PO SCH (10:34)
[2022-03-14] MEDS: PHENYTOIN 100 MG CAPSULE.ER PO SCH ×2 (10:34→23:15)
[2022-03-14] MEDS: carvediloL 25 MG TAB PO SCH ×2 (10:34→23:16)
[2022-03-14] MEDS: KETOCONAZOLE 2% CREAM 15 GM TP SCH (10:35)
--- NOTE | 2022-03-14 11:05 | Discharge Summary ---
Providers - Providers Date of Admission: 03/07/22 11:54 Attending physician: PAUL CRISTINA MD 03/06/22 20:33 Consult to Case Management [CONS] Stat Services Needed at Discharge: [employer] As[employer]er Notified:: . Comment:: family did call back, she was on the phone w/the pts facility @ the time gb Additional Physician Instructions: Facility where patient came from unable to take patient back; family not answering phone call too. 03/07/22 11:54 Consult to Physician [CONS] Routine Comment: Consulting Provider: CLARA ZEE Physician Instructions: Reason For Exam: Hematoma 03/07/22 11:57 Consult to Case Management [CONS] Routine Services Needed at Discharge: Other Notified:: in am Additional Physician Instructions: Please send our for SNF/[facility] Placement Physical Therapy Evaluation and Treat [CONS] Routine Comment: Reason For Exam: weakness 03/08/22 10:00 Consult to Wound/ET Nurse [CONS] Routine Reason For Exam: right thigh 03/08/22 13:23 Consult to Dietitian/Nutrition [CONS] Routine Physician Instructions: Reason For Exam: Reason for Consult: Poor oral intake 03/08/22 13:32 Occupational Therapy Evaluate and Treat [CONS] Routine Comment: Reason For Exam: Weakness Primary care physician: RECEIVING OPERATOR Hospitalization Reason for admission: Right leg swelling Condition: Stable Hospital course: 76 YO Male Assisted Living Facility 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 Patient has diminished cognition and provides minimal history. Patient is bedbound and nonambulatory and has a palliative performance score 30% and requires 6/6 assistance with activities of daily living. Patient history taken from EMS staff, ED staff, as well as patient daughter who is at bedside during exam and interview. As per daughter the patient has experienced right leg swelling and redness over the past 2 days with persistent and worsening symptoms over the same timeframe. In the ER the patient was found to be hypotensive with a systolic blood pressure in the 70s. Patient found to have encephalopathy, acute kidney injury, suspected right femoral artery injury, malnutrition, and debility, as well as clinical symptoms consistent with CHF decompensation. Patient admitted to telemetry due to increased risk of worsening symptoms after medical stabilization. Vascular surgery team consulted in ED. Cardiology team consulted in ED. Patient has diminished cognition but has a positive gag reflex and is able to protect his airway without difficulty at the time my evaluation. No reports of fever, chills, chest pain, palpitation, skin rash, recent contact, or known exposure to COVID-19. No prior admission for review. All medication listed at time of admission has been reconciled. Advanced care planning conducted in E. Echocardiogram 02/23/2022- LV chamber is moderately dilated. There is borderline LV hypertrophy. LV systolic function is severely reduced. The estimated left ventricle ejection fraction is 25-30%. Normal left atrial pressure with Grade I diastolic dysfunction. There is basal septal hypokinesis. There is mid anterior, mid septal, apical septal, apical lateral akinesis. There is normal right ventricular size, wall dimension, and systolic function. The aortic valve leaflet excursion is moderately reduced. There is mild aortic regu rgitation. There is mild aortic valve stenosis. AV Mean gradient: 7.07 mmHg. AV Peak gradient: 11.6 mmHg. There is no mitral regurgitation. There is trace tricuspid regurgitation. There is no pulmonic regurgitation. No left ventricular thrombus noted with LV contrast images Cardiac cath 03/04/2022-left main patent, LAD proximal in-stent restenosis 100% with left to left collaterals feeding into the mid to ostial LAD, ramus has an ostial 99%. Circumflex, proximal patent mid 30%. OM1 patent, mild luminary irregularities, large caliber vessel. OM2 medium caliber was patent with left to right collaterals feeding into the mid to distal RCA. RCA comes to the left coronary cusp, proximal pain, mid 100% in-stent restenosis, severe LV dysfunction Outpatient medications: Aspirin, plavix, Losartan 100mg PO QD, atorvastatin 20mg PO QHs, Coreg 25mg PO BID, HCTZ 12.5mg PO QD 03/08/22-Patient seen at bedside with patient nurse present. He is status post left femoral cardiac cath with hematoma and pressure dressing present. No evidence of bleeding noted on the dressing. Bilateral pedal pulses positive. I reviewed lab, medication record, and vital signs. H&H 5.8 today. Patient is typed and crossed for 2 units packed red blood cells. Blood pressure 94/54. 250 normal saline bolus x1. O2 sat 90 to 95%. Patient on continuous monitor and oxygen 2 L nasal cannula till completion of blood transfusion. I reviewed plan of care with the attending. 03/09: Vascular input is appreciated patient continues on pressure dressing for noted pseudoaneurysm with complicated by right groin hematoma. Patient required transfusion of 2 unit packed red blood cell with appropriate response of hemoglobin today. Lasix was also given to prevent fluid overload considering patient's ejection fraction. Awaiting wound care evaluation as vascular notes that" and for patient to follow-up in 2 weeks with vascular for arterial ultrasound Will need wound care for the right thigh. Will need wound care for the skin breakdown and blistering. This will need to be a priority of the care for the next few weeks. Recommend wound care consult with followup at wound care center. Patient maintains good pulses distal to the site. Renal function had gone up to 2 we will await repeat study today. Anticipate discharge in a.m. following wound care evaluation. And if cleared by cardiology. 03/11: Patient seen and examined, no new complaints, awaiting placement. Continue current management. creatinine improving some 03/12: Patient seen and examined resting carefully. Continue awaiting placement. Wound care input noted on verbal discussion they are also supposed to contact vascular physician to understand any other requirement and address with the patient. 03/13: Patient was tested for COVID-19 for screening on placement came back positive. Patient does not have any respiratory symptoms at this time. Hemog lobin remained stable. Respiratory status intact. We will continue to monitor while awaiting placement. 03/14: Patient remains clinically stable, H/H stable, MOVING ALL EXT. Pulses noted and palpable. Awaiting authorization. (1) Injury of femoral artery/pseudoaneurysm with right groin hematoma Current Visit: Yes Status: Acute Plan to address problem: Vascular surgery team consulted, right lower extremity Doppler, apply pressure dressing to right lower extremity, (2) CHF (congestive heart failure)/ischemic cardiomyopathy Current Visit: Yes Status: Acute Qualifiers: Heart failure type: systolic Heart failure chronicity: acute on chronic Qualified Code(s): I50.23 - Acute on chronic systolic (congestive) heart failure Plan to address problem: Strict I's/O, monitor urine output every shift, daily weight, afterload reduction, blood pressure control, supplemental oxygen, cardiology team consulted. (3) ALEXIS (acute kidney injury) secondary to vasomotor nephropathy Current Visit: Yes Status: Acute Plan to address problem: Monitor urine output every shift, daily weight, monitor fluid balance, (4) Seizure disorder Current Visit: Yes Status: Acute Plan to address problem: Continue antiepileptic therapy, supportive care. (5) Metabolic encephalopathy Current Visit: Yes Status: Acute Plan to address problem: Neuro check, seizure precautions, supportive care, aspiration precautions, fall precautions. (6) Malnutrition Current Visit: Yes Status: Acute Qualifiers: Malnutrition type: protein-calorie malnutrition Protein-calorie malnutrition severity: moderate Qualified Code(s): E44.0 - Moderate protein- calorie malnutrition Plan to address problem: Encourage increased protein intake when awake and alert only, dietary supplementation. (7) Vascular dementia/CVA per history Current Visit: Yes Status: Acute Qualifiers: Dementia behavioral disturbance: without behavioral disturbance Qualified Code(s): F01.50 - Vascular dementia without behavioral disturbance Plan to address problem: Verbal prompting, verbal redirection, benzodiazepine therapy as clinically indicated. (8) Cerebral atherosclerosis Current Visit: Yes Status: Acute Plan to address problem: Risk factor reduction, antiplatelet therapy, supportive care. (9) Diabetes melitis Current Visit: Yes Status: Acute Plan to address problem: Consistent carbohydrate diet, Accu-Chek, insulin protocol, hypoglycemia protocol (10) Hyperlipidemia Current Visit: Yes Status: Acute Qualifiers: Hyperlipidemia type: mixed hyperlipidemia Qualified Code(s): E78.2 - Mixed hyperlipidemia Plan to address problem: Statin therapy, supportive care. (11) Hypertension Current Visit: Yes Status: Acute Plan to address problem: Monitor blood pressure occasionally. Patient currently hypotensive. Hold antihypertensive therapy for systolic blood pressure less than equal to 110 mmHg. (12) Acute blood loss anemia (13) COVID-19 positive (14) DVT prophylaxis Current Visit: Yes Status: Acute Plan to address problem: SCD to bilateral lower extremities while in bed (15) Advance care planning Current Visit: Yes Status: Acute Plan to address problem: Disease education conducted, care plan discussed, diagnoses discussed, prognosis discussed, patient is full code. Patient family acknowledged understanding and agreement with care plan, +30 minutes. (15) Preventative health care Current Visit: Yes Status: Acute Plan to address problem: Patient family counseled regarding home safety, outpatient follow-up with primary care physician for all age and risk factor appropriate screening test. +30 minutes. Disposition: [facility] Final Discharge Diagnosis (Prints w/discharge instructions): Injury of femoral artery/pseudoaneurysm with right groin hematoma Time spent for discharge: 35 mins Core Measure Documentation - Palliative Care Palliative Care/ Comfort Measures: Not Applicable - Core Measures Any of the following diagnoses?: none Exam - Physical Exam Narrative exam: VITAL SIGNS: Reviewed. GENERAL: The patient appears normally developed, vital signs as documented. HEAD: No signs of head trauma. EYES: Pupils are equal. Extraocular motions intact. EARS: Hearing grossly intact. MOUTH: Oropharynx is normal. NECK: No adenopathy, no JVD. CHEST: Chest with clear breath sounds bilaterally. No wheezes, rales, or rhonchi. CARDIAC: Regular rate and rhythm. S1 and S2, without murmurs, gallops, or rubs. VASCULAR: No Edema. Peripheral pulses normal and equal in all extremities. ABDOMEN: Soft, non tender and non distended. No rebound or guarding, and no masses palpated. Bowel Sounds normal. MUSCULOSKELETAL: Left groin hematoma, pressure dressing still in place mild ecchymosis noted, tender to touch positive pedal pulses distal to the area good range of motion of all major joints. Extremities without clubbing, cyanosis or edema. Moves lower extremities NEUROLOGIC EXAM: Alert and oriented x 3 No focal sensory or strength deficits. Speech normal. Follows commands. PSYCHIATRIC: Mood normal. SKIN: detail exam as documented in skin assessment T - Constitutional Vitals: Temp Pulse Resp BP Pulse Ox 97.7 F 75 18 117/54 98 03/13/22 20:15 03/13/22 21:32 03/13/22 20:15 03/13/22 21:32 03/13/22 20:15 Plan Activity: advance as tolerated, fall precautions Diet: low fat Special Instructions: record daily weights, record daily BP diary, record blood sugar diary Plan of Treatment: Continue aspirin and Plavix. Follow-up with vascular for ultrasound. And follow-up with cardiology. Follow up with: PIPPA TYSON MD [Staff Physician] - 10 Days PRIMARY MD MARIANA [Primary Care Provider] - 3-5 Days CLARA ZEE MD [Staff Physician] - 03/17/22 8:30 am Prescriptions: Sennosides/Docusate Sodium [Docusate Sodium-Senna Tablet] 1 each PO DAILY 7 Days #7 oxyCODONE /ACETAMINOPHEN [Percocet 5/325 mg] 1 tab PO Q6H PRN #10 tablet PRN Reason: Pain, Moderate (4-6) Simethicone 125 mg PO Q12H 5 Days #10 cap
--- NOTE | 2022-03-15 08:01 | Progress Note ---
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 Patient has diminished cognition and provides minimal history. Patient is bedbound and nonambulatory and has a palliative performance score 30% and requires 6/6 assistance with activities of daily living. Patient history taken from EMS staff, ED staff, as well as patient daughter who is at bedside during exam and interview. As per daughter the patient has experienced right leg swelling and redness over the past 2 days with persistent and worsening symptoms over the same timeframe. In the ER the patient was found to be hypotensive with a systolic blood pressure in the 70s. Patient found to have encephalopathy, acute kidney injury, suspected right femoral artery injury, malnutrition, and debility, as well as clinical symptoms consistent with CHF decompensation. Patient admitted to telemetry due to increased risk of worsening symptoms after medical stabilization. Vascular surgery team consulted in ED. Cardiology team consulted in ED. Patient has diminished cognition but has a positive gag reflex and is able to pr otect his airway without difficulty at the time my evaluation. No reports of fever, chills, chest pain, palpitation, skin rash, recent contact, or known exposure to COVID-19. No prior admission for review. All medication listed at time of admission has been reconciled. Advanced care planning conducted in E. Echocardiogram 02/23/2022- LV chamber is moderately dilated. There is borderline LV hypertrophy. LV systolic function is severely reduced. The estimated left ventricle ejection fraction is 25-30%. Normal left atrial pressure with Grade I diastolic dysfunction. There is basal septal hypokinesis. There is mid anterior, mid septal, apical septal, apical lateral akinesis. There is normal right ventricular size, wall dimension, and systolic function. The aortic valve leaflet excursion is moderately reduced. There is mild aortic regurgitation. There is mild aortic valve stenosis. AV Mean gradient: 7.07 mmHg. AV Peak gradient: 11.6 mmHg. There is no mitral regurgitation. There is trace tricuspid regurgitation. There is no pulmonic regurgitation. No left ventricular thrombus noted with LV contrast images Cardiac cath 03/04/2022-left main patent, LAD proximal in-stent restenosis 100% with left to left collaterals feeding into the mid to ostial LAD, ramus has an ostial 99%. Circumflex, proximal patent mid 30%. OM1 patent, mild luminary irregularities, large caliber vessel. OM2 medium caliber was patent with left to right collaterals feeding into the mid to distal RCA. RCA comes to the left coronary cusp, proximal pain, mid 100% in-stent restenosis, severe LV dysfunction Outpatient medications: Aspirin, plavix, Losartan 100mg PO QD, atorvastatin 20mg PO QHs, Coreg 25mg PO BID, HCTZ 12.5mg PO QD 03/08/22-Patient seen at bedside with patient nurse present. He is status post left femoral cardiac cath with hematoma and pressure dressing present. No evidence of bleeding noted on the dressing. Bilateral pedal pulses positive. I reviewed lab, medication record, and vital signs. H&H 5.8 today. Patient is typed and crossed for 2 units packed red blood cells. Blood pressure 94/54. 250 normal saline bolus x1. O2 sat 90 to 95%. Patient on continuous monitor and oxygen 2 L nasal cannula till completion of blood transfusion. I reviewed plan of care with the attending. 03/09: Vascular input is appreciated patient continues on pressure dressing for noted pseudoaneurysm with complicated by right groin hematoma. Patient required transfusion of 2 unit packed red blood cell with appropriate response of hemoglobin today. Lasix was also given to prevent fluid overload considering patient's ejection fraction. Awaiting wound care evaluation as vascular notes that" and for patient to follow-up in 2 weeks with vascular for arterial ultrasound Will need wound care for the right thigh. Will need wound care for the skin breakdown and blistering. This will need to be a priority of the care for the next few weeks. Recommend wound care consult with followup at wound care center. Patient maintains good pulses distal to the site. Renal function had gone up to 2 we will await repeat study today. Anticipate discharge in a.m. following wound care evaluation. And if cleared by cardiology. 03/11: Patient seen and examined, no new complaints, awaiting placement. Continue current management. creatinine improving some 03/12: Patient seen and examined resting carefully. Continue awaiting placement. Wound care input noted on verbal discussion they are also supposed to contact vascular physician to understand any other requirement and address with the patient. 03/13: Patient was tested for COVID-19 for screening on placement came back posit quyen. Patient does not have any respiratory symptoms at this time. Hemoglobin remained stable. Respiratory status intact. We will continue to monitor while awaiting placement. 03/14: Patient remains clinically stable, H/H stable, MOVING ALL EXT. Pulses noted and palpable. Awaiting authorization. 03/15: Remains clinically stable. Awaiting auth. (1) Injury of femoral artery/pseudoaneurysm with right groin hematoma Current Visit: Yes Status: Acute Plan to address problem: Vascular surgery team consulted, right lower extremity Doppler, apply pressure dressing to right lower extremity, (2) CHF (congestive heart failure)/ischemic cardiomyopathy Current Visit: Yes Status: Acute Qualifiers: Heart failure type: systolic Heart failure chronicity: acute on chronic Qualified Code(s): I50.23 - Acute on chronic systolic (congestive) heart failure Plan to address problem: Strict I's/O, monitor urine output every shift, daily weight, afterload reduction, blood pressure control, supplemental oxygen, cardiology team consul carlos. (3) ALEXIS (acute kidney injury) secondary to vasomotor nephropathy Current Visit: Yes Status: Acute Plan to address problem: Monitor urine output every shift, daily weight, monitor fluid balance, (4) Seizure disorder Current Visit: Yes Status: Acute Plan to address problem: Continue antiepileptic therapy, supportive care. (5) Metabolic encephalopathy Current Visit: Yes Status: Acute Plan to address problem: Neuro check, seizure precautions, supportive care, aspiration precautions, fall precautions. (6) Malnutrition Current Visit: Yes Status: Acute Qualifiers: Malnutrition type: protein-calorie malnutrition Protein-calorie malnutrition severity: moderate Qualified Code(s): E44.0 - Moderate protein- calorie malnutrition Plan to address problem: Encourage increased protein intake when awake and alert only, dietary suppl ementation. (7) Vascular dementia/CVA per history Current Visit: Yes Status: Acute Qualifiers: Dementia behavioral disturbance: without behavioral disturbance Qualified Code(s): F01.50 - Vascular dementia without behavioral disturbance Plan to address problem: Verbal prompting, verbal redirection, benzodiazepine therapy as clinically indicated. (8) Cerebral atherosclerosis Current Visit: Yes Status: Acute Plan to address problem: Risk factor reduction, antiplatelet therapy, supportive care. (9) Diabetes melitis Current Visit: Yes Status: Acute Plan to address problem: Consistent carbohydrate diet, Accu-Chek, insulin protocol, hypoglycemia protocol (10) Hyperlipidemia Current Visit: Yes Status: Acute Qualifiers: Hyperlipidemia type: mixed hyperlipidemia Qualified Code(s): E78.2 - Mixed hyperlipidemia Plan to address problem: Statin therapy, supportive care. (11) Hypertension Current Visit: Yes Status: Acute Plan to address problem: Monitor blood pressure occasionally. Patient currently hypotensive. Hold antihypertensive therapy for systolic blood pressure less than equal to 110 mmHg. (12) Acute blood loss anemia (13) COVID-19 positive (14) DVT prophylaxis Current Visit: Yes Status: Acute Plan to address problem: SCD to bilateral lower extremities while in bed (15) Advance care planning Current Visit: Yes Status: Acute Plan to address problem: Disease education conducted, care plan discussed, diagnoses discussed, prognosis discussed, patient is full code. Patient family acknowledged understanding and agreement with care plan, +30 minutes. (15) Preventative health care Current Visit: Yes Status: Acute Plan to address problem: Patient family counseled regarding home safety, outpatient follow-up with primary care physician for all age and risk factor appropriate screening test. +30 minutes. Disposition Plan: [facility], pending auth Total Time Spent with Patient (Minutes): 35 History Interval history: No acute complaints on encounter. Hospitalist Physical - Physical exam Narrative exam: VITAL SIGNS: Reviewed. GENERAL: The patient appears normally developed, vital signs as documented. HEAD: No signs of head trauma. EYES: Pupils are equal. Extraocular motions intact. EARS: Hearing grossly intact. MOUTH: Oropharynx is normal. NECK: No adenopathy, no JVD. CHEST: Chest with clear breath sounds bilaterally. No wheezes, rales, or rhonchi. CARDIAC: Regular rate and rhythm. S1 and S2, without murmurs, gallops, or rubs. VASCULAR: No Edema. Peripheral pulses normal and equal in all extremities. ABDOMEN: Soft, non tender and non distended. No rebound or guarding, and no masses palpated. Bowel Sounds normal. MUSCULOSKELETAL: Left groin hematoma, pressure dressing still in place mild ecchymosis noted, tender to touch positive pedal pulses distal to the area good range of motion of all major joints. Extremities without clubbing, cyanosis or edema. Moves lower extremities NEUROLOGIC EXAM: Alert and oriented x 3 No focal sensory or strength deficits. Speech normal. Follows commands. PSYCHIATRIC: Mood normal. SKIN: detail exam as documented in skin assessment - Constitutional Vitals: Temp Pulse Resp BP Pulse Ox 97.7 F 81 18 123/66 96 03/13/22 20:15 03/14/22 23:16 03/14/22 07:00 03/14/22 23:16 03/14/22 07:00 General appearance: Present: mild distress Results - Labs CBC & Chem 7: 03/13/22 05:49 03/13/22 05:49 Labs: Laboratory Last Values WBC 10.1 K/mm3 (4.5-11.0) 03/13/22 05:49 RBC 3.36 M/mm3 (3.65-5.03) L 03/13/22 05:49 Hgb 10.1 gm/dl (11.8-15.2) L 03/13/22 05:49 Hct 31.3 % (35.5-45.6) L 03/13/22 05:49 MCV 93 fl (84-94) 03/13/22 05:49 MCH 30 pg (28-32) 03/13/22 05:49 MCHC 32 % (32-34) 03/13/22 05:49 RDW 15.4 % (13.2-15.2) H 03/13/22 05:49 Plt Count 359 K/mm3 (140-440) 03/13/22 05:49 Lymph % (Auto) 11.0 % (13.4-35.0) L 03/11/22 09:19 [place] % (Auto) 9.1 % (0.0-7.3) H 03/11/22 09:19 Eos % (Auto) 4.7 % (0.0-4.3) H 03/11/22 09:19 Baso % (Auto) 0.5 % (0.0-1.8) 03/11/22 09:19 Lymph # (Auto) 1.2 K/mm3 (1.2-5.4) 03/11/22 09:19 [place] # (Auto) 1.0 K/mm3 (0.0-0.8) H 03/11/22 09:19 Eos # (Auto) 0.5 K/mm3 (0.0-0.4) H 03/11/22 09:19 Baso # (Auto) 0.1 K/mm3 (0.0-0.1) 03/11/22 09:19 Seg Neutrophils % 74.7 % (40.0-70.0) H 03/11/22 09:19 Seg Neutrophils # 8.1 K/mm3 (1.8-7.7) H 03/11/22 09:19 Sodium 140 mmol/L (137-145) 03/13/22 05:49 Potassium 4.6 mmol/L (3.6-5.0) 03/13/22 05:49 Chloride 107.1 mmol/L (98-107) H 03/13/22 05:49 Carbon Dioxide 23 mmol/L (22-30) 03/13/22 05:49 Anion Gap 15 mmol/L 03/13/22 05:49 BUN 26 mg/dL (9-20) H 03/13/22 05:49 Creatinine 1.4 mg/dL (0.8-1.3) H 03/13/22 05:49 Estimated GFR 49 ml/min 03/13/22 05:49 BUN/Creatinine Ratio 19 % 03/13/22 05:49 Glucose 95 mg/dL (75-100) 03/13/22 05:49 POC Glucose 96 mg/dL (70-105) 03/15/22 07:08 Hemoglobin A1c < 4.0 % (4-6) L 03/08/22 14:25 Calcium 8.3 mg/dL (8.4-10.2) L 03/13/22 05:49 SARS-CoV-2 (PCR) Positive (Negative) A 03/12/22 10:40 Blood Type A POSITIVE 03/08/22 14:00 Antibody Screen Negative 03/08/22 14:00 Crossmatch See Detail 03/08/22 14:00 Win/IV: Voiding Method Condom Catheter Active Medications - Current Medications Current Medications: Generic Name Dose Route Start Last Admin Trade Name Freq PRN Reason Stop Dose Admin Acetaminophen 650 mg 03/07/22 11:54 03/09/22 11:22 Acetaminophen 325 Mg Tab PO 650 mg Q4H PRN Administration Pain MILD(1-3)/Fever >100.5/[place] Albuterol 2.5 mg 03/07/22 11:54 Albuterol 2.5 Mg/3 Ml Nebu IH Q4HRT PRN Shortness Of Breath Allopurinol 100 mg 03/08/22 10:00 03/14/22 10:34 Allopurinol 100 Mg Tab PO 100 mg QDAY REID Administration Aspirin 81 mg 03/08/22 10:00 03/14/22 10:33 Aspirin 81 Mg Tab Chew PO 81 mg QDAY REID Administration Atorvastatin Calcium 20 mg 03/07/22 22:00 03/14/22 23:16 Atorvastatin 20 Mg Tab PO 20 mg QHS REID Administration Carvedilol 25 mg 03/10/22 22:00 03/14/22 23:16 Carvedilol 25 Mg Tab PO 25 mg BID REID Administration Clopidogrel Bisulfate 75 mg 03/08/22 10:00 03/14/22 10:34 Clopidogrel 75 Mg Tab PO 75 mg QDAY REID Administration Dextrose 50 ml 03/07/22 11:58 Dextrose 50% In Water (25gm) 50 Ml Syringe IV Q30MIN PRN Hypoglycemia Protocol Famotidine 20 mg 03/08/22 10:00 03/14/22 10:33 Famotidine 10 Mg Tab PO 20 mg DAILY REID Administration Heparin Sodium (Porcine) 5,000 unit 03/08/22 12:00 03/14/22 22:17 Heparin 5,000 Unit/1 Ml Vial SUB-Q 5,000 unit Q12HR REID Administration Hydrochlorothiazide 12.5 mg 03/10/22 11:00 03/14/22 10:34 Hydrochlorothiazide 12.5 Mg Cap PO 12.5 mg QDAY REID Administration Hydromorphone HCl 0.5 mg 03/07/22 11:54 03/10/22 11:58 Hydromorphone 0.5 Mg/0.5 Ml Inj IV 0.5 mg Q3H PRN Administration Pain , Severe (7-10) Sodium Chloride 1,000 mls @ 42 mls/hr 03/07/22 12:00 03/11/22 23:55 Nacl 0.9% 1000 Ml IV 42 mls/hr DIRECT REID Administration Insulin Human Lispro 0 unit 03/07/22 16:30 03/14/22 22:16 Insulin Lispro 100 Unit/Ml SUB-Q Not Given ACHS REID Protocol Ketoconazole 1 applic 03/08/22 10:00 03/14/22 10:35 Ketoconazole 2% Cream 15 Gm TP 1 applic QDAY REDI Administration Losartan Potassium 100 mg 03/10/22 11:00 03/14/22 10:34 Losartan 50 Mg Tab PO 100 mg QDAY REID Administration Metoclopramide HCl 5 mg 03/08/22 09:30 Metoclopramide 10 Mg Tab PO Q6H PRN Nausea And Vomiting Ondansetron HCl 4 mg 03/08/22 09:30 Ondansetron 4 Mg/2 Ml Inj IV Q8H PRN Nausea And Vomiting Oxycodone/Acetaminophen 1 tab 03/07/22 11:54 03/11/22 23:55 Oxycodone /Acetaminophen 5-325mg Tab PO 1 tab Q6H PRN Administration Pain, Moderate (4-6) Phenytoin 100 mg 03/07/22 22:00 03/14/22 23:15 Phenytoin 100 Mg Capsule.Er PO 100 mg BID REID Administration Senna 8.6 mg 03/08/22 10:00 Sennosides 8.6 Mg Tab PO Q12HR PRN Constipation Sodium Chloride 10 ml 03/07/22 22:00 03/14/22 23:18 Sodium Chloride 0.9% 10 Ml Flush Syringe IV 10 ml BID REID Administration Sodium Chloride 10 ml 03/07/22 11:54 Sodium Chloride 0.9% 10 Ml Flush Syringe IV PRN PRN LINE FLUSH Nutrition/Malnutrition Assess - Dietary Evaluation Nutrition/Malnutrition Findings: Nutrition Notes Start: 03/08/22 17:41 Freq: Status: Active Protocol: Document 03/09/22 14:00 AYDEN (Rec: 03/09/22 14:09 AYDEN [id number]) Nutrition Notes Initial or Follow up Brief Note Current Diagnosis Acute Kidney Injury,Coronary Artery Disease,Diabetes, Hypertension,Malnutrition, Stroke,Hyperlipidemia Other Pertinent Diagnosis Pseudoaneurysm/Hematoma s/p Femoral Artery Injury, Metabolic Encephalopathy Current Diet Cardiac/Consistent Carbohydrates Diet+D Suppl ( since L 03/09). Height 5 ft 8 in Weight 72.575 kg Rogers Body Weight (kg) 70.00 BMI 24.3 Weight change and time frame No body weight change reported in 1 day. Weight Status Appropriate Subjective/Other Information RD consult for routine F/U on dietary advancement. Pt's PO intake of meals has been Poor (25%) but well tolerated, according to ADL notes. Pt is on Room Air, O2 saturation @ 98%, according to Physical Assessment History notes. Percent of energy/protein needs met: Prescribed Cardiac/Consistent Carbohydrates Diet provides for energy/protein needs (1, 977 Kcal/86 g) during LOS. #1 Nutrition Diagnosis Increased nutrient needs ( specify in comment below) Comments: Protein to support wound healing processes. Diagnosis Progress(for reassessment Continues documentation) Is patient on ventilator? No Is Patient Ambulatory and/or Out of Bed No REE-([place]-St. Jeor-confined to bed) 1716.816 Kcal/Kg value to use for calculation 26 Approximate Energy Requirements Using 1887 kcal/Kg Calculation Used for Recommendations Kcal/kg Additional Notes Protein: 1.25-1.5 g/Kg ABW; 91 -110 g/day. Fluids: 1 ml/Kcal, or as per MD. Nutrition Intervention Change Diet Order: Continue Cardiac/Consistent Carbohydrates Diet. Add Supplement/Snack (indicate name/kcal Continue 28.8 g pkt. Fabio; /protein ) BID. Provides kCal: 190 Provides Protein (gm) 5 Goal #1 Support, through dietary supplementation, wound healing processes during LOS. Goal #2 Adjust the dietary intervention to better serve Pt's needs and clinical conditions during LOS. Follow-Up By: 03/16/22 Additional Comments Continue monitoring food tolerance, %PO intake of meals , and BM.
[2022-03-15] MEDS: carvediloL 25 MG TAB PO SCH ×2 (09:56→21:28)
[2022-03-15] MEDS: HEPARIN 5,000 UNIT/1 ML VIAL SUB-Q SCH ×2 (09:56→21:29)
[2022-03-15] MEDS: hydroCHLOROthiazide 12.5 MG CAP PO SCH (09:56)
[2022-03-15] MEDS: ASPIRIN 81 MG TAB CHEW PO SCH (09:56)
[2022-03-15] MEDS: CLOPIDOGREL 75 MG TAB PO SCH (09:56)
[2022-03-15] MEDS: allopurinoL 100 MG TAB PO SCH (09:56)
[2022-03-15] MEDS: FAMOTIDINE 10 MG TAB PO SCH (09:56)
[2022-03-15] MEDS: PHENYTOIN 100 MG CAPSULE.ER PO SCH ×2 (09:56→21:29)
[2022-03-15] MEDS: INSULIN LISPRO 100 UNIT/ML SUB-Q SCH ×3 (10:06→21:55)
[2022-03-15] MEDS: LOSARTAN 50 MG TAB PO SCH (10:06)
[2022-03-15] MEDS: KETOCONAZOLE 2% CREAM 15 GM TP SCH (18:06)
--- NOTE | 2022-03-16 07:53 | Progress Note ---
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 Patient has diminished cognition and provides minimal history. Patient is bedbound and nonambulatory and has a palliative performance score 30% and requires 6/6 assistance with activities of daily living. Patient history taken from EMS staff, ED staff, as well as patient daughter who is at bedside during exam and interview. As per daughter the patient has experienced right leg swelling and redness over the past 2 days with persistent and worsening symptoms over the same timeframe. In the ER the patient was found to be hypotensive with a systolic blood pressure in the 70s. Patient found to have encephalopathy, acute kidney injury, suspected right femoral artery injury, malnutrition, and debility, as well as clinical symptoms consistent with CHF decompensation. Patient admitted to telemetry due to increased risk of worsening symptoms after medical stabilization. Vascular surgery team consulted in ED. Cardiology team consulted in ED. Patient has diminished cognition but has a positive gag reflex and is able to pr otect his airway without difficulty at the time my evaluation. No reports of fever, chills, chest pain, palpitation, skin rash, recent contact, or known exposure to COVID-19. No prior admission for review. All medication listed at time of admission has been reconciled. Advanced care planning conducted in E. Echocardiogram 02/23/2022- LV chamber is moderately dilated. There is borderline LV hypertrophy. LV systolic function is severely reduced. The estimated left ventricle ejection fraction is 25-30%. Normal left atrial pressure with Grade I diastolic dysfunction. There is basal septal hypokinesis. There is mid anterior, mid septal, apical septal, apical lateral akinesis. There is normal right ventricular size, wall dimension, and systolic function. The aortic valve leaflet excursion is moderately reduced. There is mild aortic regurgitation. There is mild aortic valve stenosis. AV Mean gradient: 7.07 mmHg. AV Peak gradient: 11.6 mmHg. There is no mitral regurgitation. There is trace tricuspid regurgitation. There is no pulmonic regurgitation. No left ventricular thrombus noted with LV contrast images Cardiac cath 03/04/2022-left main patent, LAD proximal in-stent restenosis 100% with left to left collaterals feeding into the mid to ostial LAD, ramus has an ostial 99%. Circumflex, proximal patent mid 30%. OM1 patent, mild luminary irregularities, large caliber vessel. OM2 medium caliber was patent with left to right collaterals feeding into the mid to distal RCA. RCA comes to the left coronary cusp, proximal pain, mid 100% in-stent restenosis, severe LV dysfunction Outpatient medications: Aspirin, plavix, Losartan 100mg PO QD, atorvastatin 20mg PO QHs, Coreg 25mg PO BID, HCTZ 12.5mg PO QD 03/08/22-Patient seen at bedside with patient nurse present. He is status post left femoral cardiac cath with hematoma and pressure dressing present. No evidence of bleeding noted on the dressing. Bilateral pedal pulses positive. I reviewed lab, medication record, and vital signs. H&H 5.8 today. Patient is typed and crossed for 2 units packed red blood cells. Blood pressure 94/54. 250 normal saline bolus x1. O2 sat 90 to 95%. Patient on continuous monitor and oxygen 2 L nasal cannula till completion of blood transfusion. I reviewed plan of care with the attending. 03/09: Vascular input is appreciated patient continues on pressure dressing for noted pseudoaneurysm with complicated by right groin hematoma. Patient required transfusion of 2 unit packed red blood cell with appropriate response of hemoglobin today. Lasix was also given to prevent fluid overload considering patient's ejection fraction. Awaiting wound care evaluation as vascular notes that" and for patient to follow-up in 2 weeks with vascular for arterial ultrasound Will need wound care for the right thigh. Will need wound care for the skin breakdown and blistering. This will need to be a priority of the care for the next few weeks. Recommend wound care consult with followup at wound care center. Patient maintains good pulses distal to the site. Renal function had gone up to 2 we will await repeat study today. Anticipate discharge in a.m. following wound care evaluation. And if cleared by cardiology. 03/11: Patient seen and examined, no new complaints, awaiting placement. Continue current management. creatinine improving some 03/12: Patient seen and examined resting carefully. Continue awaiting placement. Wound care input noted on verbal discussion they are also supposed to contact vascular physician to understand any other requirement and address with the patient. 03/13: Patient was tested for COVID-19 for screening on placement came back posit quyen. Patient does not have any respiratory symptoms at this time. Hemoglobin remained stable. Respiratory status intact. We will continue to monitor while awaiting placement. 03/14: Patient remains clinically stable, H/H stable, MOVING ALL EXT. Pulses noted and palpable. Awaiting authorization. 03/15: Remains clinically stable. Awaiting auth. 03/16: Clinically stable. Awaiting auth. Plan to discharge to [facility]. COVID PCR positive on 03/12, can d/c isolation on 03/17. (1) Injury of femoral artery/pseudoaneurysm with right groin hematoma Current Visit: Yes Status: Acute Plan to address problem: Vascular surgery team consulted, right lower extremity Doppler, apply pressure dressing to right lower extremity, (2) CHF (congestive heart failure)/ischemic cardiomyopathy Current Visit: Yes Status: Acute Qualifiers: Heart failure type: systolic Heart failure chronicity: acute on chronic Qualified Code(s): I50.23 - Acute on chronic systolic (congestive) heart failure Plan to address problem: Strict I's/O, monitor urine output every shift, daily weight, afterload reduction, blood pressure control, supplemental oxygen, cardiology team consulted. (3) ALEXIS (acute kidney injury) secondary to vasomotor nephropathy Current Visit: Yes Status: Acute Plan to address problem: Monitor urine output every shift, daily weight, monitor fluid balance, (4) Seizure disorder Current Visit: Yes Status: Acute Plan to address problem: Continue antiepileptic therapy, supportive care. (5) Metabolic encephalopathy Current Visit: Yes Status: Acute Plan to address problem: Neuro check, seizure precautions, supportive care, aspiration precautions, fall precautions. (6) Malnutrition Current Visit: Yes Status: Acute Qualifiers: Malnutrition type: protein-calorie malnutrition Protein-calorie malnutrition severity: moderate Qualified Code(s): E44.0 - Moderate protein- calorie malnutrition Plan to address problem: Encourage increased protein intake when awake and alert only, dietary supplementation. (7) Vascular dementia/CVA per history Current Visit: Yes Status: Acute Qualifiers: Dementia behavioral disturbance: without behavioral disturbance Qualified Code(s): F01.50 - Vascular dementia without behavioral disturbance Plan to address problem: Verbal prompting, verbal redirection, benzodiazepine therapy as clinically indicated. (8) Cerebral atherosclerosis Current Visit: Yes Status: Acute Plan to address problem: Risk factor reduction, antiplatelet therapy, supportive care. (9) Diabetes melitis Current Visit: Yes Status: Acute Plan to address problem: Consistent carbohydrate diet, Accu-Chek, insulin protocol, hypoglycemia protocol (10) Hyperlipidemia Current Visit: Yes Status: Acute Qualifiers: Hyperlipidemia type: mixed hyperlipidemia Qualified Code(s): E78.2 - Mixed hyperlipidemia Plan to address problem: Statin therapy, supportive care. (11) Hypertension Current Visit: Yes Status: Acute Plan to address problem: Monitor blood pressure occasionally. Patient currently hypotensive. Hold antihypertensive therapy for systolic blood pressure less than equal to 110 mmHg. (12) Acute blood loss anemia (13) COVID-19 positive (14) DVT prophylaxis Current Visit: Yes Status: Acute Plan to address problem: SCD to bilateral lower extremities while in bed (15) Advance care planning Current Visit: Yes Status: Acute Plan to address problem: Disease education conducted, care plan discussed, diagnoses discussed, prognosis discussed, patient is full code. Patient family acknowledged understanding and agreement with care plan, +30 minutes. (15) Preventative health care Current Visit: Yes Status: Acute Plan to address problem: Patient family counseled regarding home safety, outpatient follow-up with primary care physician for all age and risk factor appropriate screening test. +30 minutes. Disposition Plan: med/surg currently, discharge pending placement Total Time Spent with Patient (Minutes): 35 History Interval history: No acute complaints on encounter. Hospitalist Physical - Physical exam Narrative exam: VITAL SIGNS: Reviewed. GENERAL: The patient appears normally developed, vital signs as documented. HEAD: No signs of head trauma. EYES: Pupils are equal. Extraocular motions intact. EARS: Hearing grossly intact. MOUTH: Oropharynx is normal. NECK: No adenopathy, no JVD. CHEST: Chest with clear breath sounds bilaterally. No wheezes, rales, or rhonchi. CARDIAC: Regular rate and rhythm. S1 and S2, without murmurs, gallops, or rubs. VASCULAR: No Edema. Peripheral pulses normal and equal in all extremities. ABDOMEN: Soft, non tender and non distended. No rebound or guarding, and no masses palpated. Bowel Sounds normal. MUSCULOSKELETAL: Left groin hematoma, pressure dressing still in place mild ecchymosis noted, tender to touch positive pedal pulses distal to the area good range of motion of all major joints. Extremities without clubbing, cyanosis or edema. Moves lower extremities NEUROLOGIC EXAM: Alert and oriented x 3 No focal sensory or strength deficits. Speech normal. Follows commands. PSYCHIATRIC: Mood normal. SKIN: detail exam as documented in skin assessment - Constitutional Vitals: Temp Pulse Resp BP Pulse Ox 97.7 F 85 18 134/69 97 03/13/22 20:15 03/15/22 21:28 03/15/22 19:00 03/15/22 21:28 03/15/22 19:00 General appearance: Present: mild distress Results - Labs CBC & Chem 7: 03/13/22 05:49 03/13/22 05:49 Labs: Laboratory Last Values WBC 10.1 K/mm3 (4.5-11.0) 03/13/22 05:49 RBC 3.36 M/mm3 (3.65-5.03) L 03/13/22 05:49 Hgb 10.1 gm/dl (11.8-15.2) L 03/13/22 05:49 Hct 31.3 % (35.5-45.6) L 03/13/22 05:49 MCV 93 fl (84-94) 03/13/22 05:49 MCH 30 pg (28-32) 03/13/22 05:49 MCHC 32 % (32-34) 03/13/22 05:49 RDW 15.4 % (13.2-15.2) H 03/13/22 05:49 Plt Count 359 K/mm3 (140-440) 03/13/22 05:49 Lymph % (Auto) 11.0 % (13.4-35.0) L 03/11/22 09:19 [place] % (Auto) 9.1 % (0.0-7.3) H 03/11/22 09:19 Eos % (Auto) 4.7 % (0.0-4.3) H 03/11/22 09:19 Baso % (Auto) 0.5 % (0.0-1.8) 03/11/22 09:19 Lymph # (Auto) 1.2 K/mm3 (1.2-5.4) 03/11/22 09:19 [place] # (Auto) 1.0 K/mm3 (0.0-0.8) H 03/11/22 09:19 Eos # (Auto) 0.5 K/mm3 (0.0-0.4) H 03/11/22 09:19 Baso # (Auto) 0.1 K/mm3 (0.0-0.1) 03/11/22 09:19 Seg Neutrophils % 74.7 % (40.0-70.0) H 03/11/22 09:19 Seg Neutrophils # 8.1 K/mm3 (1.8-7.7) H 03/11/22 09:19 Sodium 140 mmol/L (137-145) 03/13/22 05:49 Potassium 4.6 mmol/L (3.6-5.0) 03/13/22 05:49 Chloride 107.1 mmol/L (98-107) H 03/13/22 05:49 Carbon Dioxide 23 mmol/L (22-30) 03/13/22 05:49 Anion Gap 15 mmol/L 03/13/22 05:49 BUN 26 mg/dL (9-20) H 03/13/22 05:49 Creatinine 1.4 mg/dL (0.8-1.3) H 03/13/22 05:49 Estimated GFR 49 ml/min 03/13/22 05:49 BUN/Creatinine Ratio 19 % 03/13/22 05:49 Glucose 95 mg/dL (75-100) 03/13/22 05:49 POC Glucose 106 mg/dL (70-105) H 03/16/22 07:12 Hemoglobin A1c < 4.0 % (4-6) L 03/08/22 14:25 Calcium 8.3 mg/dL (8.4-10.2) L 03/13/22 05:49 SARS-CoV-2 (PCR) Positive (Negative) A 03/12/22 10:40 Blood Type A POSITIVE 03/08/22 14:00 Antibody Screen Negative 03/08/22 14:00 Crossmatch See Detail 03/08/22 14:00 Win/IV: Voiding Method Condom Catheter Active Medications - Current Medications Current Medications: Generic Name Dose Route Start Last Admin Trade Name Freq PRN Reason Stop Dose Admin Acetaminophen 650 mg 03/07/22 11:54 03/09/22 11:22 Acetaminophen 325 Mg Tab PO 650 mg Q4H PRN Administration Pain MILD(1-3)/Fever >100.5/[place] Albuterol 2.5 mg 03/07/22 11:54 Albuterol 2.5 Mg/3 Ml Nebu IH Q4HRT PRN Shortness Of Breath Allopurinol 100 mg 03/08/22 10:00 03/15/22 09:56 Allopurinol 100 Mg Tab PO 100 mg QDAY REID Administration Aspirin 81 mg 03/08/22 10:00 03/15/22 09:56 Aspirin 81 Mg Tab Chew PO 81 mg QDAY REID Administration Atorvastatin Calcium 20 mg 03/07/22 22:00 03/15/22 21:29 Atorvastatin 20 Mg Tab PO 20 mg QHS REID Administration Carvedilol 25 mg 03/10/22 22:00 03/15/22 21:28 Carvedilol 25 Mg Tab PO 25 mg BID REID Administration Clopidogrel Bisulfate 75 mg 03/08/22 10:00 03/15/22 09:56 Clopidogrel 75 Mg Tab PO 75 mg QDAY REID Administration Dextrose 50 ml 03/07/22 11:58 Dextrose 50% In Water (25gm) 50 Ml Syringe IV Q30MIN PRN Hypoglycemia Protocol Famotidine 20 mg 03/08/22 10:00 03/15/22 09:56 Famotidine 10 Mg Tab PO 20 mg DAILY REID Administration Heparin Sodium (Porcine) 5,000 unit 03/08/22 12:00 03/15/22 21:29 Heparin 5,000 Unit/1 Ml Vial SUB-Q 5,000 unit Q12HR REID Administration Hydrochlorothiazide 12.5 mg 03/10/22 11:00 03/15/22 09:56 Hydrochlorothiazide 12.5 Mg Cap PO 12.5 mg QDAY REID Administration Hydromorphone HCl 0.5 mg 03/07/22 11:54 03/10/22 11:58 Hydromorphone 0.5 Mg/0.5 Ml Inj IV 0.5 mg Q3H PRN Administration Pain , Severe (7-10) Sodium Chloride 1,000 mls @ 42 mls/hr 03/07/22 12:00 03/11/22 23:55 Nacl 0.9% 1000 Ml IV 42 mls/hr DIRECT REID Administration Insulin Human Lispro 0 unit 03/07/22 16:30 03/15/22 21:55 Insulin Lispro 100 Unit/Ml SUB-Q 2 unit ACHS REID Administration Protocol Ketoconazole 1 applic 03/08/22 10:00 03/15/22 18:06 Ketoconazole 2% Cream 15 Gm TP 1 applic QDAY REID Administration Losartan Potassium 100 mg 03/10/22 11:00 03/15/22 10:06 Losartan 50 Mg Tab PO 100 mg QDAY REID Administration Metoclopramide HCl 5 mg 03/08/22 09:30 Metoclopramide 10 Mg Tab PO Q6H PRN Nausea And Vomiting Ondansetron HCl 4 mg 03/08/22 09:30 Ondansetron 4 Mg/2 Ml Inj IV Q8H PRN Nausea And Vomiting Oxycodone/Acetaminophen 1 tab 03/07/22 11:54 03/11/22 23:55 Oxycodone /Acetaminophen 5-325mg Tab PO 1 tab Q6H PRN Administration Pain, Moderate (4-6) Phenytoin 100 mg 03/07/22 22:00 03/15/22 21:29 Phenytoin 100 Mg Capsule.Er PO 100 mg BID REID Administration Senna 8.6 mg 03/08/22 10:00 Sennosides 8.6 Mg Tab PO Q12HR PRN Constipation Sodium Chloride 10 ml 03/07/22 22:00 03/15/22 21:30 Sodium Chloride 0.9% 10 Ml Flush Syringe IV 10 ml BID REID Administration Sodium Chloride 10 ml 03/07/22 11:54 Sodium Chloride 0.9% 10 Ml Flush Syringe IV PRN PRN LINE FLUSH Nutrition/Malnutrition Assess - Dietary Evaluation Nutrition/Malnutrition Findings: Nutrition Notes Start: 03/08/22 17:41 Freq: Status: Active Protocol: Document 03/09/22 14:00 AYDEN (Rec: 03/09/22 14:09 AYDEN [id number]) Nutrition Notes Initial or Follow up Brief Note Current Diagnosis Acute Kidney Injury,Coronary Artery Disease,Diabetes, Hypertension,Malnutrition, Stroke,Hyperlipidemia Other Pertinent Diagnosis Pseudoaneurysm/Hematoma s/p Femoral Artery Injury, Metabolic Encephalopathy Current Diet Cardiac/Consistent Carbohydrates Diet+D Suppl ( since L 03/09). Height 5 ft 8 in Weight 72.575 kg [place] Body Weight (kg) 70.00 BMI 24.3 Weight change and time frame No body weight change reported in 1 day. Weight Status Appropriate Subjective/Other Information RD consult for routine F/U on dietary advancement. Pt's PO intake of meals has been Poor (25%) but well tolerated, according to ADL notes. Pt is on Room Air, O2 saturation @ 98%, according to Physical Assessment History notes. Percent of energy/protein needs met: Prescribed Cardiac/Consistent Carbohydrates Diet provides for energy/protein needs (1, 977 Kcal/86 g) during LOS. #1 Nutrition Diagnosis Increased nutrient needs ( specify in comment below) Comments: Protein to support wound healing processes. Diagnosis Progress(for reassessment Continues documentation) Is patient on ventilator? No Is Patient Ambulatory and/or Out of Bed No REE-([facility]-confined to bed) 1716.816 Kcal/Kg value to use for calculation 26 Approximate Energy Requirements Using 1887 kcal/Kg Calculation Used for Recommendations Kcal/kg Additional Notes Protein: 1.25-1.5 g/Kg ABW; 91 -110 g/day. Fluids: 1 ml/Kcal, or as per MD. Nutrition Intervention Change Diet Order: Continue Cardiac/Consistent Carbohydrates Diet. Add Supplement/Snack (indicate name/kcal Continue 28.8 g pkt. Fabio; /protein ) BID. Provides kCal: 190 Provides Protein (gm) 5 Goal #1 Support, through dietary supplementation, wound healing processes during LOS. Goal #2 Adjust the dietary intervention to better serve Pt's needs and clinical conditions during LOS. Follow-Up By: 03/16/22 Additional Comments Continue monitoring food tolerance, %PO intake of meals , and BM.
[2022-03-16] MEDS: INSULIN LISPRO 100 UNIT/ML SUB-Q SCH ×4 (08:35→22:39)
[2022-03-16] MEDS: CLOPIDOGREL 75 MG TAB PO SCH (10:20)
[2022-03-16] MEDS: ASPIRIN 81 MG TAB CHEW PO SCH (10:20)
[2022-03-16] MEDS: hydroCHLOROthiazide 12.5 MG CAP PO SCH (10:20)
[2022-03-16] MEDS: FAMOTIDINE 10 MG TAB PO SCH (10:20)
[2022-03-16] MEDS: LOSARTAN 50 MG TAB PO SCH (10:20)
[2022-03-16] MEDS: oxyCODONE /ACETAMINOPHEN 5-325MG TAB PO PRN (10:20)
[2022-03-16] MEDS: allopurinoL 100 MG TAB PO SCH (10:20)
[2022-03-16] MEDS: PHENYTOIN 100 MG CAPSULE.ER PO SCH ×2 (10:21→22:39)
[2022-03-16] MEDS: carvediloL 25 MG TAB PO SCH ×2 (10:21→22:36)
[2022-03-16] MEDS: HEPARIN 5,000 UNIT/1 ML VIAL SUB-Q SCH ×2 (10:21→22:39)
[2022-03-16] MEDS: KETOCONAZOLE 2% CREAM 15 GM TP SCH (10:27)
[2022-03-16] MEDS: SODIUM CHLORIDE 0.9% 1000 ML 1,000 ML IV SCH (22:40)
--- NOTE | 2022-03-17 07:51 | Progress Note ---
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 Patient has diminished cognition and provides minimal history. Patient is bedbound and nonambulatory and has a palliative performance score 30% and requires 6/6 assistance with activities of daily living. Patient history taken from EMS staff, ED staff, as well as patient daughter who is at bedside during exam and interview. As per daughter the patient has experienced right leg swelling and redness over the past 2 days with persistent and worsening symptoms over the same timeframe. In the ER the patient was found to be hypotensive with a systolic blood pressure in the 70s. Patient found to have encephalopathy, acute kidney injury, suspected right femoral artery injury, malnutrition, and debility, as well as clinical symptoms consistent with CHF decompensation. Patient admitted to telemetry due to increased risk of worsening symptoms after medical stabilization. Vascular surgery team consulted in ED. Cardiology team consulted in ED. Patient has diminished cognition but has a positive gag reflex and is able to pr otect his airway without difficulty at the time my evaluation. No reports of fever, chills, chest pain, palpitation, skin rash, recent contact, or known exposure to COVID-19. No prior admission for review. All medication listed at time of admission has been reconciled. Advanced care planning conducted in E. Echocardiogram 02/23/2022- LV chamber is moderately dilated. There is borderline LV hypertrophy. LV systolic function is severely reduced. The estimated left ventricle ejection fraction is 25-30%. Normal left atrial pressure with Grade I diastolic dysfunction. There is basal septal hypokinesis. There is mid anterior, mid septal, apical septal, apical lateral akinesis. There is normal right ventricular size, wall dimension, and systolic function. The aortic valve leaflet excursion is moderately reduced. There is mild aortic regurgitation. There is mild aortic valve stenosis. AV Mean gradient: 7.07 mmHg. AV Peak gradient: 11.6 mmHg. There is no mitral regurgitation. There is trace tricuspid regurgitation. There is no pulmonic regurgitation. No left ventricular thrombus noted with LV contrast images Cardiac cath 03/04/2022-left main patent, LAD proximal in-stent restenosis 100% with left to left collaterals feeding into the mid to ostial LAD, ramus has an ostial 99%. Circumflex, proximal patent mid 30%. OM1 patent, mild luminary irregularities, large caliber vessel. OM2 medium caliber was patent with left to right collaterals feeding into the mid to distal RCA. RCA comes to the left coronary cusp, proximal pain, mid 100% in-stent restenosis, severe LV dysfunction Outpatient medications: Aspirin, plavix, Losartan 100mg PO QD, atorvastatin 20mg PO QHs, Coreg 25mg PO BID, HCTZ 12.5mg PO QD 03/08/22-Patient seen at bedside with patient nurse present. He is status post left femoral cardiac cath with hematoma and pressure dressing present. No evidence of bleeding noted on the dressing. Bilateral pedal pulses positive. I reviewed lab, medication record, and vital signs. H&H 5.8 today. Patient is typed and crossed for 2 units packed red blood cells. Blood pressure 94/54. 250 normal saline bolus x1. O2 sat 90 to 95%. Patient on continuous monitor and oxygen 2 L nasal cannula till completion of blood transfusion. I reviewed plan of care with the attending. 03/09: Vascular input is appreciated patient continues on pressure dressing for noted pseudoaneurysm with complicated by right groin hematoma. Patient required transfusion of 2 unit packed red blood cell with appropriate response of hemoglobin today. Lasix was also given to prevent fluid overload considering patient's ejection fraction. Awaiting wound care evaluation as vascular notes that" and for patient to follow-up in 2 weeks with vascular for arterial ultrasound Will need wound care for the right thigh. Will need wound care for the skin breakdown and blistering. This will need to be a priority of the care for the next few weeks. Recommend wound care consult with followup at wound care center. Patient maintains good pulses distal to the site. Renal function had gone up to 2 we will await repeat study today. Anticipate discharge in a.m. following wound care evaluation. And if cleared by cardiology. 03/11: Patient seen and examined, no new complaints, awaiting placement. Continue current management. creatinine improving some 03/12: Patient seen and examined resting carefully. Continue awaiting placement. Wound care input noted on verbal discussion they are also supposed to contact vascular physician to understand any other requirement and address with the patient. 03/13: Patient was tested for COVID-19 for screening on placement came back posit quyen. Patient does not have any respiratory symptoms at this time. Hemoglobin remained stable. Respiratory status intact. We will continue to monitor while awaiting placement. 03/14: Patient remains clinically stable, H/H stable, MOVING ALL EXT. Pulses noted and palpable. Awaiting authorization. 03/15: Remains clinically stable. Awaiting auth. 03/16: Clinically stable. Awaiting auth. Plan to discharge to [facility]. COVID PCR positive on 03/12, can d/c isolation on 03/17. 03/17: Clinically stable. Still waiting authorization for placement to [facility]. Rapid COVID ordered. Can DC COVID isolation as patient asymptomatic x5 days. (1) Injury of femoral artery/pseudoaneurysm with right groin hematoma Current Visit: Yes Status: Acute Plan to address problem: Vascular surgery team consulted, right lower extremity Doppler, apply pressure dressing to right lower extremity, (2) CHF (congestive heart failure)/ischemic cardiomyopathy Current Visit: Yes Status: Acute Qualifiers: Heart failure type: systolic Heart failure chronicity: acute on chronic Qualified Code(s): I50.23 - Acute on chronic systolic (congestive) heart failure Plan to address problem: Strict I's/O, monitor urine output every shift, daily weight, afterload reduction, blood pressure control, supplemental oxygen, cardiology team consulted. (3) ALEXIS (acute kidney injury) secondary to vasomotor nephropathy Current Visit: Yes Status: Acute Plan to address problem: Monitor urine output every shift, daily weight, monitor fluid balance, (4) Seizure disorder Current Visit: Yes Status: Acute Plan to address problem: Continue antiepileptic therapy, supportive care. (5) Metabolic encephalopathy Current Visit: Yes Status: Acute Plan to address problem: Neuro check, seizure precautions, supportive care, aspiration precautions, fall precautions. (6) Malnutrition Current Visit: Yes Status: Acute Qualifiers: Malnutrition type: protein-calorie malnutrition Protein-calorie malnutrition severity: moderate Qualified Code(s): E44.0 - Moderate protein- calorie malnutrition Plan to address problem: Encourage increased protein intake when awake and alert only, dietary supplementation. (7) Vascular dementia/CVA per history Current Visit: Yes Status: Acute Qualifiers: Dementia behavioral disturbance: without behavioral disturbance Qualified Code(s): F01.50 - Vascular dementia without behavioral disturbance Plan to address problem: Verbal prompting, verbal redirection, benzodiazepine therapy as clinically indicated. (8) Cerebral atherosclerosis Current Visit: Yes Status: Acute Plan to address problem: Risk factor reduction, antiplatelet therapy, supportive care. (9) Diabetes melitis Current Visit: Yes Status: Acute Plan to address problem: Consistent carbohydrate diet, Accu-Chek, insulin protocol, hypoglycemia protocol (10) Hyperlipidemia Current Visit: Yes Status: Acute Qualifiers: Hyperlipidemia type: mixed hyperlipidemia Qualified Code(s): E78.2 - Mixed hyperlipidemia Plan to address problem: Statin therapy, supportive care. (11) Hypertension Current Visit: Yes Status: Acute Plan to address problem: Monitor blood pressure occasionally. Patient currently hypotensive. Hold antihypertensive therapy for systolic blood pressure less than equal to 110 mmHg. (12) Acute blood loss anemia (13) COVID-19 positive (14) DVT prophylaxis Current Visit: Yes Status: Acute Plan to address problem: SCD to bilateral lower extremities while in bed (15) Advance care planning Current Visit: Yes Status: Acute Plan to address problem: Disease education conducted, care plan discussed, diagnoses discussed, prognosis discussed, patient is full code. Patient family acknowledged understanding and agreement with care plan, +30 minutes. (15) Preventative health care Current Visit: Yes Status: Acute Plan to address problem: Patient family counseled regarding home safety, outpatient follow-up with primary care physician for all age and risk factor appropriate screening test. +30 minutes. History Interval history: Seen and evaluated bedside. No acute complaints. Very pleasant. Hospitalist Physical - Physical exam Narrative exam: VITAL SIGNS: Reviewed. GENERAL: The patient appears normally developed, vital signs as documented. HEAD: No signs of head trauma. EYES: Pupils are equal. Extraocular motions intact. EARS: Hearing grossly intact. MOUTH: Oropharynx is normal. NECK: No adenopathy, no JVD. CHEST: Chest with clear breath sounds bilaterally. No wheezes, rales, or rhonchi. CARDIAC: Regular rate and rhythm. S1 and S2, without murmurs, gallops, or rubs. VASCULAR: No Edema. Peripheral pulses normal and equal in all extremities. ABDOMEN: Soft, non tender and non distended. No rebound or guarding, and no masses palpated. Bowel Sounds normal. MUSCULOSKELETAL: Left groin hematoma, pressure dressing still in place mild ecchymosis noted, tender to touch positive pedal pulses distal to the area good range of motion of all major joints. Extremities without clubbing, cyanosis or edema. Moves lower extremities NEUROLOGIC EXAM: Alert and oriented x 3 No focal sensory or strength deficits. Speech normal. Follows commands. PSYCHIATRIC: Mood normal. SKIN: detail exam as documented in skin assessment - Constitutional Vitals: Temp Pulse Resp BP Pulse Ox 99 F 94 H 18 108/56 98 03/17/22 04:57 03/17/22 04:57 03/17/22 04:57 03/17/22 04:57 03/17/22 04:57 General appearance: Present: mild distress Results - Labs CBC & Chem 7: 03/13/22 05:49 03/13/22 05:49 Labs: Laboratory Last Values WBC 10.1 K/mm3 (4.5-11.0) 03/13/22 05:49 RBC 3.36 M/mm3 (3.65-5.03) L 03/13/22 05:49 Hgb 10.1 gm/dl (11.8-15.2) L 03/13/22 05:49 Hct 31.3 % (35.5-45.6) L 03/13/22 05:49 MCV 93 fl (84-94) 03/13/22 05:49 MCH 30 pg (28-32) 03/13/22 05:49 MCHC 32 % (32-34) 03/13/22 05:49 RDW 15.4 % (13.2-15.2) H 03/13/22 05:49 Plt Count 359 K/mm3 (140-440) 03/13/22 05:49 Lymph % (Auto) 11.0 % (13.4-35.0) L 03/11/22 09:19 [place] % (Auto) 9.1 % (0.0-7.3) H 03/11/22 09:19 Eos % (Auto) 4.7 % (0.0-4.3) H 03/11/22 09:19 Baso % (Auto) 0.5 % (0.0-1.8) 03/11/22 09:19 Lymph # (Auto) 1.2 K/mm3 (1.2-5.4) 03/11/22 09:19 [place] # (Auto) 1.0 K/mm3 (0.0-0.8) H 03/11/22 09:19 Eos # (Auto) 0.5 K/mm3 (0.0-0.4) H 03/11/22 09:19 Baso # (Auto) 0.1 K/mm3 (0.0-0.1) 03/11/22 09:19 Seg Neutrophils % 74.7 % (40.0-70.0) H 03/11/22 09:19 Seg Neutrophils # 8.1 K/mm3 (1.8-7.7) H 03/11/22 09:19 Sodium 140 mmol/L (137-145) 03/13/22 05:49 Potassium 4.6 mmol/L (3.6-5.0) 03/13/22 05:49 Chloride 107.1 mmol/L (98-107) H 03/13/22 05:49 Carbon Dioxide 23 mmol/L (22-30) 03/13/22 05:49 Anion Gap 15 mmol/L 03/13/22 05:49 BUN 26 mg/dL (9-20) H 03/13/22 05:49 Creatinine 1.4 mg/dL (0.8-1.3) H 03/13/22 05:49 Estimated GFR 49 ml/min 03/13/22 05:49 BUN/Creatinine Ratio 19 % 03/13/22 05:49 Glucose 95 mg/dL (75-100) 03/13/22 05:49 POC Glucose 166 mg/dL (70-105) H 03/16/22 21:20 Hemoglobin A1c < 4.0 % (4-6) L 03/08/22 14:25 Calcium 8.3 mg/dL (8.4-10.2) L 03/13/22 05:49 SARS-CoV-2 (PCR) Positive (Negative) A 03/12/22 10:40 Blood Type A POSITIVE 03/08/22 14:00 Antibody Screen Negative 03/08/22 14:00 Crossmatch See Detail 03/08/22 14:00 Win/IV: Voiding Method Condom Catheter Active Medications - Current Medications Current Medications: Generic Name Dose Route Start Last Admin Trade Name Freq PRN Reason Stop Dose Admin Acetaminophen 650 mg 03/07/22 11:54 03/09/22 11:22 Acetaminophen 325 Mg Tab PO 650 mg Q4H PRN Administration Pain MILD(1-3)/Fever >100.5/[place] Albuterol 2.5 mg 03/07/22 11:54 Albuterol 2.5 Mg/3 Ml Nebu IH Q4HRT PRN Shortness Of Breath Allopurinol 100 mg 03/08/22 10:00 03/16/22 10:20 Allopurinol 100 Mg Tab PO 100 mg QDAY REID Administration Aspirin 81 mg 03/08/22 10:00 03/16/22 10:20 Aspirin 81 Mg Tab Chew PO 81 mg QDAY REID Administration Atorvastatin Calcium 20 mg 03/07/22 22:00 03/16/22 22:39 Atorvastatin 20 Mg Tab PO 20 mg QHS REID Administration Carvedilol 25 mg 03/10/22 22:00 03/16/22 22:36 Carvedilol 25 Mg Tab PO Not Given BID REID Clopidogrel Bisulfate 75 mg 03/08/22 10:00 03/16/22 10:20 Clopidogrel 75 Mg Tab PO 75 mg QDAY REID Administration Dextrose 50 ml 03/07/22 11:58 Dextrose 50% In Water (25gm) 50 Ml Syringe IV Q30MIN PRN Hypoglycemia Protocol Famotidine 20 mg 03/08/22 10:00 03/16/22 10:20 Famotidine 10 Mg Tab PO 20 mg DAILY REID Administration Heparin Sodium (Porcine) 5,000 unit 03/08/22 12:00 03/16/22 22:39 Heparin 5,000 Unit/1 Ml Vial SUB-Q 5,000 unit Q12HR REID Administration Hydrochlorothiazide 12.5 mg 03/10/22 11:00 03/16/22 10:20 Hydrochlorothiazide 12.5 Mg Cap PO 12.5 mg QDAY REID Administration Hydromorphone HCl 0.5 mg 03/07/22 11:54 03/10/22 11:58 Hydromorphone 0.5 Mg/0.5 Ml Inj IV 0.5 mg Q3H PRN Administration Pain , Severe (7-10) Sodium Chloride 1,000 mls @ 42 mls/hr 03/07/22 12:00 03/16/22 22:40 Nacl 0.9% 1000 Ml IV 42 mls/hr DIRECT REID Administration Insulin Human Lispro 0 unit 03/07/22 16:30 03/16/22 22:39 Insulin Lispro 100 Unit/Ml SUB-Q 2 unit ACHS REID Administration Protocol Ketoconazole 1 applic 03/08/22 10:00 03/16/22 10:27 Ketoconazole 2% Cream 15 Gm TP 1 applic QDAY REID Administration Losartan Potassium 100 mg 03/10/22 11:00 03/16/22 10:20 Losartan 50 Mg Tab PO 100 mg QDAY REID Administration Metoclopramide HCl 5 mg 03/08/22 09:30 Metoclopramide 10 Mg Tab PO Q6H PRN Nausea And Vomiting Ondansetron HCl 4 mg 03/08/22 09:30 Ondansetron 4 Mg/2 Ml Inj IV Q8H PRN Nausea And Vomiting Oxycodone/Acetaminophen 1 tab 03/07/22 11:54 03/16/22 10:20 Oxycodone /Acetaminophen 5-325mg Tab PO 1 tab Q6H PRN Administration Pain, Moderate (4-6) Phenytoin 100 mg 03/07/22 22:00 03/16/22 22:39 Phenytoin 100 Mg Capsule.Er PO 100 mg BID REID Administration Senna 8.6 mg 03/08/22 10:00 Sennosides 8.6 Mg Tab PO Q12HR PRN Constipation Sodium Chloride 10 ml 03/07/22 22:00 03/16/22 22:39 Sodium Chloride 0.9% 10 Ml Flush Syringe IV 10 ml BID REID Administration Sodium Chloride 10 ml 03/07/22 11:54 Sodium Chloride 0.9% 10 Ml Flush Syringe IV PRN PRN LINE FLUSH Nutrition/Malnutrition Assess - Dietary Evaluation Nutrition/Malnutrition Findings: Nutrition Notes Start: 03/08/22 17:41 Freq: Status: Active Protocol: Document 03/16/22 11:10 AYDEN (Rec: 03/16/22 11:37 AYDEN [id number]) Nutrition Notes Initial or Follow up Reassessment Current Diagnosis Acute Kidney Injury,Coronary Artery Disease,Diabetes, Hypertension,Malnutrition, Stroke,Hyperlipidemia Other Pertinent Diagnosis Femoral Artery Injury, Metabolic Encephalopathy, Cardiomyopathy, Anemia, .. Current Diet Cardiac/Consistent Carbohydrates Diet+D Suppl ( since L 03/16). Labs/Tests 03/16: N/A. Pertinent Medications 03/16: Nutritionally unremarkable. Height 5 ft 8 in Weight 72.575 kg [place] Body Weight (kg) 70.00 BMI 24.3 Weight change and time frame No body weight change reported in 1 week. Weight Status Appropriate Subjective/Other Information RD consult for routine F/U on dietary advancement. Pt's PO intake of meals has been Poor (<50%), according to ADL notes. Pt is on Room Air, O2 saturation @ 98%, according to Physical Assessment History notes. Pt has missing teeth, according to Physical Assessment History notes. I will prescribe dietary supplements to support wound healing processes ant to compensate for insufficient PO intake of meals. Percent of energy/protein needs met: Prescribed Cardiac/Consistent Carbohydrates Diet provides for energy/protein needs (1, 977 Kcal/86 g) during LOS; additionally, Dietary Supplements will compensate for possible poor or insufficient PO intake of meals and support wound healing processes with 890 Kcal and 25 g of protein. Burn Absent Trauma Absent GI Symptoms None Food Allergy No Skin Integrity/Comment R-thigh skin breakdown and blisters Current % PO Poor (25-49%) Minimum of two criteria No Fluid Accumulation N/A Reduced Director Of Officiating Strength N/A (non-severe) Protein-Calorie Malnutrition N\\A #2 Nutrition Diagnosis Inadequate protein-energy intake Etiology Ongoing and chronical metabolic conditions. As Evidenced by Signs and Symptoms Pt's PO intake of meals has been Poor (<50%), according to ADL notes. #1 Nutrition Diagnosis Increased nutrient needs ( specify in comment below) Comments: Protein to support wound healing processes. Is patient on ventilator? No Is Patient Ambulatory and/or Out of Bed No REE-([facility]-confined to bed) 1716.816 Kcal/Kg value to use for calculation 26 Approximate Energy Requirements Using 1887 kcal/Kg Calculation Used for Recommendations Kcal/kg Additional Notes Protein: 1.25-1.5 g/Kg ABW; 91 -110 g/day. Fluids: 1 ml/Kcal, or as per MD. Nutrition Intervention Change Diet Order: Continue Cardiac/Consistent Carbohydrates Diet. Add Supplement/Snack (indicate name/kcal Start Glucerna; BID. /protein ) Continue 28.8 g pkt. Fabio; BID. Provides kCal: 890 Provides Protein (gm) 25 Goal #1 Support, through dietary supplementation, wound healing processes during LOS. Goal #2 Compensate, through dietary supplementation, for possible poor or insufficient PO intake of meals during LOS. Goal #3 Adjust the dietary intervention to better serve Pt's needs and clinical conditions during LOS. Follow-Up By: 03/23/22 Additional Comments Continue monitoring food tolerance, %PO intake of meals , dietary supplements, and BM.
[2022-03-17] MEDS: INSULIN LISPRO 100 UNIT/ML SUB-Q SCH ×4 (08:12→22:39)
[2022-03-17] MEDS: carvediloL 25 MG TAB PO SCH ×2 (09:52→22:33)
[2022-03-17] MEDS: PHENYTOIN 100 MG CAPSULE.ER PO SCH ×2 (09:56→22:39)
[2022-03-17] MEDS: FAMOTIDINE 10 MG TAB PO SCH (09:56)
[2022-03-17] MEDS: ASPIRIN 81 MG TAB CHEW PO SCH (09:56)
[2022-03-17] MEDS: allopurinoL 100 MG TAB PO SCH (09:56)
[2022-03-17] MEDS: LOSARTAN 50 MG TAB PO SCH (09:56)
[2022-03-17] MEDS: HEPARIN 5,000 UNIT/1 ML VIAL SUB-Q SCH ×2 (09:57→22:39)
[2022-03-17] MEDS: CLOPIDOGREL 75 MG TAB PO SCH (09:57)
[2022-03-17] MEDS: hydroCHLOROthiazide 12.5 MG CAP PO SCH (09:57)
[2022-03-17] MEDS: KETOCONAZOLE 2% CREAM 15 GM TP SCH (10:02)
[2022-03-17] MEDS: ACETAMINOPHEN 325 MG TAB PO PRN (22:39)
--- NOTE | 2022-03-18 06:40 | Progress Note ---
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 Patient has diminished cognition and provides minimal history. Patient is bedbound and nonambulatory and has a palliative performance score 30% and requires 6/6 assistance with activities of daily living. Patient history taken from EMS staff, ED staff, as well as patient daughter who is at bedside during exam and interview. As per daughter the patient has experienced right leg swelling and redness over the past 2 days with persistent and worsening symptoms over the same timeframe. In the ER the patient was found to be hypotensive with a systolic blood pressure in the 70s. Patient found to have encephalopathy, acute kidney injury, suspected right femoral artery injury, malnutrition, and debility, as well as clinical symptoms consistent with CHF decompensation. Patient admitted to telemetry due to increased risk of worsening symptoms after medical stabilization. Vascular surgery team consulted in ED. Cardiology team consulted in ED. Patient has diminished cognition but has a positive gag reflex and is able to pr otect his airway without difficulty at the time my evaluation. No reports of fever, chills, chest pain, palpitation, skin rash, recent contact, or known exposure to COVID-19. No prior admission for review. All medication listed at time of admission has been reconciled. Advanced care planning conducted in E. Echocardiogram 02/23/2022- LV chamber is moderately dilated. There is borderline LV hypertrophy. LV systolic function is severely reduced. The estimated left ventricle ejection fraction is 25-30%. Normal left atrial pressure with Grade I diastolic dysfunction. There is basal septal hypokinesis. There is mid anterior, mid septal, apical septal, apical lateral akinesis. There is normal right ventricular size, wall dimension, and systolic function. The aortic valve leaflet excursion is moderately reduced. There is mild aortic regurgitation. There is mild aortic valve stenosis. AV Mean gradient: 7.07 mmHg. AV Peak gradient: 11.6 mmHg. There is no mitral regurgitation. There is trace tricuspid regurgitation. There is no pulmonic regurgitation. No left ventricular thrombus noted with LV contrast images Cardiac cath 03/04/2022-left main patent, LAD proximal in-stent restenosis 100% with left to left collaterals feeding into the mid to ostial LAD, ramus has an ostial 99%. Circumflex, proximal patent mid 30%. OM1 patent, mild luminary irregularities, large caliber vessel. OM2 medium caliber was patent with left to right collaterals feeding into the mid to distal RCA. RCA comes to the left coronary cusp, proximal pain, mid 100% in-stent restenosis, severe LV dysfunction Outpatient medications: Aspirin, plavix, Losartan 100mg PO QD, atorvastatin 20mg PO QHs, Coreg 25mg PO BID, HCTZ 12.5mg PO QD 03/08/22-Patient seen at bedside with patient nurse present. He is status post left femoral cardiac cath with hematoma and pressure dressing present. No evidence of bleeding noted on the dressing. Bilateral pedal pulses positive. I reviewed lab, medication record, and vital signs. H&H 5.8 today. Patient is typed and crossed for 2 units packed red blood cells. Blood pressure 94/54. 250 normal saline bolus x1. O2 sat 90 to 95%. Patient on continuous monitor and oxygen 2 L nasal cannula till completion of blood transfusion. I reviewed plan of care with the attending. 03/09: Vascular input is appreciated patient continues on pressure dressing for noted pseudoaneurysm with complicated by right groin hematoma. Patient required transfusion of 2 unit packed red blood cell with appropriate response of hemoglobin today. Lasix was also given to prevent fluid overload considering patient's ejection fraction. Awaiting wound care evaluation as vascular notes that" and for patient to follow-up in 2 weeks with vascular for arterial ultrasound Will need wound care for the right thigh. Will need wound care for the skin breakdown and blistering. This will need to be a priority of the care for the next few weeks. Recommend wound care consult with followup at wound care center. Patient maintains good pulses distal to the site. Renal function had gone up to 2 we will await repeat study today. Anticipate discharge in a.m. following wound care evaluation. And if cleared by cardiology. 03/11: Patient seen and examined, no new complaints, awaiting placement. Continue current management. creatinine improving some 03/12: Patient seen and examined resting carefully. Continue awaiting placement. Wound care input noted on verbal discussion they are also supposed to contact vascular physician to understand any other requirement and address with the patient. 03/13: Patient was tested for COVID-19 for screening on placement came back posit quyen. Patient does not have any respiratory symptoms at this time. Hemoglobin remained stable. Respiratory status intact. We will continue to monitor while awaiting placement. 03/14: Patient remains clinically stable, H/H stable, MOVING ALL EXT. Pulses noted and palpable. Awaiting authorization. 03/15: Remains clinically stable. Awaiting auth. 03/16: Clinically stable. Awaiting auth. Plan to discharge to [facility]. COVID PCR positive on 03/12, can d/c isolation on 03/17. 03/17: Clinically stable. Still waiting authorization for placement to [facility]. Rapid COVID ordered. Can DC COVID isolation as patient asymptomatic x5 days. 03/18: blood pressure low today. D/c coreg and losartan at this time. IV fluids ordered overnight. D/w RN to hold anti-HTN and recheck bp. Additionally one temp of 100.8 F documented overnight. No indication yet to culture/treat,will monitor for now. COVID PCR from 03/17 negative. Awaiting placement to [facility]. (1) Injury of femoral artery/pseudoaneurysm with right groin hematoma Current Visit: Yes Status: Acute Plan to address problem: Vascular surgery team consulted, right lower extremity Doppler, apply pressure dressing to right lower extremity, (2) CHF (congestive heart failure)/ischemic cardiomyopathy Current Visit: Yes Status: Acute Qualifiers: Heart failure type: systolic Heart failure chronicity: acute on chronic Qualified Code(s): I50.23 - Acute on chronic systolic (congestive) heart failure Plan to address problem: Strict I's/O, monitor urine output every shift, daily weight, afterload reduction, blood pressure control, supplemental oxygen, cardiology team consulted. (3) ALEXIS (acute kidney injury) secondary to vasomotor nephropathy Current Visit: Yes Status: Acute Plan to address problem: Monitor urine output every shift, daily weight, monitor fluid balance, (4) Seizure disorder Current Visit: Yes Status: Acute Plan to address problem: Continue antiepileptic therapy, supportive care. (5) Metabolic encephalopathy Current Visit: Yes Status: Acute Plan to address problem: Neuro check, seizure precautions, supportive care, aspiration precautions, fall precautions. (6) Malnutrition Current Visit: Yes Status: Acute Qualifiers: Malnutrition type: protein-calorie malnutrition Protein-calorie malnutrition severity: moderate Qualified Code(s): E44.0 - Moderate protein- calorie malnutrition Plan to address problem: Encourage increased protein intake when awake and alert only, dietary supplementation. (7) Vascular dementia/CVA per history Current Visit: Yes Status: Acute Qualifiers: Dementia behavioral disturbance: without behavioral disturbance Qualified Code(s): F01.50 - Vascular dementia without behavioral disturbance Plan to address problem: Verbal prompting, verbal redirection, benzodiazepine therapy as clinically indicated. (8) Cerebral atherosclerosis Current Visit: Yes Status: Acute Plan to address problem: Risk factor reduction, antiplatelet therapy, supportive care. (9) Diabetes melitis Current Visit: Yes Status: Acute Plan to address problem: Consistent carbohydrate diet, Accu-Chek, insulin protocol, hypoglycemia protocol (10) Hyperlipidemia Current Visit: Yes Status: Acute Qualifiers: Hyperlipidemia type: mixed hyperlipidemia Qualified Code(s): E78.2 - Mixed hyperlipidemia Plan to address problem: Statin therapy, supportive care. (11) Hypertension Current Visit: Yes Status: Acute Plan to address problem: Monitor blood pressure occasionally. Patient currently hypotensive. Hold antihypertensive therapy for systolic blood pressure less than equal to 110 mmHg. (12) Acute blood loss anemia (13) COVID-19 positive (14) DVT prophylaxis Current Visit: Yes Status: Acute Plan to address problem: SCD to bilateral lower extremities while in bed (15) Advance care planning Current Visit: Yes Status: Acute Plan to address problem: Disease education conducted, care plan discussed, diagnoses discussed, prognosis discussed, patient is full code. Patient family acknowledged understanding and agreement with care plan, +30 minutes. (15) Preventative health care Current Visit: Yes Status: Acute Plan to address problem: Patient family counseled regarding home safety, outpatient follow-up with primary care physician for all age and risk factor appropriate screening test. +30 minutes. Disposition Plan: med/surg Total Time Spent with Patient (Minutes): 35 History Interval history: Seen and evaluated bedside. No acute complaints. Very pleasant. Hospitalist Physical - Physical exam Narrative exam: VITAL SIGNS: Reviewed. GENERAL: The patient appears normally developed, vital signs as documented. HEAD: No signs of head trauma. EYES: Pupils are equal. Extraocular motions intact. EARS: Hearing grossly intact. MOUTH: Oropharynx is normal. NECK: No adenopathy, no JVD. CHEST: Chest with clear breath sounds bilaterally. No wheezes, rales, or rhonchi. CARDIAC: Regular rate and rhythm. S1 and S2, without murmurs, gallops, or rubs. VASCULAR: No Edema. Peripheral pulses normal and equal in all extremities. ABDOMEN: Soft, non tender and non distended. No rebound or guarding, and no masses palpated. Bowel Sounds normal. MUSCULOSKELETAL: Left groin hematoma, pressure dressing still in place mild ecchymosis noted, tender to touch positive pedal pulses distal to the area good range of motion of all major joints. Extremities without clubbing, cyanosis or edema. Moves lower extremities NEUROLOGIC EXAM: Alert and oriented x 3 No focal sensory or strength deficits. Speech normal. Follows commands. PSYCHIATRIC: Mood normal. SKIN: detail exam as documented in skin assessment - Constitutional Vitals: Temp Pulse Resp BP Pulse Ox 97.7 F 80 18 85/46 97 03/18/22 06:20 03/18/22 06:20 03/18/22 06:20 03/18/22 06:20 03/18/22 06:20 General appearance: Present: mild distress Results - Labs CBC & Chem 7: 03/13/22 05:49 03/13/22 05:49 Labs: Laboratory Last Values WBC 10.1 K/mm3 (4.5-11.0) 03/13/22 05:49 RBC 3.36 M/mm3 (3.65-5.03) L 03/13/22 05:49 Hgb 10.1 gm/dl (11.8-15.2) L 03/13/22 05:49 Hct 31.3 % (35.5-45.6) L 03/13/22 05:49 MCV 93 fl (84-94) 03/13/22 05:49 MCH 30 pg (28-32) 03/13/22 05:49 MCHC 32 % (32-34) 03/13/22 05:49 RDW 15.4 % (13.2-15.2) H 03/13/22 05:49 Plt Count 359 K/mm3 (140-440) 03/13/22 05:49 Lymph % (Auto) 11.0 % (13.4-35.0) L 03/11/22 09:19 [place] % (Auto) 9.1 % (0.0-7.3) H 03/11/22 09:19 Eos % (Auto) 4.7 % (0.0-4.3) H 03/11/22 09:19 Baso % (Auto) 0.5 % (0.0-1.8) 03/11/22 09:19 Lymph # (Auto) 1.2 K/mm3 (1.2-5.4) 03/11/22 09:19 [place] # (Auto) 1.0 K/mm3 (0.0-0.8) H 03/11/22 09:19 Eos # (Auto) 0.5 K/mm3 (0.0-0.4) H 03/11/22 09:19 Baso # (Auto) 0.1 K/mm3 (0.0-0.1) 03/11/22 09:19 Seg Neutrophils % 74.7 % (40.0-70.0) H 03/11/22 09:19 Seg Neutrophils # 8.1 K/mm3 (1.8-7.7) H 03/11/22 09:19 Sodium 140 mmol/L (137-145) 03/13/22 05:49 Potassium 4.6 mmol/L (3.6-5.0) 03/13/22 05:49 Chloride 107.1 mmol/L (98-107) H 03/13/22 05:49 Carbon Dioxide 23 mmol/L (22-30) 03/13/22 05:49 Anion Gap 15 mmol/L 03/13/22 05:49 BUN 26 mg/dL (9-20) H 03/13/22 05:49 Creatinine 1.4 mg/dL (0.8-1.3) H 03/13/22 05:49 Estimated GFR 49 ml/min 03/13/22 05:49 BUN/Creatinine Ratio 19 % 03/13/22 05:49 Glucose 95 mg/dL (75-100) 03/13/22 05:49 POC Glucose 78 mg/dL (70-105) 03/17/22 22:14 Hemoglobin A1c < 4.0 % (4-6) L 03/08/22 14:25 Calcium 8.3 mg/dL (8.4-10.2) L 03/13/22 05:49 Coronavirus (PCR) Negative (Negative) 03/17/22 Unknown SARS-CoV-2 (PCR) Positive (Negative) A 03/12/22 10:40 Blood Type A POSITIVE 03/08/22 14:00 Antibody Screen Negative 03/08/22 14:00 Crossmatch See Detail 03/08/22 14:00 Win/IV: Voiding Method Condom Catheter Active Medications - Current Medications Current Medications: Generic Name Dose Route Start Last Admin Trade Name Freq PRN Reason Stop Dose Admin Acetaminophen 650 mg 03/07/22 11:54 03/17/22 22:39 Acetaminophen 325 Mg Tab PO 650 mg Q4H PRN Administration Pain MILD(1-3)/Fever >100.5/[place] Albuterol 2.5 mg 03/07/22 11:54 Albuterol 2.5 Mg/3 Ml Nebu IH Q4HRT PRN Shortness Of Breath Allopurinol 100 mg 03/08/22 10:00 03/17/22 09:56 Allopurinol 100 Mg Tab PO 100 mg QDAY REID Administration Aspirin 81 mg 03/08/22 10:00 03/17/22 09:56 Aspirin 81 Mg Tab Chew PO 81 mg QDAY REID Administration Atorvastatin Calcium 20 mg 03/07/22 22:00 03/17/22 22:39 Atorvastatin 20 Mg Tab PO 20 mg QHS REID Administration Carvedilol 25 mg 03/10/22 22:00 03/17/22 22:33 Carvedilol 25 Mg Tab PO Not Given BID REID Clopidogrel Bisulfate 75 mg 03/08/22 10:00 03/17/22 09:57 Clopidogrel 75 Mg Tab PO 75 mg QDAY REID Administration Dextrose 50 ml 03/07/22 11:58 Dextrose 50% In Water (25gm) 50 Ml Syringe IV Q30MIN PRN Hypoglycemia Protocol Famotidine 20 mg 03/08/22 10:00 03/17/22 09:56 Famotidine 10 Mg Tab PO 20 mg DAILY REID Administration Heparin Sodium (Porcine) 5,000 unit 03/08/22 12:00 03/17/22 22:39 Heparin 5,000 Unit/1 Ml Vial SUB-Q 5,000 unit Q12HR REID Administration Hydrochlorothiazide 12.5 mg 03/10/22 11:00 03/17/22 09:57 Hydrochlorothiazide 12.5 Mg Cap PO 12.5 mg QDAY REID Administration Hydromorphone HCl 0.5 mg 03/07/22 11:54 03/10/22 11:58 Hydromorphone 0.5 Mg/0.5 Ml Inj IV 0.5 mg Q3H PRN Administration Pain , Severe (7-10) Sodium Chloride 1,000 mls @ 42 mls/hr 03/07/22 12:00 03/16/22 22:40 Nacl 0.9% 1000 Ml IV 42 mls/hr DIRECT REID Administration Insulin Human Lispro 0 unit 03/07/22 16:30 03/17/22 22:39 Insulin Lispro 100 Unit/Ml SUB-Q Not Given ACHS [facility] Protocol Ketoconazole 1 applic 03/08/22 10:00 03/17/22 10:02 Ketoconazole 2% Cream 15 Gm TP 1 applic QDAY REID Administration Losartan Potassium 100 mg 03/10/22 11:00 03/17/22 09:56 Losartan 50 Mg Tab PO 100 mg QDAY REID Administration Metoclopramide HCl 5 mg 03/08/22 09:30 Metoclopramide 10 Mg Tab PO Q6H PRN Nausea And Vomiting Ondansetron HCl 4 mg 03/08/22 09:30 Ondansetron 4 Mg/2 Ml Inj IV Q8H PRN Nausea And Vomiting Oxycodone/Acetaminophen 1 tab 03/07/22 11:54 03/16/22 10:20 Oxycodone /Acetaminophen 5-325mg Tab PO 1 tab Q6H PRN Administration Pain, Moderate (4-6) Phenytoin 100 mg 03/07/22 22:00 03/17/22 22:39 Phenytoin 100 Mg Capsule.Er PO 100 mg BID REID Administration Senna 8.6 mg 03/08/22 10:00 Sennosides 8.6 Mg Tab PO Q12HR PRN Constipation Sodium Chloride 10 ml 03/07/22 22:00 03/17/22 22:40 Sodium Chloride 0.9% 10 Ml Flush Syringe IV Not Given BID REID Sodium Chloride 10 ml 03/07/22 11:54 Sodium Chloride 0.9% 10 Ml Flush Syringe IV PRN PRN LINE FLUSH Nutrition/Malnutrition Assess - Dietary Evaluation Nutrition/Malnutrition Findings: Nutrition Notes Start: 03/08/22 17:41 Freq: Status: Active Protocol: Document 03/16/22 11:10 AYDEN (Rec: 03/16/22 11:37 AYDEN [id number]) Nutrition Notes Initial or Follow up Reassessment Current Diagnosis Acute Kidney Injury,Coronary Artery Disease,Diabetes, Hypertension,Malnutrition, Stroke,Hyperlipidemia Other Pertinent Diagnosis Femoral Artery Injury, Metabolic Encephalopathy, Cardiomyopathy, Anemia, .. Current Diet Cardiac/Consistent Carbohydrates Diet+D Suppl ( since L 03/16). Labs/Tests 03/16: N/A. Pertinent Medications 03/16: Nutritionally unremarkable. Height 5 ft 8 in Weight 72.575 kg [place] Body Weight (kg) 70.00 BMI 24.3 Weight change and time frame No body weight change reported in 1 week. Weight Status Appropriate Subjective/Other Information RD consult for routine F/U on dietary advancement. Pt's PO intake of meals has been Poor (<50%), according to ADL notes. Pt is on Room Air, O2 saturation @ 98%, according to Physical Assessment History notes. Pt has missing teeth, according to Physical Assessment History notes. I will prescribe dietary supplements to support wound healing processes ant to compensate for insufficient PO intake of meals. Percent of energy/protein needs met: Prescribed Cardiac/Consistent Carbohydrates Diet provides for energy/protein needs (1, 977 Kcal/86 g) during LOS; additionally, Dietary Supplements will compensate for possible poor or insufficient PO intake of meals and support wound healing processes with 890 Kcal and 25 g of protein. Burn Absent Trauma Absent GI Symptoms None Food Allergy No Skin Integrity/Comment R-thigh skin breakdown and blisters Current % PO Poor (25-49%) Minimum of two criteria No Fluid Accumulation N/A Reduced Senior Benefits Specialist Strength N/A (non-severe) Protein-Calorie Malnutrition N\\A #2 Nutrition Diagnosis Inadequate protein-energy intake Etiology Ongoing and chronical metabolic conditions. As Evidenced by Signs and Symptoms Pt's PO intake of meals has been Poor (<50%), according to ADL notes. #1 Nutrition Diagnosis Increased nutrient needs ( specify in comment below) Comments: Protein to support wound healing processes. Is patient on ventilator? No Is Patient Ambulatory and/or Out of Bed No REE-([facility]-confined to bed) 1716.816 Kcal/Kg value to use for calculation 26 Approximate Energy Requirements Using 1887 kcal/Kg Calculation Used for Recommendations Kcal/kg Additional Notes Protein: 1.25-1.5 g/Kg ABW; 91 -110 g/day. Fluids: 1 ml/Kcal, or as per MD. Nutrition Intervention Change Diet Order: Continue Cardiac/Consistent Carbohydrates Diet. Add Supplement/Snack (indicate name/kcal Start Glucerna; BID. /protein ) Continue 28.8 g pkt. Fabio; BID. Provides kCal: 890 Provides Protein (gm) 25 Goal #1 Support, through dietary supplementation, wound healing processes during LOS. Goal #2 Compensate, through dietary supplementation, for possible poor or insufficient PO intake of meals during LOS. Goal #3 Adjust the dietary intervention to better serve Pt's needs and clinical conditions during LOS. Follow-Up By: 03/23/22 Additional Comments Continue monitoring food tolerance, %PO intake of meals , dietary supplements, and BM.
[2022-03-18] MEDS: INSULIN LISPRO 100 UNIT/ML SUB-Q SCH ×4 (10:03→22:16)
[2022-03-18] MEDS: SODIUM CHLORIDE 0.9% 1000 ML 1,000 ML IV SCH (10:43)
[2022-03-18] MEDS: FAMOTIDINE 10 MG TAB PO SCH (10:46)
[2022-03-18] MEDS: allopurinoL 100 MG TAB PO SCH (10:46)
[2022-03-18] MEDS: ASPIRIN 81 MG TAB CHEW PO SCH (10:46)
[2022-03-18] MEDS: PHENYTOIN 100 MG CAPSULE.ER PO SCH ×2 (10:46→21:50)
[2022-03-18] MEDS: hydroCHLOROthiazide 12.5 MG CAP PO SCH (10:46)
[2022-03-18] MEDS: CLOPIDOGREL 75 MG TAB PO SCH (10:47)
[2022-03-18] MEDS: HEPARIN 5,000 UNIT/1 ML VIAL SUB-Q SCH ×2 (10:47→21:51)
[2022-03-18] MEDS: KETOCONAZOLE 2% CREAM 15 GM TP SCH (10:48)
[2022-03-19] MEDS: hydroCHLOROthiazide 12.5 MG CAP PO SCH (10:10)
[2022-03-19] MEDS: CLOPIDOGREL 75 MG TAB PO SCH (10:10)
[2022-03-19] MEDS: FAMOTIDINE 10 MG TAB PO SCH (10:10)
[2022-03-19] MEDS: ASPIRIN 81 MG TAB CHEW PO SCH (10:10)
[2022-03-19] MEDS: INSULIN LISPRO 100 UNIT/ML SUB-Q SCH ×3 (10:13→22:57)
[2022-03-19] MEDS: HEPARIN 5,000 UNIT/1 ML VIAL SUB-Q SCH ×2 (10:20→21:05)
[2022-03-19] MEDS: allopurinoL 100 MG TAB PO SCH (10:50)
[2022-03-19] MEDS: KETOCONAZOLE 2% CREAM 15 GM TP SCH (10:50)
[2022-03-19] MEDS: PHENYTOIN 100 MG CAPSULE.ER PO SCH ×2 (10:50→21:05)
--- NOTE | 2022-03-19 11:52 | Progress Note ---
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 Patient has diminished cognition and provides minimal history. Patient is bedbound and nonambulatory and has a palliative performance score 30% and requires 6/6 assistance with activities of daily living. Patient history taken from EMS staff, ED staff, as well as patient daughter who is at bedside during exam and interview. As per daughter the patient has experienced right leg swelling and redness over the past 2 days with persistent and worsening symptoms over the same timeframe. In the ER the patient was found to be hypotensive with a systolic blood pressure in the 70s. Patient found to have encephalopathy, acute kidney injury, suspected right femoral artery injury, malnutrition, and debility, as well as clinical symptoms consistent with CHF decompensation. Patient admitted to telemetry due to increased risk of worsening symptoms after medical stabilization. Vascular surgery team consulted in ED. Cardiology team consulted in ED. Patient has diminished cognition but has a positive gag reflex and is able to protect his airway without difficulty at the time my evaluation. No reports of fever, chills, chest pain, palpitation, skin rash, recent contact, or known exposure to COVID-19. No prior admission for review. All medication listed at time of admission has been reconciled. Advanced care planning conducted in E. Echocardiogram 02/23/2022- LV chamber is moderately dilated. There is borderli ne LV hypertrophy. LV systolic function is severely reduced. The estimated left ventricle ejection fraction is 25-30%. Normal left atrial pressure with Grade I diastolic dysfunction. There is basal septal hypokinesis. There is mid anterior, mid septal, apical septal, apical lateral akinesis. There is normal right ventricular size, wall dimension, and systolic function. The aortic valve leaflet excursion is moderately reduced. There is mild aortic regurgitation. There is mild aortic valve stenosis. AV Mean gradient: 7.07 mmHg. AV Peak gradient: 11.6 mmHg. There is no mitral regurgitation. There is trace tricuspid regurgitation. There is no pulmonic regurgitation. No left ventricular thrombus noted with LV contrast images Cardiac cath 03/04/2022-left main patent, LAD proximal in-stent restenosis 100% with left to left collaterals feeding into the mid to ostial LAD, ramus has an ostial 99%. Circumflex, proximal patent mid 30%. OM1 patent, mild luminary irregularities, large caliber vessel. OM2 medium caliber was patent with left to right collaterals feeding into the mid to distal RCA. RCA comes to the left coronary cusp, proximal pain, mid 100% in-stent restenosis, severe LV dysfunction Outpatient medications: Aspirin, plavix, Losartan 100mg PO QD, atorvastatin 20mg PO QHs, Coreg 25mg PO BID, HCTZ 12.5mg PO QD 03/08/22-Patient seen at bedside with patient nurse present. He is status post left femoral cardiac cath with hematoma and pressure dressing present. No evidence of bleeding noted on the dressing. Bilateral pedal pulses positive. I reviewed lab, medication record, and vital signs. H&H 5.8 today. Patient is typed and crossed for 2 units packed red blood cells. Blood pressure 94/54. 250 normal saline bolus x1. O2 sat 90 to 95%. Patient on continuous monitor and oxygen 2 L nasal cannula till completion of blood transfusion. I reviewed plan of care with the attending. 03/09: Vascular input is appreciated patient continues on pressure dressing for noted pseudoaneurysm with complicated by right groin hematoma. Patient required transfusion of 2 unit packed red blood cell with appropriate response of hemoglobin today. Lasix was also given to prevent fluid overload considering patient's ejection fraction. Awaiting wound care evaluation as vascular notes that" and for patient to follow-up in 2 weeks with vascular for arterial ultrasound Will need wound care for the right thigh. Will need wound care for the skin breakdown and blistering. This will need to be a priority of the care for the next few weeks. Recommend wound care consult with followup at wound care center. Patient maintains good pulses distal to the site. Renal function had gone up to 2 we will await repeat study today. Anticipate discharge in a.m. following wound care evaluation. And if cleared by cardiology. 03/11: Patient seen and examined, no new complaints, awaiting placement. Continue current management. creatinine improving some 03/12: Patient seen and examined resting carefully. Continue awaiting placement. Wound care input noted on verbal discussion they are also supposed to contact vascular physician to understand any other requirement and address with the patient. 03/13: Patient was tested for COVID-19 for screening on placement came back positive. Patient does not have any respiratory symptoms at this time. Hemoglobin remained stable. Respiratory status intact. We will continue to monitor while awaiting placement. 03/14: Patient remains clinically stable, H/H stable, MOVING ALL EXT. Pulses noted and palpable. Awaiting authorization. 03/15: Remains clinically stable. Awaiting auth. 03/16: Clinically stable. Awaiting auth. Plan to discharge to [facility]. COVID PCR positive on 03/12, can d/c isolation on 03/17. 03/17: Clinically stable. Still waiting authorization for placement to [facility]. Rapid COVID ordered. Can DC COVID isolation as patient asymptomatic x5 days. 03/18: blood pressure low today. D/c coreg and losartan at this time. IV fluids ordered overnight. D/w RN to hold anti-HTN and recheck bp. Additionally one temp of 100.8 F documented overnight. No indication yet to culture/treat,will monitor for now. COVID PCR from 03/17 negative. Awaiting placement to [facility]. 03/19: Patient seen and examiend, will obtain and imaging study of the right knee and pelvis, he keeps the right leg contracted, this could be due to pain at the pelvic joint. Will need continued PT. is stable for transfer to [facility] once authorization is obtained he is still asymptomatic respiratory [place] (1) Injury of femoral artery/pseudoaneurysm with right groin hematoma Current Visit: Yes Status: Acute Plan to address problem: Vascular surgery team consulted, right lower extremity Doppler, apply pressure dressing to right lower extremity, (2) CHF (congestive heart failure)/ischemic cardiomyopathy Current Visit: Yes Status: Acute Qualifiers: Heart failure type: systolic Heart failure chronicity: acute on chronic Qualified Code(s): I50.23 - Acute on chronic systolic (congestive) heart failure Plan to address problem: Strict I's/O, monitor urine output every shift, daily weight, afterload reduction, blood pressure control, supplemental oxygen, cardiology team consult ed. (3) ALEXIS (acute kidney injury) secondary to vasomotor nephropathy Current Visit: Yes Status: Acute Plan to address problem: Monitor urine output every shift, daily weight, monitor fluid balance, (4) Seizure disorder Current Visit: Yes Status: Acute Plan to address problem: Continue antiepileptic therapy, supportive care. (5) Metabolic encephalopathy Current Visit: Yes Status: Acute Plan to address problem: Neuro check, seizure precautions, supportive care, aspiration precautions, fall precautions. (6) Malnutrition Current Visit: Yes Status: Acute Qualifiers: Malnutrition type: protein-calorie malnutrition Protein-calorie malnutrition severity: moderate Qualified Code(s): E44.0 - Moderate protein- calorie malnutrition Plan to address problem: Encourage increased protein intake when awake and alert only, dietary supple mentation. (7) Vascular dementia/CVA per history Current Visit: Yes Status: Acute Qualifiers: Dementia behavioral disturbance: without behavioral disturbance Qualified Code(s): F01.50 - Vascular dementia without behavioral disturbance Plan to address problem: Verbal prompting, verbal redirection, benzodiazepine therapy as clinically indicated. (8) Cerebral atherosclerosis Current Visit: Yes Status: Acute Plan to address problem: Risk factor reduction, antiplatelet therapy, supportive care. (9) Diabetes melitis Current Visit: Yes Status: Acute Plan to address problem: Consistent carbohydrate diet, Accu-Chek, insulin protocol, hypoglycemia protocol (10) Hyperlipidemia Current Visit: Yes Status: Acute Qualifiers: Hyperlipidemia type: mixed hyperlipidemia Qualified Code(s): E78.2 - Mixed hyperlipidemia Plan to address problem: Statin therapy, supportive care. (11) Hypertension Current Visit: Yes Status: Acute Plan to address problem: Monitor blood pressure occasionally. Patient currently hypotensive. Hold antihypertensive therapy for systolic blood pressure less than equal to 110 mmHg. (12) Acute blood loss anemia (13) COVID-19 positive (14) DVT prophylaxis Current Visit: Yes Status: Acute Plan to address problem: SCD to bilateral lower extremities while in bed (15) Advance care planning Current Visit: Yes Status: Acute Plan to address problem: Disease education conducted, care plan discussed, diagnoses discussed, prognosis discussed, patient is full code. Patient family acknowledged understanding and agreement with care plan, +30 minutes. (15) Preventative health care Current Visit: Yes Status: Acute Plan to address problem: Patient family counseled regarding home safety, outpatient follow-up with primary care physician for all age and risk factor appropriate screening test. +30 minutes. History Interval history: Patient seen and examined, no new complaints. I did notice that the patient has some tenderness on the right ankle but this could be also referred as he held his knee with any movement. Hospitalist Physical - Physical exam Narrative exam: VITAL SIGNS: Reviewed. GENERAL: The patient appears normally developed, vital signs as documented. HEAD: No signs of head trauma. EYES: Pupils are equal. Extraocular motions intact. EARS: Hearing grossly intact. MOUTH: Oropharynx is normal. NECK: No adenopathy, no JVD. CHEST: Chest with clear breath sounds bilaterally. No wheezes, rales, or rhonchi. CARDIAC: Regular rate and rhythm. S1 and S2, without murmurs, gallops, or rubs. VASCULAR: No Edema. Peripheral pulses normal and equal in all extremities. ABDOMEN: Soft, non tender and non distended. No rebound or guarding, and no masses palpated. Bowel Sounds normal. MUSCULOSKELETAL: right groin hematoma, pressure dressing still in place mild ecchymosis noted, tender to touch positive pedal pulses distal to the area good range of motion of all major joints but improved. Extremities without clubbing, cyanosis or edema. Moves lower extremities NEUROLOGIC EXAM: Alert and oriented x 3 No focal sensory or strength deficits. Speech normal. Follows commands. PSYCHIATRIC: Mood normal. SKIN: detail exam as documented in skin assessment T - Constitutional Vitals: Temp Pulse Resp BP Pulse Ox 98.5 F 87 18 98/31 97 03/19/22 05:55 03/19/22 05:55 03/19/22 05:55 03/19/22 05:55 03/19/22 05:55 General appearance: Present: mild distress Results - Labs CBC & Chem 7: 03/13/22 05:49 03/13/22 05:49 Labs: Laboratory Last Values WBC 10.1 K/mm3 (4.5-11.0) 03/13/22 05:49 RBC 3.36 M/mm3 (3.65-5.03) L 03/13/22 05:49 Hgb 10.1 gm/dl (11.8-15.2) L 03/13/22 05:49 Hct 31.3 % (35.5-45.6) L 03/13/22 05:49 MCV 93 fl (84-94) 03/13/22 05:49 MCH 30 pg (28-32) 03/13/22 05:49 MCHC 32 % (32-34) 03/13/22 05:49 RDW 15.4 % (13.2-15.2) H 03/13/22 05:49 Plt Count 359 K/mm3 (140-440) 03/13/22 05:49 Lymph % (Auto) 11.0 % (13.4-35.0) L 03/11/22 09:19 [place] % (Auto) 9.1 % (0.0-7.3) H 03/11/22 09:19 Eos % (Auto) 4.7 % (0.0-4.3) H 03/11/22 09:19 Baso % (Auto) 0.5 % (0.0-1.8) 03/11/22 09:19 Lymph # (Auto) 1.2 K/mm3 (1.2-5.4) 03/11/22 09:19 [place] # (Auto) 1.0 K/mm3 (0.0-0.8) H 03/11/22 09:19 Eos # (Auto) 0.5 K/mm3 (0.0-0.4) H 03/11/22 09:19 Baso # (Auto) 0.1 K/mm3 (0.0-0.1) 03/11/22 09:19 Seg Neutrophils % 74.7 % (40.0-70.0) H 03/11/22 09:19 Seg Neutrophils # 8.1 K/mm3 (1.8-7.7) H 03/11/22 09:19 Sodium 140 mmol/L (137-145) 03/13/22 05:49 Potassium 4.6 mmol/L (3.6-5.0) 03/13/22 05:49 Chloride 107.1 mmol/L (98-107) H 03/13/22 05:49 Carbon Dioxide 23 mmol/L (22-30) 03/13/22 05:49 Anion Gap 15 mmol/L 03/13/22 05:49 BUN 26 mg/dL (9-20) H 03/13/22 05:49 Creatinine 1.4 mg/dL (0.8-1.3) H 03/13/22 05:49 Estimated GFR 49 ml/min 03/13/22 05:49 BUN/Creatinine Ratio 19 % 03/13/22 05:49 Glucose 95 mg/dL (75-100) 03/13/22 05:49 POC Glucose 106 mg/dL (70-105) H 03/19/22 08:01 Hemoglobin A1c < 4.0 % (4-6) L 03/08/22 14:25 Calcium 8.3 mg/dL (8.4-10.2) L 03/13/22 05:49 Coronavirus (PCR) Negative (Negative) 03/17/22 Unknown SARS-CoV-2 (PCR) Positive (Negative) A 03/12/22 10:40 Blood Type A POSITIVE 03/08/22 14:00 Antibody Screen Negative 03/08/22 14:00 Crossmatch See Detail 03/08/22 14:00 Win/IV: Voiding Method Condom Catheter Active Medications - Current Medications Current Medications: Generic Name Dose Route Start Last Admin Trade Name Freq PRN Reason Stop Dose Admin Acetaminophen 650 mg 03/07/22 11:54 03/17/22 22:39 Acetaminophen 325 Mg Tab PO 650 mg Q4H PRN Administration Pain MILD(1-3)/Fever >100.5/[place] Albuterol 2.5 mg 03/07/22 11:54 Albuterol 2.5 Mg/3 Ml Nebu IH Q4HRT PRN Shortness Of Breath Allopurinol 100 mg 03/08/22 10:00 03/19/22 10:50 Allopurinol 100 Mg Tab PO 100 mg QDAY REID Administration Aspirin 81 mg 03/08/22 10:00 03/19/22 10:10 Aspirin 81 Mg Tab Chew PO 81 mg QDAY REID Administration Atorvastatin Calcium 20 mg 03/07/22 22:00 03/18/22 21:51 Atorvastatin 20 Mg Tab PO 20 mg QHS REID Administration Clopidogrel Bisulfate 75 mg 03/08/22 10:00 03/19/22 10:10 Clopidogrel 75 Mg Tab PO 75 mg QDAY REID Administration Dextrose 50 ml 03/07/22 11:58 Dextrose 50% In Water (25gm) 50 Ml Syringe IV Q30MIN PRN Hypoglycemia Protocol Famotidine 20 mg 03/08/22 10:00 03/19/22 10:10 Famotidine 10 Mg Tab PO 20 mg DAILY REID Administration Heparin Sodium (Porcine) 5,000 unit 03/08/22 12:00 03/19/22 10:20 Heparin 5,000 Unit/1 Ml Vial SUB-Q 5,000 unit Q12HR REID Administration Hydrochlorothiazide 12.5 mg 03/10/22 11:00 03/19/22 10:10 Hydrochlorothiazide 12.5 Mg Cap PO 12.5 mg QDAY REID Administration Hydromorphone HCl 0.5 mg 03/07/22 11:54 03/10/22 11:58 Hydromorphone 0.5 Mg/0.5 Ml Inj IV 0.5 mg Q3H PRN Administration Pain , Severe (7-10) Sodium Chloride 1,000 mls @ 42 mls/hr 03/07/22 12:00 03/18/22 10:43 Nacl 0.9% 1000 Ml IV 42 mls/hr DIRECT REID Administration Insulin Human Lispro 0 unit 03/07/22 16:30 03/19/22 10:13 Insulin Lispro 100 Unit/Ml SUB-Q Not Given ACHS REID Protocol Ketoconazole 1 applic 03/08/22 10:00 03/19/22 10:50 Ketoconazole 2% Cream 15 Gm TP 1 applic QDAY REID Administration Metoclopramide HCl 5 mg 03/08/22 09:30 Metoclopramide 10 Mg Tab PO Q6H PRN Nausea And Vomiting Ondansetron HCl 4 mg 03/08/22 09:30 Ondansetron 4 Mg/2 Ml Inj IV Q8H PRN Nausea And Vomiting Oxycodone/Acetaminophen 1 tab 03/07/22 11:54 03/16/22 10:20 Oxycodone /Acetaminophen 5-325mg Tab PO 1 tab Q6H PRN Administration Pain, Moderate (4-6) Phenytoin 100 mg 03/07/22 22:00 03/19/22 10:50 Phenytoin 100 Mg Capsule.Er PO 100 mg BID REID Administration Senna 8.6 mg 03/08/22 10:00 Sennosides 8.6 Mg Tab PO Q12HR PRN Constipation Sodium Chloride 10 ml 03/07/22 22:00 03/19/22 10:10 Sodium Chloride 0.9% 10 Ml Flush Syringe IV 10 ml BID REID Administration Sodium Chloride 10 ml 03/07/22 11:54 Sodium Chloride 0.9% 10 Ml Flush Syringe IV PRN PRN LINE FLUSH Nutrition/Malnutrition Assess - Dietary Evaluation Nutrition/Malnutrition Findings: Nutrition Notes Start: 03/08/22 17:41 Freq: Status: Active Protocol: Document 03/16/22 11:10 AYDEN (Rec: 03/16/22 11:37 AYDEN [id number]) Nutrition Notes Initial or Follow up Reassessment Current Diagnosis Acute Kidney Injury,Coronary Artery Disease,Diabetes, Hypertension,Malnutrition, Stroke,Hyperlipidemia Other Pertinent Diagnosis Femoral Artery Injury, Metabolic Encephalopathy, Cardiomyopathy, Anemia, .. Current Diet Cardiac/Consistent Carbohydrates Diet+D Suppl ( since L 03/16). Labs/Tests 03/16: N/A. Pertinent Medications 03/16: Nutritionally unremarkable. Height 5 ft 8 in Weight 72.575 kg [place] Body Weight (kg) 70.00 BMI 24.3 Weight change and time frame No body weight change reported in 1 week. Weight Status Appropriate Subjective/Other Information RD consult for routine F/U on dietary advancement. Pt's PO intake of meals has been Poor (<50%), according to ADL notes. Pt is on Room Air, O2 saturation @ 98%, according to Physical Assessment History notes. Pt has missing teeth, according to Physical Assessment History notes. I will prescribe dietary supplements to support wound healing processes ant to compensate for insufficient PO intake of meals. Percent of energy/protein needs met: Prescribed Cardiac/Consistent Carbohydrates Diet provides for energy/protein needs (1, 977 Kcal/86 g) during LOS; additionally, Dietary Supplements will compensate for possible poor or insufficient PO intake of meals and support wound healing processes with 890 Kcal and 25 g of protein. Burn Absent Trauma Absent GI Symptoms None Food Allergy No Skin Integrity/Comment R-thigh skin breakdown and blisters Current % PO Poor (25-49%) Minimum of two criteria No Fluid Accumulation N/A Reduced Flight Surveyor Strength N/A (non-severe) Protein-Calorie Malnutrition N\\A #2 Nutrition Diagnosis Inadequate protein-energy intake Etiology Ongoing and chronical metabolic conditions. As Evidenced by Signs and Symptoms Pt's PO intake of meals has been Poor (<50%), according to ADL notes. #1 Nutrition Diagnosis Increased nutrient needs ( specify in comment below) Comments: Protein to support wound healing processes. Is patient on ventilator? No Is Patient Ambulatory and/or Out of Bed No REE-([facility]-confined to bed) 1716.816 Kcal/Kg value to use for calculation 26 Approximate Energy Requirements Using 1887 kcal/Kg Calculation Used for Recommendations Kcal/kg Additional Notes Protein: 1.25-1.5 g/Kg ABW; 91 -110 g/day. Fluids: 1 ml/Kcal, or as per MD. Nutrition Intervention Change Diet Order: Continue Cardiac/Consistent Carbohydrates Diet. Add Supplement/Snack (indicate name/kcal Start Glucerna; BID. /protein ) Continue 28.8 g pkt. Fabio; BID. Provides kCal: 890 Provides Protein (gm) 25 Goal #1 Support, through dietary supplementation, wound healing processes during LOS. Goal #2 Compensate, through dietary supplementation, for possible poor or insufficient PO intake of meals during LOS. Goal #3 Adjust the dietary intervention to better serve Pt's needs and clinical conditions during LOS. Follow-Up By: 03/23/22 Additional Comments Continue monitoring food tolerance, %PO intake of meals , dietary supplements, and BM.
--- NOTE | 2022-03-19 13:32 | XRay Report ---
Pelvis single view INDICATION: Pelvic pain IMPRESSION: Limited exam. There is severe healed posterior matter deformity involving the proximal/mi d right femur that is only partially visualized. No obvious acute fracture or dislocation of either h ip is identified within the limits of the exam. Signer Name: Chandana Cardenas MD Signed: 03/19/2022 1:28 PM Workstation Name: [id number]
--- NOTE | 2022-03-19 13:32 | XRay Report ---
Right knee 2 views INDICATION: Right knee pain IMPRESSION: Moderate tricompartmental degenerative changes of the right knee. Mild osteopenia. No acu te fracture is appreciated. Limited exam. Signer Name: Chandana Cardenas MD Signed: 03/19/2022 1:28 PM Workstation Name: [id number]
[2022-03-20] MEDS: INSULIN LISPRO 100 UNIT/ML SUB-Q SCH ×4 (08:00→22:25)
[2022-03-20] MEDS: FAMOTIDINE 10 MG TAB PO SCH (09:45)
[2022-03-20] MEDS: ASPIRIN 81 MG TAB CHEW PO SCH (09:45)
[2022-03-20] MEDS: hydroCHLOROthiazide 12.5 MG CAP PO SCH (09:46)
[2022-03-20] MEDS: PHENYTOIN 100 MG CAPSULE.ER PO SCH ×2 (09:46→22:28)
[2022-03-20] MEDS: HEPARIN 5,000 UNIT/1 ML VIAL SUB-Q SCH ×2 (09:46→22:28)
[2022-03-20] MEDS: CLOPIDOGREL 75 MG TAB PO SCH (09:46)
[2022-03-20] MEDS: allopurinoL 100 MG TAB PO SCH (09:46)
[2022-03-20] MEDS: KETOCONAZOLE 2% CREAM 15 GM TP SCH (09:48)
--- NOTE | 2022-03-20 10:52 | Progress Note ---
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 Patient has diminished cognition and provides minimal history. Patient is bedbound and nonambulatory and has a palliative performance score 30% and requires 6/6 assistance with activities of daily living. Patient history taken from EMS staff, ED staff, as well as patient daughter who is at bedside during exam and interview. As per daughter the patient has experienced right leg swelling and redness over the past 2 days with persistent and worsening symptoms over the same timeframe. In the ER the patient was found to be hypotensive with a systolic blood pressure in the 70s. Patient found to have encephalopathy, acute kidney injury, suspected right femoral artery injury, malnutrition, and debility, as well as clinical symptoms consistent with CHF decompensation. Patient admitted to telemetry due to increased risk of worsening symptoms after medical stabilization. Vascular surgery team consulted in ED. Cardiology team consulted in ED. Patient has diminished cognition but has a positive gag reflex and is able to protect his airway without difficulty at the time my evaluation. No reports of fever, chills, chest pain, palpitation, skin rash, recent contact, or known exposure to COVID-19. No prior admission for review. All medication listed at time of admission has been reconciled. Advanced care planning conducted in E. Echocardiogram 02/23/2022- LV chamber is moderately dilated. There is borderli ne LV hypertrophy. LV systolic function is severely reduced. The estimated left ventricle ejection fraction is 25-30%. Normal left atrial pressure with Grade I diastolic dysfunction. There is basal septal hypokinesis. There is mid anterior, mid septal, apical septal, apical lateral akinesis. There is normal right ventricular size, wall dimension, and systolic function. The aortic valve leaflet excursion is moderately reduced. There is mild aortic regurgitation. There is mild aortic valve stenosis. AV Mean gradient: 7.07 mmHg. AV Peak gradient: 11.6 mmHg. There is no mitral regurgitation. There is trace tricuspid regurgitation. There is no pulmonic regurgitation. No left ventricular thrombus noted with LV contrast images Cardiac cath 03/04/2022-left main patent, LAD proximal in-stent restenosis 100% with left to left collaterals feeding into the mid to ostial LAD, ramus has an ostial 99%. Circumflex, proximal patent mid 30%. OM1 patent, mild luminary irregularities, large caliber vessel. OM2 medium caliber was patent with left to right collaterals feeding into the mid to distal RCA. RCA comes to the left coronary cusp, proximal pain, mid 100% in-stent restenosis, severe LV dysfunction Outpatient medications: Aspirin, plavix, Losartan 100mg PO QD, atorvastatin 20mg PO QHs, Coreg 25mg PO BID, HCTZ 12.5mg PO QD 03/08/22-Patient seen at bedside with patient nurse present. He is status post left femoral cardiac cath with hematoma and pressure dressing present. No evidence of bleeding noted on the dressing. Bilateral pedal pulses positive. I reviewed lab, medication record, and vital signs. H&H 5.8 today. Patient is typed and crossed for 2 units packed red blood cells. Blood pressure 94/54. 250 normal saline bolus x1. O2 sat 90 to 95%. Patient on continuous monitor and oxygen 2 L nasal cannula till completion of blood transfusion. I reviewed plan of care with the attending. 03/09: Vascular input is appreciated patient continues on pressure dressing for noted pseudoaneurysm with complicated by right groin hematoma. Patient required transfusion of 2 unit packed red blood cell with appropriate response of hemoglobin today. Lasix was also given to prevent fluid overload considering patient's ejection fraction. Awaiting wound care evaluation as vascular notes that" and for patient to follow-up in 2 weeks with vascular for arterial ultrasound Will need wound care for the right thigh. Will need wound care for the skin breakdown and blistering. This will need to be a priority of the care for the next few weeks. Recommend wound care consult with followup at wound care center. Patient maintains good pulses distal to the site. Renal function had gone up to 2 we will await repeat study today. Anticipate discharge in a.m. following wound care evaluation. And if cleared by cardiology. 03/11: Patient seen and examined, no new complaints, awaiting placement. Continue current management. creatinine improving some 03/12: Patient seen and examined resting carefully. Continue awaiting placement. Wound care input noted on verbal discussion they are also supposed to contact vascular physician to understand any other requirement and address with the patient. 03/13: Patient was tested for COVID-19 for screening on placement came back positive. Patient does not have any respiratory symptoms at this time. Hemoglobin remained stable. Respiratory status intact. We will continue to monitor while awaiting placement. 03/14: Patient remains clinically stable, H/H stable, MOVING ALL EXT. Pulses noted and palpable. Awaiting authorization. 03/15: Remains clinically stable. Awaiting auth. 03/16: Clinically stable. Awaiting auth. Plan to discharge to [facility]. COVID PCR positive on 03/12, can d/c isolation on 03/17. 03/17: Clinically stable. Still waiting authorization for placement to [facility]. Rapid COVID ordered. Can DC COVID isolation as patient asymptomatic x5 days. 03/18: blood pressure low today. D/c coreg and losartan at this time. IV fluids ordered overnight. D/w RN to hold anti-HTN and recheck bp. Additionally one temp of 100.8 F documented overnight. No indication yet to culture/treat,will monitor for now. COVID PCR from 03/17 negative. Awaiting placement to [facility]. 03/19: Patient seen and examiend, will obtain and imaging study of the right knee and pelvis, he keeps the right leg contracted, this could be due to pain at the pelvic joint. Will need continued PT. is stable for transfer to [facility] once authorization is obtained he is still asymptomatic respiratory [place]. 03/20:Patient seen and examined, no new complaints, imaging studies of the Pelvis showed " There is severe healed posterior matter deformity involving the proximal/mid right femur that is only partially visualized. No obvious acute fracture or dislocation of either hip is identified within the limits of the exam" will recommend outpatient Ortho evaluations. Awaiting placement (1) Injury of femoral artery/pseudoaneurysm with right groin hematoma Current Visit: Yes Status: Acute Plan to address problem: Vascular surgery team consulted, right lower extremity Doppler, apply pressure dressing to right lower extremity, (2) CHF (congestive heart failure)/ischemic cardiomyopathy Current Visit: Yes Status: Acute Qualifiers: Heart failure type: systolic Heart failure chronicity: acute on chronic Qualified Code(s): I50.23 - Acute on chronic systolic (congestive) heart failure Plan to address problem: Strict I's/O, monitor urine output every shift, daily weight, afterload reduction, blood pressure control, supplemental oxygen, cardiology team consulted. (3) ALEXIS (acute kidney injury) secondary to vasomotor nephropathy Current Visit: Yes Status: Acute Plan to address problem: Monitor urine output every shift, daily weight, monitor fluid balance, (4) Seizure disorder Current Visit: Yes Status: Acute Plan to address problem: Continue antiepileptic therapy, supportive care. (5) Metabolic encephalopathy Current Visit: Yes Status: Acute Plan to address problem: Neuro check, seizure precautions, supportive care, aspiration precautions, fall precautions. (6) Malnutrition Current Visit: Yes Status: Acute Qualifiers: Malnutrition type: protein-calorie malnutrition Protein-calorie malnutrition severity: moderate Qualified Code(s): E44.0 - Moderate protein- calorie malnutrition Plan to address problem: Encourage increased protein intake when awake and alert only, dietary supplementation. (7) Vascular dementia/CVA per history Current Visit: Yes Status: Acute Qualifiers: Dementia behavioral disturbance: without behavioral disturbance Qualified Code(s): F01.50 - Vascular dementia without behavioral disturbance Plan to address problem: Verbal prompting, verbal redirection, benzodiazepine therapy as clinically indicated. (8) Cerebral atherosclerosis Current Visit: Yes Status: Acute Plan to address problem: Risk factor reduction, antiplatelet therapy, supportive care. (9) Diabetes melitis Current Visit: Yes Status: Acute Plan to address problem: Consistent carbohydrate diet, Accu-Chek, insulin protocol, hypoglycemia protocol (10) Hyperlipidemia Current Visit: Yes Status: Acute Qualifiers: Hyperlipidemia type: mixed hyperlipidemia Qualified Code(s): E78.2 - Mixed hyperlipidemia Plan to address problem: Statin therapy, supportive care. (11) Hypertension Current Visit: Yes Status: Acute Plan to address problem: Monitor blood pressure occasionally. Patient currently hypotensive. Hold a ntihypertensive therapy for systolic blood pressure less than equal to 110 mmHg. (12) Acute blood loss anemia (13) COVID-19 positive (14) DVT prophylaxis Current Visit: Yes Status: Acute Plan to address problem: SCD to bilateral lower extremities while in bed (15) Advance care planning Current Visit: Yes Status: Acute Plan to address problem: Disease education conducted, care plan discussed, diagnoses discussed, prognosis discussed, patient is full code. Patient family acknowledged understanding and agreement with care plan, +30 minutes. (15) Preventative health care Current Visit: Yes Status: Acute Plan to address problem: Patient family counseled regarding home safety, outpatient follow-up with primary care physician for all age and risk factor appropriate screening test. +30 minutes. History Interval history: Patient seen and examined, no new complaints. I did notice that the patient has some tenderness on the right ankle but this could be also referred as he held his knee with any movement. Hospitalist Physical - Physical exam Narrative exam: VITAL SIGNS: Reviewed. GENERAL: The patient appears normally developed, vital signs as documented. HEAD: No signs of head trauma. EYES: Pupils are equal. Extraocular motions intact. EARS: Hearing grossly intact. MOUTH: Oropharynx is normal. NECK: No adenopathy, no JVD. CHEST: Chest with clear breath sounds bilaterally. No wheezes, rales, or rhonchi. CARDIAC: Regular rate and rhythm. S1 and S2, without murmurs, gallops, or rubs. VASCULAR: No Edema. Peripheral pulses normal and equal in all extremities. ABDOMEN: Soft, non tender and non distended. No rebound or guarding, and no masses palpated. Bowel Sounds normal. MUSCULOSKELETAL: right groin hematoma, pressure dressing still in place mild ecchymosis noted, tender to touch positive pedal pulses distal to the area good range of motion of all major joints but improved. Extremities without clubbing, cyanosis or edema. Moves lower extremities NEUROLOGIC EXAM: Alert and oriented x 3 No focal sensory or strength deficits. Speech normal. Follows commands. PSYCHIATRIC: Mood normal. SKIN: detail exam as documented in skin assessment T - Constitutional Vitals: Temp Pulse Resp BP Pulse Ox 98.1 F 95 H 18 115/60 93 03/20/22 04:29 03/20/22 04:29 03/20/22 04:29 03/20/22 04:29 03/20/22 04:29 General appearance: Present: mild distress Results - Labs CBC & Chem 7: 03/13/22 05:49 03/13/22 05:49 Labs: Laboratory Last Values WBC 10.1 K/mm3 (4.5-11.0) 03/13/22 05:49 RBC 3.36 M/mm3 (3.65-5.03) L 03/13/22 05:49 Hgb 10.1 gm/dl (11.8-15.2) L 03/13/22 05:49 Hct 31.3 % (35.5-45.6) L 03/13/22 05:49 MCV 93 fl (84-94) 03/13/22 05:49 MCH 30 pg (28-32) 03/13/22 05:49 MCHC 32 % (32-34) 03/13/22 05:49 RDW 15.4 % (13.2-15.2) H 03/13/22 05:49 Plt Count 359 K/mm3 (140-440) 03/13/22 05:49 Lymph % (Auto) 11.0 % (13.4-35.0) L 03/11/22 09:19 Tyrrell % (Auto) 9.1 % (0.0-7.3) H 03/11/22 09:19 Eos % (Auto) 4.7 % (0.0-4.3) H 03/11/22 09:19 Baso % (Auto) 0.5 % (0.0-1.8) 03/11/22 09:19 Lymph # (Auto) 1.2 K/mm3 (1.2-5.4) 03/11/22 09:19 Tyrrell # (Auto) 1.0 K/mm3 (0.0-0.8) H 03/11/22 09:19 Eos # (Auto) 0.5 K/mm3 (0.0-0.4) H 03/11/22 09:19 Baso # (Auto) 0.1 K/mm3 (0.0-0.1) 03/11/22 09:19 Seg Neutrophils % 74.7 % (40.0-70.0) H 03/11/22 09:19 Seg Neutrophils # 8.1 K/mm3 (1.8-7.7) H 03/11/22 09:19 Sodium 140 mmol/L (137-145) 03/13/22 05:49 Potassium 4.6 mmol/L (3.6-5.0) 03/13/22 05:49 Chloride 107.1 mmol/L (98-107) H 03/13/22 05:49 Carbon Dioxide 23 mmol/L (22-30) 03/13/22 05:49 Anion Gap 15 mmol/L 03/13/22 05:49 BUN 26 mg/dL (9-20) H 03/13/22 05:49 Creatinine 1.4 mg/dL (0.8-1.3) H 03/13/22 05:49 Estimated GFR 49 ml/min 03/13/22 05:49 BUN/Creatinine Ratio 19 % 03/13/22 05:49 Glucose 95 mg/dL (75-100) 03/13/22 05:49 POC Glucose 100 mg/dL (70-105) 03/20/22 07:29 Hemoglobin A1c < 4.0 % (4-6) L 03/08/22 14:25 Calcium 8.3 mg/dL (8.4-10.2) L 03/13/22 05:49 Coronavirus (PCR) Negative (Negative) 03/17/22 Unknown SARS-CoV-2 (PCR) Positive (Negative) A 03/12/22 10:40 Blood Type A POSITIVE 03/08/22 14:00 Antibody Screen Negative 03/08/22 14:00 Crossmatch See Detail 03/08/22 14:00 Win/IV: Voiding Method Condom Catheter Active Medications - Current Medications Current Medications: Generic Name Dose Route Start Last Admin Trade Name Freq PRN Reason Stop Dose Admin Acetaminophen 650 mg 03/07/22 11:54 03/17/22 22:39 Acetaminophen 325 Mg Tab PO 650 mg Q4H PRN Administration Pain MILD(1-3)/Fever >100.5/[place] Albuterol 2.5 mg 03/07/22 11:54 Albuterol 2.5 Mg/3 Ml Nebu IH Q4HRT PRN Shortness Of Breath Allopurinol 100 mg 03/08/22 10:00 03/20/22 09:46 Allopurinol 100 Mg Tab PO 100 mg QDAY REID Administration Aspirin 81 mg 03/08/22 10:00 03/20/22 09:45 Aspirin 81 Mg Tab Chew PO 81 mg QDAY REID Administration Atorvastatin Calcium 20 mg 03/07/22 22:00 03/19/22 21:06 Atorvastatin 20 Mg Tab PO 20 mg QHS REID Administration Clopidogrel Bisulfate 75 mg 03/08/22 10:00 03/20/22 09:46 Clopidogrel 75 Mg Tab PO 75 mg QDAY REID Administration Dextrose 50 ml 03/07/22 11:58 Dextrose 50% In Water (25gm) 50 Ml Syringe IV Q30MIN PRN Hypoglycemia Protocol Famotidine 20 mg 03/08/22 10:00 03/20/22 09:45 Famotidine 10 Mg Tab PO 20 mg DAILY REID Administration Heparin Sodium (Porcine) 5,000 unit 03/08/22 12:00 03/20/22 09:46 Heparin 5,000 Unit/1 Ml Vial SUB-Q 5,000 unit Q12HR REID Administration Hydrochlorothiazide 12.5 mg 03/10/22 11:00 03/20/22 09:46 Hydrochlorothiazide 12.5 Mg Cap PO 12.5 mg QDAY REID Administration Hydromorphone HCl 0.5 mg 03/07/22 11:54 03/10/22 11:58 Hydromorphone 0.5 Mg/0.5 Ml Inj IV 0.5 mg Q3H PRN Administration Pain , Severe (7-10) Sodium Chloride 1,000 mls @ 42 mls/hr 03/07/22 12:00 03/18/22 10:43 Nacl 0.9% 1000 Ml IV 42 mls/hr DIRECT REID Administration Insulin Human Lispro 0 unit 03/07/22 16:30 03/20/22 08:00 Insulin Lispro 100 Unit/Ml SUB-Q Not Given ACHS [facility] Protocol Ketoconazole 1 applic 03/08/22 10:00 03/20/22 09:48 Ketoconazole 2% Cream 15 Gm TP 1 applic QDAY REID Administration Metoclopramide HCl 5 mg 03/08/22 09:30 Metoclopramide 10 Mg Tab PO Q6H PRN Nausea And Vomiting Ondansetron HCl 4 mg 03/08/22 09:30 Ondansetron 4 Mg/2 Ml Inj IV Q8H PRN Nausea And Vomiting Oxycodone/Acetaminophen 1 tab 03/07/22 11:54 03/16/22 10:20 Oxycodone /Acetaminophen 5-325mg Tab PO 1 tab Q6H PRN Administration Pain, Moderate (4-6) Phenytoin 100 mg 03/07/22 22:00 03/20/22 09:46 Phenytoin 100 Mg Capsule.Er PO 100 mg BID REID Administration Senna 8.6 mg 03/08/22 10:00 Sennosides 8.6 Mg Tab PO Q12HR PRN Constipation Sodium Chloride 10 ml 03/07/22 22:00 03/20/22 09:46 Sodium Chloride 0.9% 10 Ml Flush Syringe IV 10 ml BID REID Administration Sodium Chloride 10 ml 03/07/22 11:54 Sodium Chloride 0.9% 10 Ml Flush Syringe IV PRN PRN LINE FLUSH Nutrition/Malnutrition Assess - Dietary Evaluation Nutrition/Malnutrition Findings: Nutrition Notes Start: 03/08/22 17:41 Freq: Status: Active Protocol: Document 03/16/22 11:10 AYDEN (Rec: 03/16/22 11:37 AYDEN [id number]) Nutrition Notes Initial or Follow up Reassessment Current Diagnosis Acute Kidney Injury,Coronary Artery Disease,Diabetes, Hypertension,Malnutrition, Stroke,Hyperlipidemia Other Pertinent Diagnosis Femoral Artery Injury, Metabolic Encephalopathy, Cardiomyopathy, Anemia, .. Current Diet Cardiac/Consistent Carbohydrates Diet+D Suppl ( since L 03/16). Labs/Tests 03/16: N/A. Pertinent Medications 03/16: Nutritionally unremarkable. Height 5 ft 8 in Weight 72.575 kg [place] Body Weight (kg) 70.00 BMI 24.3 Weight change and time frame No body weight change reported in 1 week. Weight Status Appropriate Subjective/Other Information RD consult for routine F/U on dietary advancement. Pt's PO intake of meals has been Poor (<50%), according to ADL notes. Pt is on Room Air, O2 saturation @ 98%, according to Physical Assessment History notes. Pt has missing teeth, according to Physical Assessment History notes. I will prescribe dietary supplements to support wound healing processes ant to compensate for insufficient PO intake of meals. Percent of energy/protein needs met: Prescribed Cardiac/Consistent Carbohydrates Diet provides for energy/protein needs (1, 977 Kcal/86 g) during LOS; additionally, Dietary Supplements will compensate for possible poor or insufficient PO intake of meals and support wound healing processes with 890 Kcal and 25 g of protein. Burn Absent Trauma Absent GI Symptoms None Food Allergy No Skin Integrity/Comment R-thigh skin breakdown and blisters Current % PO Poor (25-49%) Minimum of two criteria No Fluid Accumulation N/A Reduced Aluminizer Strength N/A (non-severe) Protein-Calorie Malnutrition N\\A #2 Nutrition Diagnosis Inadequate protein-energy intake Etiology Ongoing and chronical metabolic conditions. As Evidenced by Signs and Symptoms Pt's PO intake of meals has been Poor (<50%), according to ADL notes. #1 Nutrition Diagnosis Increased nutrient needs ( specify in comment below) Comments: Protein to support wound healing processes. Is patient on ventilator? No Is Patient Ambulatory and/or Out of Bed No REE-([facility]-confined to bed) 1716.816 Kcal/Kg value to use for calculation 26 Approximate Energy Requirements Using 1887 kcal/Kg Calculation Used for Recommendations Kcal/kg Additional Notes Protein: 1.25-1.5 g/Kg ABW; 91 -110 g/day. Fluids: 1 ml/Kcal, or as per MD. Nutrition Intervention Change Diet Order: Continue Cardiac/Consistent Carbohydrates Diet. Add Supplement/Snack (indicate name/kcal Start Glucerna; BID. /protein ) Continue 28.8 g pkt. Fabio; BID. Provides kCal: 890 Provides Protein (gm) 25 Goal #1 Support, through dietary supplementation, wound healing processes during LOS. Goal #2 Compensate, through dietary supplementation, for possible poor or insufficient PO intake of meals during LOS. Goal #3 Adjust the dietary intervention to better serve Pt's needs and clinical conditions during LOS. Follow-Up By: 03/23/22 Additional Comments Continue monitoring food tolerance, %PO intake of meals , dietary supplements, and BM.
[2022-03-21] MEDS: INSULIN LISPRO 100 UNIT/ML SUB-Q SCH ×4 (07:51→21:32)
--- NOTE | 2022-03-21 09:20 | Discharge Summary ---
Providers - Providers Date of Admission: 03/07/22 11:54 Attending physician: PAUL CRISTINA MD 03/06/22 20:33 Consult to Case Management [CONS] Stat Services Needed at Discharge: Propeller Inspector Notified:: . Comment:: family did call back, she was on the phone w/the pts facility @ the time gb Additional Physician Instructions: Facility where patient came from unable to take patient back; family not answering phone call too. 03/07/22 11:54 Consult to Physician [CONS] Routine Comment: Consulting Provider: CLARA ZEE Physician Instructions: Reason For Exam: Hematoma 03/07/22 11:57 Consult to Case Management [CONS] Routine Services Needed at Discharge: Other Notified:: in am Additional Physician Instructions: Please send our for SNF/[facility] Placement Physical Therapy Evaluation and Treat [CONS] Routine Comment: Reason For Exam: weakness 03/08/22 10:00 Consult to Wound/ET Nurse [CONS] Routine Reason For Exam: right thigh 03/08/22 13:23 Consult to Dietitian/Nutrition [CONS] Routine Physician Instructions: Reason For Exam: Reason for Consult: Poor oral intake 03/08/22 13:32 Occupational Therapy Evaluate and Treat [CONS] Routine Comment: Reason For Exam: Weakness Primary care physician: INFANTRY UNIT LEADER Hospitalization Reason for admission: ANEMIA Condition: Stable Hospital course: 76 YO Male Assisted Living Facility 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 Patient has diminished cognition and provides minimal history. Patient is bedbound and nonambulatory and has a palliative performance score 30% and requires 6/6 assistance with activities of daily living. Patient history taken from EMS staff, ED staff, as well as patient daughter who is at bedside during exam and interview. As per daughter the patient has experienced right leg swelling and redness over the past 2 days with persistent and worsening symptoms over the same timeframe. In the ER the patient was found to be hypotensive with a systolic blood pressure in the 70s. Patient found to have encephalopathy, acute kidney injury, suspected right femoral artery injury, malnutrition, and debility, as well as clinical symptoms consistent with CHF decompensation. Patient admitted to telemetry due to increased risk of worsening symptoms after medical stabilization. Vascular surgery team consulted in ED. Cardiology team consulted in ED. Patient has diminished cognition but has a positive gag reflex and is able to protect his airway without difficulty at the time my evaluation. No reports of fever, chills, chest pain, palpitation, skin rash, recent contact, or known exposure to COVID-19. No prior admission for review. All medication listed at time of admission has been reconciled. Advanced care planning conducted in E. Echocardiogram 02/23/2022- LV chamber is moderately dilated. There is borderline LV hypertrophy. LV systolic function is severely reduced. The es timated left ventricle ejection fraction is 25-30%. Normal left atrial pressure with Grade I diastolic dysfunction. There is basal septal hypokinesis. There is mid anterior, mid septal, apical septal, apical lateral akinesis. There is normal right ventricular size, wall dimension, and systolic function. The aortic valve leaflet excursion is moderately reduced. There is mild aortic regurgitation. There is mild aortic valve stenosis. AV Mean gradient: 7.07 mmHg. AV Peak gradient: 11.6 mmHg. There is no mitral regurgitation. There is trace tricuspid regurgitation. There is no pulmonic regurgitation. No left ventricular thrombus noted with LV contrast images Cardiac cath 03/04/2022-left main patent, LAD proximal in-stent restenosis 100% with left to left collaterals feeding into the mid to ostial LAD, ramus has an ostial 99%. Circumflex, proximal patent mid 30%. OM1 patent, mild luminary irregularities, large caliber vessel. OM2 medium caliber was patent with left to right collaterals feeding into the mid to distal RCA. RCA comes to the left coronary cusp, proximal pain, mid 100% in-stent restenosis, severe LV dysfunction Outpatient medications: Aspirin, plavix, Losartan 100mg PO QD, atorvastatin 20mg PO QHs, Coreg 25mg PO BID, HCTZ 12.5mg PO QD 03/08/22-Patient seen at bedside with patient nurse present. He is status post left femoral cardiac cath with hematoma and pressure dressing present. No evidence of bleeding noted on the dressing. Bilateral pedal pulses positive. I reviewed lab, medication record, and vital signs. H&H 5.8 today. Patient is typed and crossed for 2 units packed red blood cells. Blood pressure 94/54. 250 normal saline bolus x1. O2 sat 90 to 95%. Patient on continuous monitor a nd oxygen 2 L nasal cannula till completion of blood transfusion. I reviewed plan of care with the attending. 03/09: Vascular input is appreciated patient continues on pressure dressing for noted pseudoaneurysm with complicated by right groin hematoma. Patient required transfusion of 2 unit packed red blood cell with appropriate response of hemoglobin today. Lasix was also given to prevent fluid overload considering patient's ejection fraction. Awaiting wound care evaluation as vascular notes that" and for patient to follow-up in 2 weeks with vascular for arterial ultrasound Will need wound care for the right thigh. Will need wound care for the skin breakdown and blistering. This will need to be a priority of the care for the next few weeks. Recommend wound care consult with followup at wound care center. Patient maintains good pulses distal to the site. Renal function had gone up to 2 we will await repeat study today. Anticipate discharge in a.m. following wound care evaluation. And if cleared by cardiology. 03/11: Patient seen and examined, no new complaints, awaiting placement. Continue current management. creatinine improving some 03/12: Patient seen and examined resting carefully. Continue awaiting placement. Wound care input noted on verbal discussion they are also supposed to contact vascular physician to understand any other requirement and address with the patient. 03/13: Patient was tested for COVID-19 for screening on placement came back positive. Patient does not have any respiratory symptoms at this time. Hemoglobin remained stable. Respiratory status intact. We will continue to monitor while awaiting placement. 03/14: Patient remains clinically stable, H/H stable, MOVING ALL EXT. Pulses noted and palpable. Awaiting authorization. 03/15: Remains clinically stable. Awaiting auth. 03/16: Clinically stable. Awaiting auth. Plan to discharge to [facility]. COVID PCR positive on 03/12, can d/c isolation on 03/17. 03/17: Clinically stable. Still waiting authorization for placement to [facility]. Rapid COVID ordered. Can DC COVID isolation as patient asymptomatic x5 days. 03/18: blood pressure low today. D/c coreg and losartan at this time. IV fluids ordered overnight. D/w RN to hold anti-HTN and recheck bp. Additionally one temp of 100.8 F documented overnight. No indication yet to culture/treat,will monitor for now. COVID PCR from 03/17 negative. Awaiting placement to [facility]. 03/19: Patient seen and examined, will obtain and imaging study of the right knee and pelvis, he keeps the right leg contracted, this could be due to pain at the pelvic joint. Will need continued PT. is stable for transfer to [facility] once authorization is obtained he is still asymptomatic respiratory [place]. 03/20:Patient seen and examined, no new complaints, imaging studies of the Pelvis showed " There is severe healed posterior matter deformity involving the proximal/mid right femur that is only partially visualized. No obvious acute fracture or dislocation of either hip is identified within the limits of the exam" will recommend outpatient Ortho evaluations. Awaiting placement 03/21: Patient seen and examined, continue supportive care, authorization obtained and will proceed with discharge, will recommend, PT/OT at the facility and follow up with cardiology, vascular, Neurology and Ortho. Continued wound manage ment (1) Injury of femoral artery/pseudoaneurysm with right groin hematoma Current Visit: Yes Status: Acute Plan to address problem: Vascular surgery team consulted, right lower extremity Doppler, apply pressure dressing to right lower extremity, (2) CHF (congestive heart failure)/ischemic cardiomyopathy Current Visit: Yes Status: Acute Qualifiers: Heart failure type: systolic Heart failure chronicity: acute on chronic Qualified Code(s): I50.23 - Acute on chronic systolic (congestive) heart failure Plan to address problem: Strict I's/O, monitor urine output every shift, daily weight, afterload reduction, blood pressure control, supplemental oxygen, cardiology team consulted. (3) ALEXIS (acute kidney injury) secondary to vasomotor nephropathy Current Visit: Yes Status: Acute Plan to address problem: Monitor urine output every shift, daily weight, monitor fluid balance, (4) Seizure disorder Current Visit: Yes Status: Acute Plan to address problem: Continue antiepileptic therapy, supportive care. (5) Metabolic encephalopathy Current Visit: Yes Status: Acute Plan to address problem: Neuro check, seizure precautions, supportive care, aspiration precautions, fall precautions. (6) Malnutrition Current Visit: Yes Status: Acute Qualifiers: Malnutrition type: protein-calorie malnutrition Protein-calorie malnutrit ion severity: moderate Qualified Code(s): E44.0 - Moderate protein-calorie malnutrition Plan to address problem: Encourage increased protein intake when awake and alert only, dietary supplementation. (7) Vascular dementia/CVA per history Current Visit: Yes Status: Acute Qualifiers: Dementia behavioral disturbance: without behavioral disturbance Qualified Code(s): F01.50 - Vascular dementia without behavioral disturbance Plan to address problem: Verbal prompting, verbal redirection, benzodiazepine therapy as clinically indicated. (8) Cerebral atherosclerosis Current Visit: Yes Status: Acute Plan to address problem: Risk factor reduction, antiplatelet therapy, supportive care. (9) Diabetes melitis Current Visit: Yes Status: Acute Plan to address problem: Consistent carbohydrate diet, Accu-Chek, insulin protocol, hypoglycemia protocol (10) Hyperlipidemia Current Visit: Yes Status: Acute Qualifiers: Hyperlipidemia type: mixed hyperlipidemia Qualified Code(s): E78.2 - Mixed hyperlipidemia Plan to address problem: Statin therapy, supportive care. (11) Hypertension Current Visit: Yes Status: Acute Plan to address problem: Monitor blood pressure occasionally. Patient currently hypotensive. Hold antihypertensive therapy for systolic blood pressure less than equal to 110 mmHg. (12) Acute blood loss anemia (13) COVID-19 positive Disposition: [facility] Final Discharge Diagnosis (Prints w/discharge instructions): (1) Injury of femoral artery/pseudoaneurysm with right groin hematoma. (2) CHF (congestive heart failure)/ischemic cardiomyopathy Time spent for discharge: 35 MINS Core Measure Documentation - Palliative Care Palliative Care/ Comfort Measures: Not Applicable - Core Measures Any of the following diagnoses?: none Exam - Physical Exam Narrative exam: VITAL SIGNS: Reviewed. GENERAL: The patient appears normally developed, vital signs as documented. HEAD: No signs of head trauma. EYES: Pupils are equal. Extraocular motions intact. EARS: Hearing grossly intact. MOUTH: Oropharynx is normal. NECK: No adenopathy, no JVD. CHEST: Chest with clear breath sounds bilaterally. No wheezes, rales, or rhonchi. CARDIAC: Regular rate and rhythm. S1 and S2, without murmurs, gallops, or rubs. VASCULAR: No Edema. Peripheral pulses normal and equal in all extremities. ABDOMEN: Soft, non tender and non distended. No rebound or guarding, and no masses palpated. Bowel Sounds normal. MUSCULOSKELETAL: right groin hematoma, pressure dressing still in place mild ecchymosis noted, tender to touch positive pedal pulses distal to the area good range of motion of all major joints but improved. Extremities without clubbing, cyanosis or edema. Moves lower extremities NEUROLOGIC EXAM: Alert and oriented x 3 No focal sensory or strength deficits. Speech normal. Follows commands. PSYCHIATRIC: Mood normal. SKIN: detail exam as documented in skin assessment T - Constitutional Vitals: Temp Pulse Resp BP Pulse Ox 97.9 F 90 18 136/72 98 03/21/22 05:01 03/21/22 05:01 03/21/22 05:01 03/21/22 05:01 03/21/22 07:52 Plan Activity: advance as tolerated, fall precautions Diet: low salt Special Instructions: record daily weights, record daily BP diary Plan of Treatment: Continue aspirin and Plavix. Follow-up with vascular for ultrasound. And follow-up with cardiology. Follow up with: PRIMARY CARE, [Primary Care Provider] - 3-5 Days CLARA ZEE MD [Staff Physician] - 03/17/22 8:30 am PIPPA TYSON MD [Staff Physician] - 7 Days DANNA SAVAGE MD [Staff Physician] - 7 Days FAROOQ ARRINGTON MD [Staff Physician] - 7 Days [facility] [Outside] - 7 Days Prescriptions: Sennosides/Docusate Sodium [Docusate Sodium-Senna Tablet] 1 each PO DAILY 7 Days #7 oxyCODONE /ACETAMINOPHEN [Percocet 5/325 mg] 1 tab PO Q6H PRN #10 tablet PRN Reason: Pain, Moderate (4-6) Simethicone 125 mg PO Q12H 5 Days #10 cap
[2022-03-21] MEDS: ASPIRIN 81 MG TAB CHEW PO SCH (09:43)
[2022-03-21] MEDS: hydroCHLOROthiazide 12.5 MG CAP PO SCH (09:43)
[2022-03-21] MEDS: FAMOTIDINE 10 MG TAB PO SCH (09:43)
[2022-03-21] MEDS: CLOPIDOGREL 75 MG TAB PO SCH (09:43)
[2022-03-21] MEDS: allopurinoL 100 MG TAB PO SCH (09:44)
[2022-03-21] MEDS: HEPARIN 5,000 UNIT/1 ML VIAL SUB-Q SCH ×2 (09:44→21:27)
[2022-03-21] MEDS: KETOCONAZOLE 2% CREAM 15 GM TP SCH (09:44)
[2022-03-21] MEDS: PHENYTOIN 100 MG CAPSULE.ER PO SCH ×2 (09:46→21:26)
--- NOTE | 2022-03-21 12:11 | Event Note ---
Date: 03/21/22 Patient with follow-up arterial duplex demonstrating 1.5 cm pseudoaneurysm involving the right common femoral artery. Will hold discharge until tomorrow. Patient has pressure dressing applied and will get repeat arterial duplex tomorrow morning prior to discharge.
--- NOTE | 2022-03-21 13:02 | Vascular Lab Report ---
DUPLEX DOPPLER LOWER EXTREMITY ARTERIAL, RIGHT INDICATION: reassess previous pseudoaneurysm. COMPARISON: 03/08/2022 TECHNIQUE: Arterial duplex examination of both lower extremities performed using B-mode, color flow and spectral Doppler assessment. FINDINGS: RIGHT: Common Femoral Artery: PSV 75 cm/sec. Triphasic waveform. Proximal SFA: PSV 78 cm/sec. Triphasic waveform. Mid SFA: PSV 124 cm/sec. Triphasic waveform. Distal SFA: PSV 76 cm/sec. Triphasic waveform. Popliteal artery: PSV 102 cm/sec. Biphasic waveform. Posterior tibial artery: Not evaluated Dorsalis Pedis Artery: Not evaluated Additional findings: None from a pseudoaneurysm projecting from the proximal femoral artery measures 1.5 x 0.9 cm as opposed to 0.5 x 0.6 cm on the previous exam. The neck of the aneurysm measures 0.3 c m. IMPRESSION: Mild interval enlargement of the pseudoaneurysm projecting from the proximal right femoral artery as described. The femoral and popliteal vessels in the right leg are patent with no evidence for stenosi s or occlusion. Signer Name: Lucas Maldonado Jr, MD Signed: 03/21/2022 12:58 PM Workstation Name: [id number]
[2022-03-21] MEDS: SODIUM CHLORIDE 0.9% 1000 ML 1,000 ML IV SCH (17:52)
[2022-03-22] MEDS: SODIUM CHLORIDE 0.9% 1000 ML 1,000 ML IV SCH (07:34)
[2022-03-22] MEDS: INSULIN LISPRO 100 UNIT/ML SUB-Q SCH ×4 (08:16→21:23)
[2022-03-22] MEDS: ASPIRIN 81 MG TAB CHEW PO SCH (10:17)
[2022-03-22] MEDS: allopurinoL 100 MG TAB PO SCH (10:17)
[2022-03-22] MEDS: FAMOTIDINE 10 MG TAB PO SCH (10:17)
[2022-03-22] MEDS: CLOPIDOGREL 75 MG TAB PO SCH (10:18)
[2022-03-22] MEDS: hydroCHLOROthiazide 12.5 MG CAP PO SCH (10:18)
[2022-03-22] MEDS: HEPARIN 5,000 UNIT/1 ML VIAL SUB-Q SCH ×2 (10:18→21:16)
[2022-03-22] MEDS: KETOCONAZOLE 2% CREAM 15 GM TP SCH (10:18)
[2022-03-22] MEDS: PHENYTOIN 100 MG CAPSULE.ER PO SCH ×2 (10:18→21:18)
--- NOTE | 2022-03-22 10:18 | Progress Note ---
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 Patient has diminished cognition and provides minimal history. Patient is bedbound and nonambulatory and has a palliative performance score 30% and requires 6/6 assistance with activities of daily living. Patient history taken from EMS staff, ED staff, as well as patient daughter who is at bedside during exam and interview. As per daughter the patient has experienced right leg swelling and redness over the past 2 days with persistent and worsening symptoms over the same timeframe. In the ER the patient was found to be hypotensive with a systolic blood pressure in the 70s. Patient found to have encephalopathy, acute kidney injury, suspected right femoral artery injury, malnutrition, and debility, as well as clinical symptoms consistent with CHF decompensation. Patient admitted to telemetry due to increased risk of worsening symptoms after medical stabilization. Vascular surgery team consulted in ED. Cardiology team consulted in ED. Patient has diminished cognition but has a positive gag reflex and is able to pr otect his airway without difficulty at the time my evaluation. No reports of fever, chills, chest pain, palpitation, skin rash, recent contact, or known exposure to COVID-19. No prior admission for review. All medication listed at time of admission has been reconciled. Advanced care planning conducted in E. Echocardiogram 02/23/2022- LV chamber is moderately dilated. There is borderline LV hypertrophy. LV systolic function is severely reduced. The estimated left ventricle ejection fraction is 25-30%. Normal left atrial pressure with Grade I diastolic dysfunction. There is basal septal hypokinesis. There is mid anterior, mid septal, apical septal, apical lateral akinesis. There is normal right ventricular size, wall dimension, and systolic function. The aortic valve leaflet excursion is moderately reduced. There is mild aortic regurgitation. There is mild aortic valve stenosis. AV Mean gradient: 7.07 mmHg. AV Peak gradient: 11.6 mmHg. There is no mitral regurgitation. There is trace tricuspid regurgitation. There is no pulmonic regurgitation. No left ventricular thrombus noted with LV contrast images Cardiac cath 03/04/2022-left main patent, LAD proximal in-stent restenosis 100% with left to left collaterals feeding into the mid to ostial LAD, ramus has an ostial 99%. Circumflex, proximal patent mid 30%. OM1 patent, mild luminary irregularities, large caliber vessel. OM2 medium caliber was patent with left to right collaterals feeding into the mid to distal RCA. RCA comes to the left coronary cusp, proximal pain, mid 100% in-stent restenosis, severe LV dysfunction Outpatient medications: Aspirin, plavix, Losartan 100mg PO QD, atorvastatin 20mg PO QHs, Coreg 25mg PO BID, HCTZ 12.5mg PO QD 03/08/22-Patient seen at bedside with patient nurse present. He is status post left femoral cardiac cath with hematoma and pressure dressing present. No evidence of bleeding noted on the dressing. Bilateral pedal pulses positive. I reviewed lab, medication record, and vital signs. H&H 5.8 today. Patient is typed and crossed for 2 units packed red blood cells. Blood pressure 94/54. 250 normal saline bolus x1. O2 sat 90 to 95%. Patient on continuous monitor and oxygen 2 L nasal cannula till completion of blood transfusion. I reviewed plan of care with the attending. 03/09: Vascular input is appreciated patient continues on pressure dressing for noted pseudoaneurysm with complicated by right groin hematoma. Patient required transfusion of 2 unit packed red blood cell with appropriate response of hemoglobin today. Lasix was also given to prevent fluid overload considering patient's ejection fraction. Awaiting wound care evaluation as vascular notes that" and for patient to follow-up in 2 weeks with vascular for arterial ultrasound Will need wound care for the right thigh. Will need wound care for the skin breakdown and blistering. This will need to be a priority of the care for the next few weeks. Recommend wound care consult with followup at wound care center. Patient maintains good pulses distal to the site. Renal function had gone up to 2 we will await repeat study today. Anticipate discharge in a.m. following wound care evaluation. And if cleared by cardiology. 03/11: Patient seen and examined, no new complaints, awaiting placement. Continue current management. creatinine improving some 03/12: Patient seen and examined resting carefully. Continue awaiting placement. Wound care input noted on verbal discussion they are also supposed to contact vascular physician to understand any other requirement and address with the patient. 03/13: Patient was tested for COVID-19 for screening on placement came back posit quyen. Patient does not have any respiratory symptoms at this time. Hemoglobin remained stable. Respiratory status intact. We will continue to monitor while awaiting placement. 03/14: Patient remains clinically stable, H/H stable, MOVING ALL EXT. Pulses noted and palpable. Awaiting authorization. 03/15: Remains clinically stable. Awaiting auth. 03/16: Clinically stable. Awaiting auth. Plan to discharge to [facility]. COVID PCR positive on 03/12, can d/c isolation on 03/17. 03/17: Clinically stable. Still waiting authorization for placement to [facility]. Rapid COVID ordered. Can DC COVID isolation as patient asymptomatic x5 days. 03/18: blood pressure low today. D/c coreg and losartan at this time. IV fluids ordered overnight. D/w RN to hold anti-HTN and recheck bp. Additionally one temp of 100.8 F documented overnight. No indication yet to culture/treat,will monitor for now. COVID PCR from 03/17 negative. Awaiting placement to [facility]. 03/19: Patient seen and examined, will obtain and imaging study of the right knee and pelvis, he keeps the right leg contracted, this could be due to pain at the pelvic joint. Will need continued PT. is stable for transfer to [facility] once authorization is obtained he is still asymptomatic respiratory [place]. 03/20:Patient seen and examined, no new complaints, imaging studies of the Pelvis showed " There is severe healed posterior matter deformity involving the proximal/mid right femur that is only partially visualized. No obvious acute fracture or dislocation of either hip is identified within the limits of the exam" will recommend outpatient Ortho evaluations. Awaiting placement 03/21: Patient seen and examined, continue supportive care, authorization obtained and will proceed with discharge, will recommend, PT/OT at the facility and follow up with cardiology, vascular, Neurology and Ortho. Continued wound management. 03/22; Patient seen and examined, awaiting finale review by Vascular and report of the ultrasound (1) Injury of femoral artery/pseudoaneurysm with right groin hematoma Current Visit: Yes Status: Acute Plan to address problem: Vascular surgery team consulted, right lower extremity Doppler, apply pressure dressing to right lower extremity, (2) CHF (congestive heart failure)/ischemic cardiomyopathy Current Visit: Yes Status: Acute Qualifiers: Heart failure type: systolic Heart failure chronicity: acute on chronic Qualified Code(s): I50.23 - Acute on chronic systolic (congestive) heart failure Plan to address problem: Strict I's/O, monitor urine output every shift, daily weight, afterload reduction, blood pressure control, supplemental oxygen, cardiology team consulted. (3) ALEXIS (acute kidney injury) secondary to vasomotor nephropathy Current Visit: Yes Status: Acute Plan to address problem: Monitor urine output every shift, daily weight, monitor fluid balance, (4) Seizure disorder Current Visit: Yes Status: Acute Plan to address problem: Continue antiepileptic therapy, supportive care. (5) Metabolic encephalopathy Current Visit: Yes Status: Acute Plan to address problem: Neuro check, seizure precautions, supportive care, aspiration precautions, fall precautions. (6) Malnutrition Current Visit: Yes Status: Acute Qualifiers: Malnutrition type: protein-calorie malnutrition Protein-calorie malnutrition severity: moderate Qualified Code(s): E44.0 - Moderate protein- calorie malnutrition Plan to address problem: Encourage increased protein intake when awake and alert only, dietary supplementation. (7) Vascular dementia/CVA per history Current Visit: Yes Status: Acute Qualifiers: Dementia behavioral disturbance: without behavioral disturbance Qualified Code(s): F01.50 - Vascular dementia without behavioral disturbance Plan to address problem: Verbal prompting, verbal redirection, benzodiazepine therapy as clinically indicated. (8) Cerebral atherosclerosis Current Visit: Yes Status: Acute Plan to address problem: Risk factor reduction, antiplatelet therapy, supportive care. (9) Diabetes melitis Current Visit: Yes Status: Acute Plan to address problem: Consistent carbohydrate diet, Accu-Chek, insulin protocol, hypoglycemia protocol (10) Hyperlipidemia Current Visit: Yes Status: Acute Qualifiers: Hyperlipidemia type: mixed hyperlipidemia Qualified Code(s): E78.2 - Mixed hyperlipidemia Plan to address problem: Statin therapy, supportive care. (11) Hypertension Current Visit: Yes Status: Acute Plan to address problem: Monitor blood pressure occasionally. Patient currently hypotensive. Hold antihypertensive therapy for systolic blood pressure less than equal to 110 mmHg. (12) Acute blood loss anemia (13) COVID-19 positive History Interval history: Patient seen and examined, no new complaints. I did notice that the patient has some tenderness on the right ankle but this could be also referred as he held his knee with any movement. Hospitalist Physical - Physical exam Narrative exam: VITAL SIGNS: Reviewed. GENERAL: The patient appears normally developed, vital signs as documented. HEAD: No signs of head trauma. EYES: Pupils are equal. Extraocular motions intact. EARS: Hearing grossly intact. MOUTH: Oropharynx is normal. NECK: No adenopathy, no JVD. CHEST: Chest with clear breath sounds bilaterally. No wheezes, rales, or rhonchi. CARDIAC: Regular rate and rhythm. S1 and S2, without murmurs, gallops, or rubs. VASCULAR: No Edema. Peripheral pulses normal and equal in all extremities. ABDOMEN: Soft, non tender and non distended. No rebound or guarding, and no masses palpated. Bowel Sounds normal. MUSCULOSKELETAL: right groin hematoma, pressure dressing still in place mild ecchymosis noted, tender to touch positive pedal pulses distal to the area good range of motion of all major joints but improved. Extremities without clubbing, cyanosis or edema. Moves lower extremities NEUROLOGIC EXAM: Alert and oriented x 3 No focal sensory or strength deficits. Speech normal. Follows commands. PSYCHIATRIC: Mood normal. SKIN: detail exam as documented in skin assessment T - Constitutional Vitals: Temp Pulse Resp BP Pulse Ox 97.7 F 96 H 17 96/48 94 03/22/22 05:37 03/22/22 05:37 03/22/22 05:37 03/22/22 05:37 03/22/22 05:37 General appearance: Present: mild distress Results - Labs CBC & Chem 7: 03/13/22 05:49 03/13/22 05:49 Labs: Laboratory Last Values WBC 10.1 K/mm3 (4.5-11.0) 03/13/22 05:49 RBC 3.36 M/mm3 (3.65-5.03) L 03/13/22 05:49 Hgb 10.1 gm/dl (11.8-15.2) L 03/13/22 05:49 Hct 31.3 % (35.5-45.6) L 03/13/22 05:49 MCV 93 fl (84-94) 03/13/22 05:49 MCH 30 pg (28-32) 03/13/22 05:49 MCHC 32 % (32-34) 03/13/22 05:49 RDW 15.4 % (13.2-15.2) H 03/13/22 05:49 Plt Count 359 K/mm3 (140-440) 03/13/22 05:49 Lymph % (Auto) 11.0 % (13.4-35.0) L 03/11/22 09:19 Bath % (Auto) 9.1 % (0.0-7.3) H 03/11/22 09:19 Eos % (Auto) 4.7 % (0.0-4.3) H 03/11/22 09:19 Baso % (Auto) 0.5 % (0.0-1.8) 03/11/22 09:19 Lymph # (Auto) 1.2 K/mm3 (1.2-5.4) 03/11/22 09:19 Bath # (Auto) 1.0 K/mm3 (0.0-0.8) H 03/11/22 09:19 Eos # (Auto) 0.5 K/mm3 (0.0-0.4) H 03/11/22 09:19 Baso # (Auto) 0.1 K/mm3 (0.0-0.1) 03/11/22 09:19 Seg Neutrophils % 74.7 % (40.0-70.0) H 03/11/22 09:19 Seg Neutrophils # 8.1 K/mm3 (1.8-7.7) H 03/11/22 09:19 Sodium 140 mmol/L (137-145) 03/13/22 05:49 Potassium 4.6 mmol/L (3.6-5.0) 03/13/22 05:49 Chloride 107.1 mmol/L (98-107) H 03/13/22 05:49 Carbon Dioxide 23 mmol/L (22-30) 03/13/22 05:49 Anion Gap 15 mmol/L 03/13/22 05:49 BUN 26 mg/dL (9-20) H 03/13/22 05:49 Creatinine 1.4 mg/dL (0.8-1.3) H 03/13/22 05:49 Estimated GFR 49 ml/min 03/13/22 05:49 BUN/Creatinine Ratio 19 % 03/13/22 05:49 Glucose 95 mg/dL (75-100) 03/13/22 05:49 POC Glucose 129 mg/dL (70-105) H 03/22/22 07:49 Hemoglobin A1c < 4.0 % (4-6) L 03/08/22 14:25 Calcium 8.3 mg/dL (8.4-10.2) L 03/13/22 05:49 Coronavirus (PCR) Negative (Negative) 03/17/22 Unknown SARS-CoV-2 (PCR) Positive (Negative) A 03/12/22 10:40 Blood Type A POSITIVE 03/08/22 14:00 Antibody Screen Negative 03/08/22 14:00 Crossmatch See Detail 03/08/22 14:00 Win/IV: Voiding Method Condom Catheter Active Medications - Current Medications Current Medications: Generic Name Dose Route Start Last Admin Trade Name Freq PRN Reason Stop Dose Admin Acetaminophen 650 mg 03/07/22 11:54 03/17/22 22:39 Acetaminophen 325 Mg Tab PO 650 mg Q4H PRN Administration Pain MILD(1-3)/Fever >100.5/[place] Albuterol 2.5 mg 03/07/22 11:54 Albuterol 2.5 Mg/3 Ml Nebu IH Q4HRT PRN Shortness Of Breath Allopurinol 100 mg 03/08/22 10:00 03/21/22 09:44 Allopurinol 100 Mg Tab PO 100 mg QDAY REID Administration Aspirin 81 mg 03/08/22 10:00 03/21/22 09:43 Aspirin 81 Mg Tab Chew PO 81 mg QDAY REID Administration Atorvastatin Calcium 20 mg 03/07/22 22:00 03/21/22 21:26 Atorvastatin 20 Mg Tab PO 20 mg QHS REID Administration Clopidogrel Bisulfate 75 mg 03/08/22 10:00 03/21/22 09:43 Clopidogrel 75 Mg Tab PO 75 mg QDAY REID Administration Dextrose 50 ml 03/07/22 11:58 Dextrose 50% In Water (25gm) 50 Ml Syringe IV Q30MIN PRN Hypoglycemia Protocol Famotidine 20 mg 03/08/22 10:00 03/21/22 09:43 Famotidine 10 Mg Tab PO 20 mg DAILY REID Administration Heparin Sodium (Porcine) 5,000 unit 03/08/22 12:00 03/21/22 21:27 Heparin 5,000 Unit/1 Ml Vial SUB-Q 5,000 unit Q12HR REID Administration Hydrochlorothiazide 12.5 mg 03/10/22 11:00 03/21/22 09:43 Hydrochlorothiazide 12.5 Mg Cap PO 12.5 mg QDAY REID Administration Hydromorphone HCl 0.5 mg 03/07/22 11:54 03/10/22 11:58 Hydromorphone 0.5 Mg/0.5 Ml Inj IV 0.5 mg Q3H PRN Administration Pain , Severe (7-10) Sodium Chloride 1,000 mls @ 42 mls/hr 03/07/22 12:00 03/22/22 07:34 Nacl 0.9% 1000 Ml IV 42 mls/hr DIRECT REID Administration Insulin Human Lispro 0 unit 03/07/22 16:30 03/21/22 21:32 Insulin Lispro 100 Unit/Ml SUB-Q Not Given ACHS [facility] Protocol Ketoconazole 1 applic 03/08/22 10:00 03/21/22 09:44 Ketoconazole 2% Cream 15 Gm TP 1 applic QDAY REID Administration Metoclopramide HCl 5 mg 03/08/22 09:30 Metoclopramide 10 Mg Tab PO Q6H PRN Nausea And Vomiting Ondansetron HCl 4 mg 03/08/22 09:30 Ondansetron 4 Mg/2 Ml Inj IV Q8H PRN Nausea And Vomiting Oxycodone/Acetaminophen 1 tab 03/07/22 11:54 03/16/22 10:20 Oxycodone /Acetaminophen 5-325mg Tab PO 1 tab Q6H PRN Administration Pain, Moderate (4-6) Phenytoin 100 mg 03/07/22 22:00 03/21/22 21:26 Phenytoin 100 Mg Capsule.Er PO 100 mg BID REID Administration Senna 8.6 mg 03/08/22 10:00 Sennosides 8.6 Mg Tab PO Q12HR PRN Constipation Sodium Chloride 10 ml 03/07/22 22:00 03/21/22 21:31 Sodium Chloride 0.9% 10 Ml Flush Syringe IV 10 ml BID REID Administration Sodium Chloride 10 ml 03/07/22 11:54 Sodium Chloride 0.9% 10 Ml Flush Syringe IV PRN PRN LINE FLUSH Nutrition/Malnutrition Assess - Dietary Evaluation Nutrition/Malnutrition Findings: Nutrition Notes Start: 03/08/22 17:41 Freq: Status: Active Protocol: Document 03/16/22 11:10 AYDEN (Rec: 03/16/22 11:37 AYDEN [id number]) Nutrition Notes Initial or Follow up Reassessment Current Diagnosis Acute Kidney Injury,Coronary Artery Disease,Diabetes, Hypertension,Malnutrition, Stroke,Hyperlipidemia Other Pertinent Diagnosis Femoral Artery Injury, Metabolic Encephalopathy, Cardiomyopathy, Anemia, .. Current Diet Cardiac/Consistent Carbohydrates Diet+D Suppl ( since L 03/16). Labs/Tests 03/16: N/A. Pertinent Medications 03/16: Nutritionally unremarkable. Height 5 ft 8 in Weight 72.575 kg [place] Body Weight (kg) 70.00 BMI 24.3 Weight change and time frame No body weight change reported in 1 week. Weight Status Appropriate Subjective/Other Information RD consult for routine F/U on dietary advancement. Pt's PO intake of meals has been Poor (<50%), according to ADL notes. Pt is on Room Air, O2 saturation @ 98%, according to Physical Assessment History notes. Pt has missing teeth, according to Physical Assessment History notes. I will prescribe dietary supplements to support wound healing processes ant to compensate for insufficient PO intake of meals. Percent of energy/protein needs met: Prescribed Cardiac/Consistent Carbohydrates Diet provides for energy/protein needs (1, 977 Kcal/86 g) during LOS; additionally, Dietary Supplements will compensate for possible poor or insufficient PO intake of meals and support wound healing processes with 890 Kcal and 25 g of protein. Burn Absent Trauma Absent GI Symptoms None Food Allergy No Skin Integrity/Comment R-thigh skin breakdown and blisters Current % PO Poor (25-49%) Minimum of two criteria No Fluid Accumulation N/A Reduced Line Service Attendant Strength N/A (non-severe) Protein-Calorie Malnutrition N\\A #2 Nutrition Diagnosis Inadequate protein-energy intake Etiology Ongoing and chronical metabolic conditions. As Evidenced by Signs and Symptoms Pt's PO intake of meals has been Poor (<50%), according to ADL notes. #1 Nutrition Diagnosis Increased nutrient needs ( specify in comment below) Comments: Protein to support wound healing processes. Is patient on ventilator? No Is Patient Ambulatory and/or Out of Bed No REE-([facility]-confined to bed) 1716.816 Kcal/Kg value to use for calculation 26 Approximate Energy Requirements Using 1887 kcal/Kg Calculation Used for Recommendations Kcal/kg Additional Notes Protein: 1.25-1.5 g/Kg ABW; 91 -110 g/day. Fluids: 1 ml/Kcal, or as per MD. Nutrition Intervention Change Diet Order: Continue Cardiac/Consistent Carbohydrates Diet. Add Supplement/Snack (indicate name/kcal Start Glucerna; BID. /protein ) Continue 28.8 g pkt. Fabio; BID. Provides kCal: 890 Provides Protein (gm) 25 Goal #1 Support, through dietary supplementation, wound healing processes during LOS. Goal #2 Compensate, through dietary supplementation, for possible poor or insufficient PO intake of meals during LOS. Goal #3 Adjust the dietary intervention to better serve Pt's needs and clinical conditions during LOS. Follow-Up By: 03/23/22 Additional Comments Continue monitoring food tolerance, %PO intake of meals , dietary supplements, and BM.
--- NOTE | 2022-03-22 12:06 | Event Note ---
Date: 03/22/22 The pseudoaneurym persist, despite attempted closure with applied pressure. The pseudoaneurysm is stable, in size, and has no risk of rupture. Its small with a short neck and is therefore no amenable to percutaneous intervention at this time. Would recommend discharging the patient and having him follow up in the office with Dr. Sexton in 2 weeks. At that time he can be reevaluated with an arterial duplex to assess for thrombosis or change in size, if it persist. Management will be based off of the findings at that time.
--- NOTE | 2022-03-22 14:28 | Vascular Lab Report ---
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 TECHNIQUE: Arterial duplex examination of both lower extremities performed using B-mode, color flow and spectral Doppler assessment. COMPARISON: 03/21/2022 FINDINGS: RIGHT: Common Femoral Artery: PSV 63 cm/sec. Triphasic waveform. Proximal SFA: PSV 76 cm/sec. Biphasic waveform. Mid SFA: PSV 75 cm/sec. Triphasic waveform. Distal SFA: PSV 95 cm/sec. Triphasic waveform. Popliteal artery: PSV 90 cm/sec. Biphasic waveform. Posterior tibial artery: Not evaluated Dorsalis Pedis Artery: Not evaluated Additional findings: The pseudoaneurysm projecting from the proximal femoral artery measures 1.3 x 1. 5 cm with a 0.3 cm neck as opposed to 1.5 x 0.9 cm with a 0.3 cm neck on the previous exam. IMPRESSION: Right femoral pseudoaneurysm as described. Signer Name: Lucas Maldonado Jr, MD Signed: 03/22/2022 2:24 PM Workstation Name: [id number]
[2022-03-23] MEDS: SODIUM CHLORIDE 0.9% 1000 ML 1,000 ML IV SCH (00:44)
[2022-03-23 06:26] VITALS: BP 127/73
--- NOTE | 2022-03-23 07:32 | Discharge Summary ---
Providers - Providers Date of Admission: 03/07/22 11:54 Attending physician: PAUL CRISTINA MD 03/06/22 20:33 Consult to Case Management [CONS] Stat Services Needed at Discharge: Tool Design Engineer Notified:: . Comment:: family did call back, she was on the phone w/the pts facility @ the time gb Additional Physician Instructions: Facility where patient came from unable to take patient back; family not answering phone call too. 03/07/22 11:54 Consult to Physician [CONS] Routine Comment: Consulting Provider: CLARA ZEE Physician Instructions: Reason For Exam: Hematoma 03/07/22 11:57 Consult to Case Management [CONS] Routine Services Needed at Discharge: Other Notified:: in am Additional Physician Instructions: Please send our for SNF/[facility] Placement Physical Therapy Evaluation and Treat [CONS] Routine Comment: Reason For Exam: weakness 03/08/22 10:00 Consult to Wound/ET Nurse [CONS] Routine Reason For Exam: right thigh 03/08/22 13:23 Consult to Dietitian/Nutrition [CONS] Routine Physician Instructions: Reason For Exam: Reason for Consult: Poor oral intake 03/08/22 13:32 Occupational Therapy Evaluate and Treat [CONS] Routine Comment: Reason For Exam: Weakness Primary care physician: CHIEF MAINTENANCE SUPERVISOR Hospitalization Reason for admission: groin pain Condition: Stable Hospital course: 76 YO Male Assisted Living Facility 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 Patient has diminished cognition and provides minimal history. Patient is bedbound and nonambulatory and has a palliative performance score 30% and requires 6/6 assistance with activities of daily living. Patient history taken from EMS staff, ED staff, as well as patient daughter who is at bedside during exam and interview. As per daughter the patient has experienced right leg swelling and redness over the past 2 days with persistent and worsening symptoms over the same timeframe. In the ER the patient was found to be hypotensive with a systolic blood pressure in the 70s. Patient found to have encephalopathy, acute kidney injury, suspected right femoral artery injury, malnutrition, and debility, as well as clinical symptoms consistent with CHF decompensation. Patient admitted to telemetry due to increased risk of worsening symptoms after medical stabilization. Vascular surgery team consulted in ED. Cardiology team consulted in ED. Patient has diminished cognition but has a positive gag reflex and is able to protect his airway without difficulty at the time my evaluation. No reports of fever, chills, chest pain, palpitation, skin rash, recent contact, or known exposure to COVID-19. No prior admission for review. All medication listed at time of admission has been reconciled. Advanced care planning conducted in E. Echocardiogram 02/23/2022- LV chamber is moderately dilated. There is borderline LV hypertrophy. LV systolic function is severely reduced. The estimated left ventricle ejection fraction is 25-30%. Normal left atrial pressure with Grade I diastolic dysfunction. There is basal septal hypokinesis. There is mid anterior, mid septal, apical septal, apical lateral akinesis. There is normal right ventricular size, wall dimension, and systolic function. The aortic valve leaflet excursion is moderately reduced. There is mild aortic regurgitation. There is mild aortic valve stenosis. AV Mean gradient: 7.07 mmHg. AV Peak gradient: 11.6 mmHg. There is no mitral regurgitation. There is trace tricuspid regurgitation. There is no pulmonic regurgitation. No left ventricular thrombus noted with LV contrast images Cardiac cath 03/04/2022-left main patent, LAD proximal in-stent restenosis 100% with left to left collaterals feeding into the mid to ostial LAD, ramus has an ostial 99%. Circumflex, proximal patent mid 30%. OM1 patent, mild luminary irregularities, large caliber vessel. OM2 medium caliber was patent with left to right collaterals feeding into the mid to distal RCA. RCA comes to the left coronary cusp, proximal pain, mid 100% in-stent restenosis, severe LV dysfunction Outpatient medications: Aspirin, plavix, Losartan 100mg PO QD, atorvastatin 20mg PO QHs, Coreg 25mg PO BID, HCTZ 12.5mg PO QD 03/08/22-Patient seen at bedside with patient nurse present. He is status post left femoral cardiac cath with hematoma and pressure dressing present. No evidence of bleeding noted on the dressing. Bilateral pedal pulses positive. I reviewed lab, medication record, and vital signs. H&H 5.8 today. Patient is typed and crossed for 2 units packed red blood cells. Blood pressure 94/54. 250 normal saline bolus x1. O2 sat 90 to 95%. Patient on continuous monitor and oxygen 2 L nasal cannula till completion of blood transfusion. I reviewed plan of care with the attending. 03/09: Vascular input is appreciated patient continues on pressure dressing for noted pseudoaneurysm with complicated by right groin hematoma. Patient required transfusion of 2 unit packed red blood cell with appropriate response of hemoglobin today. Lasix was also given to prevent fluid overload considering patient's ejection fraction. Awaiting wound care evaluation as vascular notes that" and for patient to follow-up in 2 weeks with vascular for arterial ultrasound Will need wound care for the right thigh. Will need wound care for the skin breakdown and blistering. This will need to be a priority of the care for the next few weeks. Recommend wound care consult with followup at wound care center. Patient maintains good pulses distal to the site. Renal function had gone up to 2 we will await repeat study today. Anticipate discharge in a.m. following wound care evaluation. And if cleared by cardiology. 03/11: Patient seen and examined, no new complaints, awaiting placement. Continue current management. creatinine improving some 03/12: Patient seen and examined resting carefully. Continue awaiting placement. Wound care input noted on verbal discussion they are also supposed to contact vascular physician to understand any other requirement and address with the patient. 03/13: Patient was tested for COVID-19 for screening on placement came back positive. Patient does not have any respiratory symptoms at this time. Hemoglobin remained stable. Respiratory status intact. We will continue to monitor while awaiting placement. 03/14: Patient remains clinically stable, H/H stable, MOVING ALL EXT. Pulses noted and palpable. Awaiting authorization. 03/15: Remains clinically stable. Awaiting auth. 03/16: Clinically stable. Awaiting auth. Plan to discharge to [facility]. COVID PCR positive on 03/12, can d/c isolation on 03/17. 03/17: Clinically stable. Still waiting authorization for placement to [facility]. Rapid COVID ordered. Can DC COVID isolation as patient asymptomatic x5 days. 03/18: blood pressure low today. D/c coreg and losartan at this time. IV fluids ordered overnight. D/w RN to hold anti-HTN and recheck bp. Additionally one temp of 100.8 F documented overnight. No indication yet to culture/treat,will monitor for now. COVID PCR from 7/28 negative. Awaiting placement to [facility]. 03/19: Patient seen and examined, will obtain and imaging study of the right knee and pelvis, he keeps the right leg contracted, this could be due to pain at the pelvic joint. Will need continued PT. is stable for transfer to [facility] once authorization is obtained he is still asymptomatic respiratory [place]. 03/20:Patient seen and examined, no new complaints, imaging studies of the Pelvis showed " There is severe healed posterior matter deformity involving the proximal/mid right femur that is only partially visualized. No obvious acute fracture or dislocation of either hip is identified within the limits of the exam" will recommend outpatient Ortho evaluations. Awaiting placement 03/21: Patient seen and examined, continue supportive care, authorization obtained and will proceed with discharge, will recommend, PT/OT at the facility and follow up with cardiology, vascular, Neurology and Ortho. Continued wound ma nagement. 03/22; Patient seen and examined, awaiting finale review by Vascular and report of the ultrasound 03/23: Per vascular. patient will folllow outpatient with them The pseudoaneurym persist, despite attempted closure with applied pressure. The pseudoaneurysm is stable, in size, and has no risk of rupture. Its small with a short neck and is therefore no amenable to percutaneous intervention at this time. Would recommend discharging the patient and having him follow up in the office with Dr. Tyson in 2 weeks. At that time he can be reevaluated with an arterial duplex to assess for thrombosis or change in size, if it persist. Management will be based off of the findings at that time. (1) Injury of femoral artery/pseudoaneurysm with right groin hematoma Current Visit: Yes Status: Acute Plan to address problem: Vascular surgery team consulted, right lower extremity Doppler, apply pressure dressing to right lower extremity, (2) CHF (congestive heart failure)/ischemic cardiomyopathy Current Visit: Yes Status: Acute Qualifiers: Heart failure type: systolic Heart failure chronicity: acute on chronic Qualified Code(s): I50.23 - Acute on chronic systolic (congestive) heart failure Plan to address problem: Strict I's/O, monitor urine output every shift, daily weight, afterload reduction, blood pressure control, supplemental oxygen, cardiology team consulted. (3) ALEXIS (acute kidney injury) secondary to vasomotor nephropathy Current Visit: Yes Status: Acute Plan to address problem: Monitor urine output every shift, daily weight, monitor fluid balance, (4) Seizure disorder Current Visit: Yes Status: Acute Plan to address problem: Continue antiepileptic therapy, supportive care. (5) Metabolic encephalopathy Current Visit: Yes Status: Acute Plan to address problem: Neuro check, seizure precautions, supportive care, aspiration precautions, fall precautions. (6) Malnutrition Current Visit: Yes Status: Acute Qualifiers: Malnutrition type: protein-calorie malnutrition Protein-calorie malnutrition severity: moderate Qualified Code(s): E44.0 - Moderate protein- calorie malnutrition Plan to address problem: Encourage increased protein intake when awake and alert only, dietary supplementation. (7) Vascular dementia/CVA per history Current Visit: Yes Status: Acute Qualifiers: Dementia behavioral disturbance: without behavioral disturbance Qualified Code(s): F01.50 - Vascular dementia without behavioral disturbance Plan to address problem: Verbal prompting, verbal redirection, benzodiazepine therapy as clinically indicated. (8) Cerebral atherosclerosis Current Visit: Yes Status: Acute Plan to address problem: Risk factor reduction, antiplatelet therapy, supportive care. (9) Diabetes melitis Current Visit: Yes Status: Acute Plan to address problem: Consistent carbohydrate diet, Accu-Chek, insulin protocol, hypoglycemia protocol (10) Hyperlipidemia Current Visit: Yes Status: Acute Qualifiers: Hyperlipidemia type: mixed hyperlipidemia Qualified Code(s): E78.2 - Mixed hyperlipidemia Plan to address problem: Statin therapy, supportive care. (11) Hypertension Current Visit: Yes Status: Acute Plan to address problem: Monitor blood pressure occasionally. Patient currently hypotensive. Hold antihypertensive therapy for systolic blood pressure less than equal to 110 mmHg. (12) Acute blood loss anemia (13) COVID-19 positive Disposition: [facility] Final Discharge Diagnosis (Prints w/discharge instructions): Injury of femoral artery/pseudoaneurysm with right groin hematoma. (2) CHF (congestive heart failure)/ischemic cardiomyopathy. Current Visit: Yes Status: Acute. Qualifiers: Heart failure type: systolic Heart failure chronicity: acute on chronic Qualified Code(s): I50.23 - Acute on chronic systolic (congestive) heart failure. (3) ALEXIS (acute kidney injury) secondary to vasomotor nephropathy. Time spent for discharge: 35 mins Core Measure Documentation - Palliative Care Palliative Care/ Comfort Measures: Not Applicable - Core Measures Any of the following diagnoses?: none Exam - Physical Exam Narrative exam: VITAL SIGNS: Reviewed. GENERAL: The patient appears normally developed, vital signs as documented. HEAD: No signs of head trauma. EYES: Pupils are equal. Extraocular motions intact. EARS: Hearing grossly intact. MOUTH: Oropharynx is normal. NECK: No adenopathy, no JVD. CHEST: Chest with clear breath sounds bilaterally. No wheezes, rales, or rhonchi. CARDIAC: Regular rate and rhythm. S1 and S2, without murmurs, gallops, or rubs. VASCULAR: No Edema. Peripheral pulses normal and equal in all extremities. ABDOMEN: Soft, non tender and non distended. No rebound or guarding, and no masses palpated. Bowel Sounds normal. MUSCULOSKELETAL: right groin hematoma, pressure dressing still in place mild ecchymosis noted, tender to touch positive pedal pulses distal to the area good range of motion of all major joints but improved. Extremities without clubbing, cyanosis or edema. Moves lower extremities NEUROLOGIC EXAM: Alert and oriented x 3 No focal sensory or strength deficits. Speech normal. Follows commands. PSYCHIATRIC: Mood normal. SKIN: detail exam as documented in skin assessment T - Constitutional Vitals: Temp Pulse Resp BP Pulse Ox 98.5 F 94 H 18 127/73 96 03/23/22 04:42 03/23/22 04:42 03/23/22 04:42 03/23/22 04:42 03/23/22 04:42 Plan Activity: advance as tolerated, fall precautions Diet: diabetic Special Instructions: record daily weights, record daily BP diary, record blood sugar diary Plan of Treatment: Continue aspirin and Plavix. Follow-up with vascular for ultrasound. And follow-up with cardiology. Follow up with: [facility]Outside] - 7 Days PIPPA TYSON MD [Staff Physician] - 7 Days PRIMARY CAREMD [Primary Care Provider] - 3-5 Days FAROOQ ARRINGTON MD [Staff Physician] - 7 Days CLARA ZEE MD [Staff Physician] - 03/17/22 8:30 am DANNA SAVAGE MD [Staff Physician] - 7 Days Prescriptions: Sennosides/Docusate Sodium [Docusate Sodium-Senna Tablet] 1 each PO DAILY 7 Days #7 oxyCODONE /ACETAMINOPHEN [Percocet 5/325 mg] 1 tab PO Q6H PRN #10 tablet PRN Reason: Pain, Moderate (4-6) Simethicone 125 mg PO Q12H 5 Days #10 cap
[2022-03-23] MEDS: INSULIN LISPRO 100 UNIT/ML SUB-Q SCH ×3 (07:57→16:30)
[2022-03-23] MEDS: HEPARIN 5,000 UNIT/1 ML VIAL SUB-Q SCH (09:12)
[2022-03-23] MEDS: ASPIRIN 81 MG TAB CHEW PO SCH (09:12)
[2022-03-23] MEDS: FAMOTIDINE 10 MG TAB PO SCH (09:12)
[2022-03-23] MEDS: allopurinoL 100 MG TAB PO SCH (09:12)
[2022-03-23] MEDS: hydroCHLOROthiazide 12.5 MG CAP PO SCH (09:12)
[2022-03-23] MEDS: CLOPIDOGREL 75 MG TAB PO SCH (09:12)
[2022-03-23] MEDS: PHENYTOIN 100 MG CAPSULE.ER PO SCH (09:12)
[2022-03-23] MEDS: KETOCONAZOLE 2% CREAM 15 GM TP SCH (09:22)
== END 2022-03-23 12:30 | DRG 299 ==
LOC: ED 13:07 → 4A 03-07 11:54 → UNDODISIN 03-10 12:00 → 3A 03-12 16:03
PROVIDERS: ADMIT Internal Medicine; ATTEND Internal Medicine
PROC: 30233N1 Transfusion of Nonautologous Red Blood Cells into Peripheral Vein, Percutaneous Approach (ICD-10-PCS; principal; 2022-03-08)
DX: T81.718A Complication of other artery following a procedure, not elsewhere classified, initial encounter (principal); G93.41 Metabolic encephalopathy; I50.23 Acute on chronic systolic (congestive) heart failure; N17.0 Acute kidney failure with tubular necrosis; U07.1 COVID-19; E44.0 Moderate protein-calorie malnutrition; D62 Acute posthemorrhagic anemia; I69.351 Hemiplegia and hemiparesis following cerebral infarction affecting right dominant side; I13.0 Hypertensive heart and chronic kidney disease with heart failure and stage 1 through stage 4 chronic kidney disease, or unspecified chronic kidney disease; Z68.24 Body mass index [BMI] 24.0-24.9, adult; F01.50 Vascular dementia, unspecified severity, without behavioral disturbance, psychotic disturbance, mood disturbance, and anxiety; G40.909 Epilepsy, unspecified, not intractable, without status epilepticus; Y84.0 Cardiac catheterization as the cause of abnormal reaction of the patient, or of later complication, without mention of misadventure at the time of the procedure; I67.2 Cerebral atherosclerosis; I25.709 Atherosclerosis of coronary artery bypass graft(s), unspecified, with unspecified angina pectoris; M10.9 Gout, unspecified; E78.2 Mixed hyperlipidemia; I25.5 Ischemic cardiomyopathy; E11.22 Type 2 diabetes mellitus with diabetic chronic kidney disease; N18.9 Chronic kidney disease, unspecified; I72.4 Aneurysm of artery of lower extremity; I25.10 Atherosclerotic heart disease of native coronary artery without angina pectoris; Z79.82 Long term (current) use of aspirin; Z79.899 Other long term (current) drug therapy; I25.2 Old myocardial infarction; Z83.3 Family history of diabetes mellitus; Z82.49 Family history of ischemic heart disease and other diseases of the circulatory system; Y92.89 Other specified places as the place of occurrence of the external cause
CPT/HCPCS: 36415; 72170; 74018; 80048; 82962; 83036; 85025; 85027; 86850; 86900; 86901; 86920; 93005; 93460; 94640; G0378; J1815; J3490; J7060; Q9967; C1894; J1170; J1250; J1644; J1940; J2250; J2270; J2405; J3010; J7030; J7120; P9016; U0003